=== PATIENT | female | born 1935 | race Caucasian/White ===

== ENCOUNTER 2017-12-17 19:17 | Inpatient (IN) | payer MEDICARE ==
[2017-12-17 21:08] LABS: Troponin I 0.037 ng/mL (< 0.028)
[2017-12-17] MEDS ORDERED: Acetaminophen 325 MG TAB PO PRN ×2 (22:37→23:44)
[2017-12-17] MEDS ORDERED: Dextrose 5% in Water 1,000 ML IV PRN (23:44)
[2017-12-17] MEDS ORDERED: Guaifenesin DM 100-10/5 ML UDCUP PO PRN (23:44)
[2017-12-17] MEDS ORDERED: Dextrose 50% Abboject 50 ML SYRINGE SLOW IVP PRN (23:44)
[2017-12-18] MEDS: Sodium Chloride 0.9% 1,000 ML IV SCH ×3 (00:42→13:58)
[2017-12-18 00:50] LABS: Hemoglobin A1c 6.3 % (4.0-6.0)
[2017-12-18 01:03] LABS: Iron 44 ug/dL (50-170); Iron Binding Capacity, Total 155 mcg/dL (265-497)
[2017-12-18 01:35] LABS: Folate (Folic Acid) 6.8 ng/mL (7.0-31.4)
[2017-12-18 04:54] LABS: #Eosinphils 0.2 thou/uL (0.0-0.7); #Lymphocytes 1.8 thou/uL (1.20-3.40); #Monocytes 0.4 thou/uL (0.11-0.59); %Basophils 0.1 % (0.0-1.0); %Eosinophils 1.6 % (0.0-10.0); %Lymphocytes 12.1 % (21.0-51.0); %Neutrophils 83.1 % (42.0-75.0); Hemoglobin 8.4 g/dL (12.0-16.0); Mean Corpuscular HGB CONC 33.3 g/dL (32.0-36.0); Mean Corpuscular Hemoglobin 30.2 pg (27.0-31.0); Mean Corpuscular Volume 90.9 fl (81.0-99.0); Mean Platelet Volume 6.4 fL (7.4-10.4); Platelet Count 374 thou/uL (130-400); RBC Distribution Width 13.1 % (11.5-14.5); Red Blood Cell (RBC) Count 2.79 mill/uL (4.20-5.40); White Blood Cell (WBC) Count 14.5 thou/uL (4.8-10.8)
[2017-12-18 05:12] LABS: Albumin 2.3 g/dL (3.4-4.8); Anion Gap 18 mmol/L (10-20); BUN (Urea Nitrogen) 102 mg/dL (9.8-20.1); BUN/Creatinine Ratio 15.84; Calc. Creatinine Clearance 7 mL/min (70-130); Calcium 8.1 mg/dL (7.8-10.44); Carbon Dioxide 22 mmol/L (23-31); Chloride 95 mmol/L (98-107); Estimated GFR-MDRD 6; Glucose 89 mg/dL (83-110); Phosphorus 4.8 mg/dL (2.3-4.7); Potassium 3.6 mmol/L (3.5-5.1); Sodium 131 mmol/L (136-145)
[2017-12-18] MEDS: Pantoprazole 40 MG VIAL IVP SCH ×2 (08:10→22:16)
[2017-12-18] MEDS: Docusate 100 MG CAP PO SCH ×2 (08:10→22:16)
[2017-12-18] MEDS: Carvedilol 6.25 MG TAB PO SCH ×2 (08:10→18:00)
--- NOTE | 2017-12-18 08:46 | PDOC.PN ---
- Subjective Encounter Start Date: 12/18/17 Encounter Start Time: 08:45 Continues to report very dry mouth and throat. Reports she has had difficulty with voiding. [place] the urge, but could not void. Denies CP. - Objective Resuscitation Status: Resuscitation Status FULL:Full Resuscitation MAR Reviewed: Yes Vital Signs & Weight: Vital Signs (12 hours) Temp Pulse Resp BP Pulse Ox 12/18/17 08:08 98.6 F 61 19 156/70 H 95 12/18/17 04:00 98.6 F 62 16 138/69 93 L 12/17/17 23:44 93 L 12/17/17 22:50 98.2 F 62 20 93 L 12/17/17 22:39 98.2 F 62 20 134/89 93 L Weight Weight 153 lb 9.6 oz I&O: 12/17/17 12/18/17 12/19/17 06:59 06:59 06:59 Intake Total 788 Output Total 475 Balance 313 Result Diagrams: 12/18/17 03:49 12/18/17 03:49 Additional Labs: Accuchecks 12/18/17 05:49 POC Glucose 105 Phys Exam - Physical Examination Constitutional: NAD HEENT: PERRLA, oral pharynx no lesions Oral mucosa is relatively moist. Neck: no JVD Respiratory: no wheezing, no rales Cardiovascular: RRR Has high pitched holosystolic murmur that could be a rub. Gastrointestinal: soft, non-tender, no distention, positive bowel sounds Musculoskeletal: no edema Neurological: non-focal Psychiatric: normal affect Deviation from normal: Became tearful on discussing her diagnoses. Skin: no rash Dx/Plan (1) Acute renal failure Status: Acute Qualifiers: Acute renal failure type: unspecified Qualified Code(s): N17.9 - Acute kidney failure, unspecified Plan: Unclear etiology. Possibly diabetes and HTN. Possibly obstructive uropathy based her her history. Nephrology consult pending. IVF for now. Evans in place. (2) Anemia Code(s): D64.9 - ANEMIA, UNSPECIFIED Status: Acute Qualifiers: Anemia type: unspecified type Qualified Code(s): D64.9 - Anemia, unspecified Plan: Likely multifactorial. Most likley source is the renal failure. Has low Fe, but low Fe binding capacity. Also has slightly low folate. No specific evidence of GI bleed. Hemoccult pending. Will need to monitor with hydration. (3) Heart failure Code(s): I50.9 - HEART FAILURE, UNSPECIFIED Status: Acute Qualifiers: Heart failure type: unspecified Plan: Suspect high output failure secondary to anemia and possibly dehydration. Echo pending and Cardiology consult pending. (4) Hypertensive urgency Code(s): I16.0 - HYPERTENSIVE URGENCY Status: Resolved Plan: Initially presented to the outside ED with Severe HTN, but resolved quickly. 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 (6) Hearing loss Code(s): H91.90 - UNSPECIFIED HEARING LOSS, UNSPECIFIED EAR Status: Chronic - Plan * Will hold Lovenox until we can rule out GIB. SCD's in place.
[2017-12-18] MEDS ORDERED: Enoxaparin Sodium 30 MG/0.3 ML SYRINGE SC SCH (09:00)
[2017-12-18] MEDS ORDERED: Famotidine 20 MG TAB PO SCH (09:00)
--- NOTE | 2017-12-18 11:52 | ULT ---
ULTRASOUND RENAL BILATERAL STANDARD: Date: 12/18/17 HISTORY: Acute kidney injury. COMPARISON: None. TECHNIQUE: Real-time Quiñonez scale with color evaluation of the kidneys performed. FINDINGS: The right kidney measures 10.7 x 5.0 x 5.2 cm. The left kidney measures 10.8 x 6.2 x 6.3 cm. Moderate left-sided hydronephrosis. No mass. IMPRESSION: 1. Moderate left-sided hydronephrosis. 2. Bilateral echogenic nonshadowing foci suggesting small stones. CT may be beneficial to evaluate f or distal left obstructive process. POS: [facility]
[2017-12-18 12:24] LABS: Mean Corpuscular HGB CONC 32.2 g/dL (32.0-36.0); Mean Corpuscular Hemoglobin 29.2 pg (27.0-31.0); Mean Corpuscular Volume 90.8 fl (81.0-99.0); Mean Platelet Volume 6.3 fL (7.4-10.4); Platelet Count 368 thou/uL (130-400); RBC Distribution Width 12.9 % (11.5-14.5); Red Blood Cell (RBC) Count 2.73 mill/uL (4.20-5.40); White Blood Cell (WBC) Count 14.1 thou/uL (4.8-10.8)
--- NOTE | 2017-12-18 12:49 | HP ---
REASON FOR ADMISSION: Acute renal failure, severe dehydration, chronic anemia, demand ischemia, new onset diabetes mellitus type 2, hypoalbuminemia likely due to renal failure, congestive heart failure exacerbation. HISTORY OF PRESENT ILLNESS: Please note the patient is a very poor historian. She is also very hard of hearing. Most of this conversation is through writing on a sheet of paper with the patient confirming verbally. She states she has been thirsty and could not urinate much. This has been ongoing for few weeks now. She also had trouble passing urine with burning urination as well. She had gone to see her primary care physician 2-3 weeks back. As this was not resolving, the patient went to [facility]. The patient also had generalized weakness and was not feeling right. The patient had gone to [facility] on the with complaints of sore throat, nasal congestion and cough. She had also mentioned about urinary incontinence then. The patient was diagnosed with allergic rhinitis. She in fact had normal creatinine of 1.0 in 2016. Currently, creatinine is 6.8, BUN is 94. Also, patient's hemoglobin was 15 in 2016, current hemoglobin is 9.9 with hematocrit of 27. Her hematocrit was 42 on 11/10/2015. PAST MEDICAL AND SURGICAL HISTORY: Hypertension, diabetes mellitus type 2, dyslipidemia, . CURRENT MEDICATIONS: Metformin 500 mg daily, atenolol with chlorthalidone 100/ 25 mg q.a.m., TriCor 145 mg daily, atorvastatin 80 mg p.o. q.a.m. ALLERGIES: CODEINE. PERSONAL HISTORY: Does not abuse alcohol or drugs. No history of smoking. FAMILY HISTORY: Has a son who is in his 40s with cerebral palsy whom patient takes care of. The patient has outlived all her siblings. Her sister of unknown cancer. REVIEW OF SYSTEMS: The following complete review of systems was negative, unless otherwise mentioned in the HPI or below: Constitutional: Weight loss or gain, ability to conduct usual activities. Skin: Rash, itching. Eyes: Double vision, pain. ENT/Mouth: Nose bleeding, neck stiffness, pain, tenderness. Cardiovascular: Palpitations, dyspnea on exertion, orthopnea. Respiratory: Shortness of breath, wheezing, cough, hemoptysis, fever or night sweats. Gastrointestinal: Poor appetite, abdominal pain, heartburn, nausea, vomiting, constipation, or diarrhea. Genitourinary: Urgency, frequency, dysuria, nocturia. Musculoskeletal: Pain, swelling. Neurologic/Psychiatric: Anxiety, depression. Allergy/Immunologic: Skin rash, bleeding tendency. CODE STATUS: FULL. PHYSICAL EXAMINATION: GENERAL: The patient is an 82-year-old female who is currently not in any acute distress. VITAL SIGNS: Blood pressure on arrival was 199/86, pulse 60 per minute, respiratory rate 18 per minute, temperature 97.9 degrees Fahrenheit, saturating 95% on room air. NECK: Supple, no elevated JVD. HEENT: Eyes: Extraocular muscles intact. Pupils reacting to light. Oral cavity mucous membranes are dry. No exudates or congestion. CARDIOVASCULAR SYSTEM: S1, S2 heard. Regular rhythm. RESPIRATORY: Air entry 1+ bilateral. No rales or rhonchi. ABDOMEN: Soft, bowel sounds heard. No tenderness, rigidity or guarding. EXTREMITIES: No peripheral edema or calf tenderness. VASCULAR SYSTEM: Peripheral pulses 1+ bilateral, no ischemic ulcerations or gangrene. CENTRAL NERVOUS SYSTEM: No gross focal deficits noted. The patient is alert, awake, and oriented well. PSYCHIATRIC SYSTEM: The patient's mood is euthymic. No hallucinations or delusions. LABORATORY AND X-RAY FINDINGS: EKG done shows sinus rhythm at 63 beats per minute. There are signs of LVH with poor R-wave progression seen. White count of 17, H&H 10 and 27, platelet count is 473, MCV 79 with 83% neutrophils. Electrolytes are stable. BUN 94, creatinine 6.8, serum glucose was 121. HbA1c 6.3, serum iron 44, TIBC 155, folic acid 6.8, troponin I indeterminate peaking up to 0.03. BNP is 2397, albumin is 2.7. TSH 2.78. UA shows large blood with trace leukoesterase, 11-20 rbc's, rare few urine bacteria. Chest x-ray done shows mild cardiomegaly. CLINICAL IMPRESSION AND PLAN: The patient will be admitted to telemetry for acute renal failure, possible GI bleed with anemia. The patient also has elevated BNP and hypertensive urgency on arrival. She has demand ischemia as well. She will be on Coreg 6.25 mg twice daily, Protonix 40 mg IV q.12 hourly and normal saline at 100 mL per hour. We will obtain echo with 2D Doppler for LV function. The patient will be kept n.p.o. for possible endoscopies in the morning. We will consult Dr. Thrasher for Gastroenterology, Dr. Roman for Nephrology and Dr. Bowman for Cardiology. We will obtain stool occult blood. The patient had normal renal function and hemoglobin of 15 in November 2015. The patient is a very poor historian and it is unclear if she had melena or bleeding. We will continue to closely monitor her on telemetry. The patient has a hearing device, but still needs the questions to be handwritten for her verbal response. It is unclear if the battery for her hearing aid is working at present and staff will be looking into it to help with better communication. Code status is FULL for now. Please note I have seen and examined on 2017. BHAKTID
[2017-12-18 12:52] LABS: Anion Gap 18 mmol/L (10-20); BUN (Urea Nitrogen) 102 mg/dL (9.8-20.1); Calc. Creatinine Clearance 7 mL/min (70-130); Calcium 8.3 mg/dL (7.8-10.44); Carbon Dioxide 24 mmol/L (23-31); Chloride 96 mmol/L (98-107); Estimated GFR-MDRD 6; Glucose 101 mg/dL (83-110); Potassium 4.3 mmol/L (3.5-5.1); Sodium 134 mmol/L (136-145)
--- NOTE | 2017-12-18 16:31 | CT ---
CT ABDOMEN AND PELVIS WITHOUT CONTRAST: 12/18/17 HISTORY: Hydronephrosis. FINDINGS: Absence of oral and IV contrast reduces the sensitivity of exam particularly for evaluation of solid organs and bowel. Small bilateral pleural effusions are seen. No free air or free fluid is seen in the abdomen or pelvi s. No calcified gallstones are identified. There are calcified granulomas in the liver. Accessory spl eens are present. No calculi are seen in the kidneys, ureters or the urinary bladder. No hydroureteronephrosis noted on either side. There is a Evans catheter in the urinary bladder. A normal appearing appendix is present. The uterus is present. There is sigmoid diverticulosis. There is fecal material in the colon and rectum. Degenerative changes are present in the spine. IMPRESSION: 1. No CT evidence of urinary tract calculi or obstruction. 2. Sigmoid diverticulosis. 3. Small bilateral pleural effusions. POS: [facility]
[2017-12-18] MEDS ORDERED: Bisacodyl 10 MG SUPP PR PRN (17:45)
--- NOTE | 2017-12-18 19:01 | CON ---
DATE OF CONSULTATION: 12/18/2017 REFERRING PHYSICIAN: Dr. Glenory Alfonso. REASON FOR CONSULTATION: Anemia. HISTORY OF PRESENT ILLNESS: Ms. Vernon Ramos is a very pleasant 82-year-old female, wh o was seen in the ER because of history of some difficulty breathing and also feeling weak, dizzy and lethargic. The patient also complains of dry mouth. The patient was found to have multiple abnorma l findings on evaluation. 1. She is anemic. 2. Evidence of acute renal failure with markedly elevated BUN. The patient has no prior history of any kidney disease. The patient is extremely hard of hearing. She is awake, alert, and communicativ e. I was able to write-down the questions on a piece of paper and I got good response from the patie nt. The patient did have abdominal pain, nausea, vomiting. No history of dysphagia or odynophagia. Her bowel movements are fairly regular. There is no hematochezia or any melena. The patient has no prior history of GI disorder. She is being evaluated by Cardiology and also by Nephrology because o f history of heart failure and also acute renal failure. Although there is history of heart failure, she is lying down flat and she is not short of breath. Denies any chest discomfort, chest tightness , or any dyspnea. She has no relevant history. ALLERGIES: None. SOCIAL HISTORY: The patient does not smoke or drink alcohol. MEDICAL ILLNESSES: 1. Hypertension 2. Hyperlipidemia. 3. History of heart murmur and had an echocardiogram in 2009 and was found to have mitral regurgitat ion and also mild tricuspid regurgitation. 4. No history of diabetes, no history of heart disease or lung disease. PAST SURGICAL HISTORY: No prior surgical history is available. MEDICATIONS: Include, metformin, atenolol, TriCor, and atorvastatin. 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 RESPIRATORY SYSTEM: No his tory of chronic cough, hemoptysis, dyspnea. CARDIOVASCULAR SYSTEM: No chest pain, no palpitation. Does have some dyspnea on admission, but she is not having this anymore. GI: No abdominal pain, no nausea or vomiting. No hematemesis, melena or dysphagia. GENITOURINARY: No dysuria or hematuria. MUSCULOSKELETAL/ENDOCRINE/HEMATOLOGICAL: Nonrelevant. NEUROPSYCHIATRIC: Nonrelevant. CONSTITUTION AL: No history of fever, no weight loss. PHYSICAL EXAMINATION: GENERAL: Reveals a very pleasant, elderly white female, appears very comfortable. She does communic ate by writing on a piece of paper. She is very hard of hearing. VITAL SIGNS: Afebrile, pulse is around 68, and blood pressure 160/90. HEENT: Conjunctivae clear. NECK: Supple. No adenitis or thyromegaly noted. CARDIOVASCULAR SYSTEM: First and second heart sounds are normal. She has a systolic murmur grade 3/ 6. LUNGS: Clear to auscultation. ABDOMEN: Soft to palpate. Abdomen is nondistended. Abdomen is nontender. There is no organomegaly or masses. Bowel sounds normal. EXTREMITIES: Reveal no edema. LABORATORY DATA: Shows anemia, which is actually normocytic. WBC 14,500, hemoglobin 8.4, hematocrit 26.4, MCV 90.9, platelet count 374,000, polymorphs 83, lymphocytes 12, and monocytes 3. Serum chemi stries; sodium 131, potassium 3.6, chloride 95, bicarbonate 22, BUN is 102, creatinine 6.44, glucose 89, calcium 8.1. Serum iron is 44, TIBC 155, ferritin level is high at 2438. Vitamin B12 893 and fo late 6.80. CLINICAL IMPRESSION: 1. An 82-year-old female with anemia with acute renal failure. The anemia is normocytic. She has iron deficiency. The anemia is multifactorial including anemia of chronic diseases, renal f ailure, etc. The patient has no history of any GI bleeding in form of melena or hematemesis. 2. Hypertension. 3. Hyperlipidemia. 4. Acute renal failure. 5. Heart murmur with echo showing mitral regurgitation in 2009. RECOMMENDATIONS: 1. Obtain stool for guaiac. 2. Symptomatic treatment. does plan for colonoscopy if guaiac is positive.
--- NOTE | 2017-12-18 19:12 | CON ---
DATE OF CONSULTATION: 12/18/2017 CARDIOLOGY CONSULTATION INDICATION FOR CONSULTATION: She is an elderly 82-year-old female with acute renal insufficiency and history of anemia. She denies any previous cardiac history. She does have evidence of left ventricular hypertrophy. We were asked to see her for possible heart failure. HISTORY OF PRESENT ILLNESS: This is a very pleasant 82-year-old female who appears to have some form of dementia. She is very difficult to have a discussion with. She does have hearing loss and apparently has some dementia. She presented apparently as she says she has been complaining of increasing fatigue. She was admitted due to hypertensive urgency. She does have a history of diabetes and anemia and was noted to have acute renal failure with a creatinine of 6.44. As far as any of the history, I am unable to obtain any further history from this patient. She seems to be very fatigued today and kept saying that she was just tired and she was very hesitant to answer any questions at this time, but from what I can ascertain, she denies any chest pain. She has had no significant shortness of breath. She says that she has been having some problems urinating. Otherwise, she has I believe complained of some sore throat previously and some nasal congestion. PAST MEDICAL HISTORY: Significant for diabetes, hypertension. She has had a C- section and dyslipidemia. MEDICATIONS PRIOR TO ADMISSION: Included atenolol, chlorthalidone, metformin, TriCor and atorvastatin. ALLERGIES: Allergic to CODEINE. SOCIAL HISTORY: There is no history of alcohol and tobacco abuse. FAMILY HISTORY: Noncontributory for any early heart disease. She has one son who is 40 with cerebral palsy and the patient apparently has been taking care of him. REVIEW OF SYSTEMS: Please refer to the notes already dictated. She did not complain of any pulmonary complaints or GI complaints at this time except some indigestion type symptoms and decreased appetite, but she had no complaints of chest pain and she has had no complaints of lower extremity edema. No history of seizures or syncope. PHYSICAL EXAMINATION: GENERAL: Reveals an elderly female who is in no acute distress. She appears to be fatigued. VITAL SIGNS: Her blood pressure is 147/64, heart rate is 60 and regular, respiratory rate is 16. She is afebrile. O2 saturation is 95%. HEENT: Shows the head to be normocephalic, atraumatic. Carotid pulses are present without any bruits. CHEST: Clear. I did not hear any rales, rhonchi or wheezing. CARDIOVASCULAR: She has a loud systolic murmur at the apex, also which radiates over the entire precordium, most likely due to mitral valve regurgitation. Otherwise, there were no heaves or thrills noted. ABDOMEN: Soft and nontender. Positive bowel sounds are present. She has obesity. EXTREMITIES: Showed no clubbing, cyanosis or edema. Pedal pulses are difficult to palpate, but popliteal pulses are present. NEUROLOGIC: She does not have any gross focal motor deficits, but does appear to be fatigued. IMAGING: Her EKG shows a sinus rhythm with evidence of left ventricular hypertrophy, but otherwise no acute changes. LABORATORY DATA: Unremarkable for any evidence of myocardial infarction, but her creatinine is now 6.52, earlier it was 6.44 with a BUN of 102. I do not see that we have evaluated for any specific cardiac enzymes. Her potassium was 4.3. Blood sugar is 113. Hemoglobin is 8 with a hematocrit of 24.8, WBC of 14.1 and platelet count of 368,000. Her MB in the past, she had one yesterday and it showed the MB to be negative. Troponin I also was indeterminate at 0.037 , not indicative of myocardial infarction. Her LDL was 97. TIBC was low at 155. 1. Acute renal insufficiency. 2. Anemia. 3. generalized weakness. At this time, she appears to be stable from a cardiac standpoint. I will await the results of the echocardiogram and this will be available later today, we can evaluate that. Otherwise, I do not have any further recommendations at this time. We will try to determine the etiology of her anemia to see whether or not she needs further evaluation or workup as far as that is concerned, but the echocardiogram will be giving some insight as to exactly whether or not she has any major issues from a cardiac standpoint. I did not believe she is a good candidate at this time to undergo any type of interventional procedure otherwise from a cardiac standpoint. We would be more than happy to follow the patient with you, but it would appear that her most significant problems are due to the chronic kidney disease, which may be acute on chronic as well as the anemia. Echocardiogram has been ordered and we will evaluate that later today and further recommendations will depend on the results of the echocardiogram. CLAUDY
[2017-12-18] MEDS ORDERED: Bisacodyl 10 MG SUPP PR SCH (19:15)
[2017-12-18 22:58] LABS: Creatinine, Urine 36.21 mg/dL (47-110)
--- NOTE | 2017-12-19 01:41 | CON ---
DATE OF CONSULTATION: 12/18/2017 REASON FOR CONSULT: Acute renal failure, hydronephrosis. HISTORY OF PRESENT ILLNESS: Ms. Ramos is an 82-year-old female, hard of hearing, poor historian admitted through the emergency room due to severe dehydration, chronic anemia, new onset diabetes, exacerbation of heart failure. Per nursing staff, patient complained of difficulty voiding, 16 [place] Evans catheter was placed by nursing staff on the floor with 400 mL of post-void residual. There was some difficulty passing the catheter per nursing staff; however, was passed without significant issues. Currently, urine is draining clear yellow. There is a remote history of possible kidney stones, patient again does not recall her history. No family at bedside. She has difficulty quantifying her history as far as her urinary symptoms. Much of the history is obtained per chart and imaging reviewed. Nephrology has been consulted due to significant uremia, BUN of 102, creatinine of 6.8 on admission. She presented with sodium of 131. Also per nursing staff, there is a history where she had possible otitis and poured oil like product down her ear which she subsequently digested resulting in sore throat and cough. PAST MEDICAL HISTORY: Hypertension, diabetes, dyslipidemia. PAST SURGICAL HISTORY: . HOME MEDICATIONS: Include metformin, chlorthalidone, TriCor, and statin. IN HOUSE MEDICATIONS: Include Tylenol, Coreg, glucagon, Colace, Robitussin, and Humalog. 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 REVIEW OF SYSTEMS: Ten-point review of systems as above, otherwise noncontributory. PHYSICAL EXAMINATION: VITAL SIGNS: Stable, temperature 98, pulse 60, respirations 16, sats 95, blood pressure 147/61. GENERAL: The patient resting comfortably. HEART: Regular rate. LUNGS: Decreased inspiratory effort. ABDOMEN: Soft with no rigidity, no rebound, no CVA tenderness. GENITOURINARY: Evans catheter is secured, draining clear yellow urine. There is severe atrophic vaginitis. The urethral meatus is easily visible. No significant prolapse is appreciated. EXTREMITIES: No cyanosis, clubbing, or edema. PERTINENT LABS AND IMAGING: White count 14, hemoglobin 8, platelets 368. No significant shift, presented with sodium of 131, today is 134. Presenting creatinine is 6.8, today is 6.5. BUN 102. Prior creatinine is 1.0 on 11/2015. Hemoglobin A1c on 12/2017 is 6.3. Urinalysis: Yellow, 100 protein, trace leukocytes, 0-3 wbc's, no bacteria, 0-3 squamous cells, 11-20 rbc's and this is a catheterized specimen. IMAGING: Renal ultrasound demonstrates moderate left hydronephrosis, bilateral echogenic foci suggesting small kidney stones, recommend CT. CT stone protocol obtained this afternoon on 12/18/2017 demonstrates no evidence of obstruction, renal calculi or ureteral calculi. Evans catheter in the bladder, sigmoid diverticulosis, small bilateral pleural effusion. IMPRESSION AND PLAN: 1. Ms. Ramos is an 82-year-old female, hard of hearing with history of diabetes, hypertension, dyslipidemia, admitted for vague complaints as above found to have renal failure, congestive heart failure exacerbation. 2. The patient uremic with BUN of 102, creatinine 6.5. CT scan results reviewed with radiologist demonstrating no evidence of obstructive uropathy, no evidence of ureteral renal calculi. She presented with hesitancy and 400 mL of post-void residual, there is a possibility that hydronephrosis was due to acute urinary retention. Recommend indwelling Evans catheter for now as the patient is being optimized medicall/ Nephrology regarding acute renal failure which is likely prerenal/renal. Microscopic hematuria likely due to catheter placed specimen. Elective cystoscopy would be advised. Avoid nephrotoxins. Urine culture pending. Continue indwelling Evans catheter for now for strict I's and O's. 3. Constipation. Recommend Dulcolax suppository p.r.n. as it can excess the urinary retention. 4. Voiding trial in a few days, pending her medical optimization. [facility]
[2017-12-19 05:23] LABS: #Eosinphils 0.2 thou/uL (0.0-0.7); #Lymphocytes 1.5 thou/uL (1.20-3.40); #Monocytes 0.5 thou/uL (0.11-0.59); #Neutrophils 12.1 thou/uL (1.40-6.50); %Basophils 0.1 % (0.0-1.0); %Eosinophils 1.6 % (0.0-10.0); %Lymphocytes 10.4 % (21.0-51.0); %Monocytes 3.3 % (0.0-10.0); %Neutrophils 84.6 % (42.0-75.0); Hemoglobin 7.8 g/dL (12.0-16.0); Mean Corpuscular HGB CONC 33.3 g/dL (32.0-36.0); Mean Platelet Volume 5.8 fL (7.4-10.4); Platelet Count 339 thou/uL (130-400); RBC Distribution Width 13.1 % (11.5-14.5); Red Blood Cell (RBC) Count 2.61 mill/uL (4.20-5.40); White Blood Cell (WBC) Count 14.3 thou/uL (4.8-10.8)
[2017-12-19 05:38] LABS: ALT (SGPT) 19 U/L (8-55); AST (SGOT) 16 U/L (5-34); Albumin 2.3 g/dL (3.4-4.8); Alkaline Phosphatase 89 U/L (40-150); Anion Gap 18 mmol/L (10-20); BUN (Urea Nitrogen) 97 mg/dL (9.8-20.1); Bilirubin, Total 0.3 mg/dL (0.2-1.2); Calc. Creatinine Clearance 7 mL/min (70-130); Calcium 8.3 mg/dL (7.8-10.44); Carbon Dioxide 20 mmol/L (23-31); Chloride 99 mmol/L (98-107); Estimated GFR-MDRD 6; Globulin 3.8 g/dL (2.4-3.5); Glucose 102 mg/dL (83-110); Potassium 3.6 mmol/L (3.5-5.1); Protein, Total 6.1 g/dL (6.0-8.3); Sodium 133 mmol/L (136-145)
--- NOTE | 2017-12-19 08:08 | CON ---
DATE OF CONSULTATION: 12/18/2017 CONSULTING PHYSICIAN: Glenroy Alfonso MD REASON FOR CONSULTATION: Acute kidney injury. REASON FOR ADMISSION: Fatigue. HISTORY OF PRESENT ILLNESS: This is an 82-year-old white female with history of hypertension, type 2 diabetes, hyperlipidemia who came to the hospital with above complaint elevated creatinine. H er creatinine on admission was 6.8 to 6.4. Her last creatinine in 2015 was 1.06 that was available. The patient is a poor historian. Denies any fever or chills. No nausea or vomiting. No chest pain . She is having some sore throat, nasal congestion, and cough. PAST MEDICAL HISTORY: Positive for hypertension, type 2 diabetes, hyperlipidemia. PAST SURGICAL HISTORY: . HOME MEDICATIONS: Metformin, atenolol/chlorthalidone, atorvastatin calcium. ALLERGIES: CODEINE. SOCIAL HISTORY: No smoking, alcohol, or illicit drug abuse. FAMILY HISTORY: No history of kidney disease. REVIEW OF SYSTEMS: The following complete review of systems was negative, unless otherwise mentioned in the HPI or below: Constitutional: Weight loss or gain, ability to conduct usual activities. Skin: Rash, itching. Eyes: Double vision, pain. ENT/Mouth: Nose bleeding, neck stiffness, pain, tenderness. Cardiovascular: Palpitations, dyspnea on exertion, orthopnea. Respiratory: Shortness of breath, wheezing, cough, hemoptysis, fever or night sweats. Gastrointestinal: Poor appetite, abdominal pain, heartburn, nausea, vomiting, constipation, or diarrhea. Genitourinary: Urgency, frequency, dysuria, nocturia. Musculoskeletal: Pain, swelling. Neurologic/Psychiatric: Anxiety, depression. Allergy/Immunologic: Skin rash, bleeding tendency. PHYSICAL EXAMINATION: GENERAL: This is a well-built female in no apparent distress. VITAL SIGNS: Temperature 97.5, pulse 58, respirations 16, blood pressure 144/64. HEENT: Atraumatic, normocephalic. Oral mucosa is moist. NECK: Supple. No masses. CARDIOVASCULAR: S1, S2 heard. RESPIRATORY: Clear. GASTROINTESTINAL: Abdomen soft. MUSCULOSKELETAL: 1+ edema. DERMATOLOGIC: No skin rash. NEUROLOGIC: Alert, awake. PSYCHIATRIC: Mood and affect normal. LABORATORY AND X-RAY FINDINGS: Hemoglobin is 8, WBC of 14.1, platelets 368. Sodium 134, potassium i s 4.3, BUN is 102, creatinine is 6.5, hemoglobin A1c is 6.3, phosphorus 4.8, 28, ferritin is 24 38. No urine studies available. Renal ultrasound with possible left-sided hydronephrosis and calcul i, but CT abdomen with no calculi, no obstruction. ASSESSMENT: 1. Acute kidney injury on chronic kidney disease, stage not known. No recent labs available. The p atient apparently had upper respiratory symptoms, which could suggest immunological causes. Plan is to check urine studies and urine protein to creatinine ratio. We will also rule out and ANCA and ant i-GBM. We will also check SPEP given the anemia. No iron deficiency noted. 2. Hyponatremia. 3. Hypochloremia. 4. Metabolic acidosis, resolved. 5. Possible aortic stenosis. Follow up with echo. 6. Elevated BNP. 7. Hypoalbuminemia. We will check urine protein to creatinine ratio. 8. Anemia. No obvious cause. Rule out any bleed. We will rule out any immunological causes given ANCA or SPEP. 9. Leukocytosis. 10. Left-sided hydronephrosis. We will have Urology opinion, but repeated CT scan ordered by Urolog y with no obstruction. PLAN: Plan is to reduce the IV fluids to 50 mL per hour. Avoid nephrotoxins. Renally dose all the medications. Current medication list reviewed and is acceptable and moving forward renally dose all the medications and we will continue to follow. We will also check CKD labs including PTH. The carlotta ent remains high risk for complications and cause for acute kidney injury not apparent, but there is no acute indication for dialysis. We will continue to follow. Thank you for the consult.
[2017-12-19] MEDS ORDERED: Epoetin (ESRD) 10,000 UNITS/ML VIAL SC SCH (09:00)
[2017-12-19] MEDS ORDERED: Folic Acid 1 MG TAB PO SCH (09:00)
[2017-12-19] MEDS: Pantoprazole 40 MG VIAL IVP SCH ×2 (09:03→20:51)
[2017-12-19] MEDS: Carvedilol 6.25 MG TAB PO SCH ×2 (09:03→16:34)
[2017-12-19] MEDS: Docusate 100 MG CAP PO SCH ×2 (09:03→20:51)
[2017-12-19] MEDS: Folic Acid 1 MG TAB PO SCH (09:04)
[2017-12-19] MEDS: Sodium Chloride 0.9% 1,000 ML IV SCH (10:13)
--- NOTE | 2017-12-19 10:31 | PRG ---
DATE OF SERVICE: 12/19/2017 SUBJECTIVE: The patient is sleeping, easily arousable. PHYSICAL EXAMINATION: VITAL SIGNS: Stable 97.2, 69, 20, 97%, 111/68. I's and O's are 2295 in, 625 out, one bowel movement. Urine output is concentrated yellow. ABDOMEN: Soft, nontender, nondistended. GENITOURINARY: Evans catheter draining adequately. LABORATORY DATA: White blood cell count 14, hemoglobin 7.8, platelets 239, BUN is 97, creatinine on admission is 6.4, today is 6.6. PERTINENT IMAGING: Follow up renal ultrasound demonstrating left hydronephrosis. CT demonstrated no evidence of hydronephrosis. No urinary tract obstruction. Sigmoid diverticulosis. Small bilateral pleural effusion. IMPRESSION/PLAN: 1. Ms. Ramos is an 82-year-old female with history of diabetes, hypertension. 2. Urologic consultation secondary to acute renal failure. 3. Follow up for renal ultrasound demonstrating left hydro demonstrates no evidence of hydronephrosis. 4. She presented with symptoms of hesitancy 400 mL of post-void residual, there is a possibility that this resulted in the initial left hydro; however, this has resolved with no evidence of hydronephrosis. Microscopic hematuria noted with catheter placement. Continue indwelling Evans catheter for now for strict I's and O's. 5. Constipation, treat p.r.n. as constipation can exacerbate urinary retention. will initiate voiding trial once her renal function stabilized and disposition per Renal has been finalized. will follow p.r.n. MTDD
--- NOTE | 2017-12-19 10:56 | PDOC.PN ---
- Subjective Encounter Start Date: 12/19/17 Encounter Start Time: 10:54 COMPLAINS OF A HEADACHE AND GENERALIZED FATIGUE. - Objective Resuscitation Status: Resuscitation Status FULL:Full Resuscitation Vital Signs & Weight: Vital Signs (12 hours) Temp Pulse Resp BP Pulse Ox 12/19/17 08:00 97.2 F L 69 20 97 12/19/17 07:25 97.2 F L 69 20 114/68 97 12/19/17 04:00 98.6 F 64 16 144/67 H 92 L Weight Weight 152 lb I&O: 12/18/17 12/19/17 12/20/17 06:59 06:59 06:59 Intake Total 788 2295 Output Total 475 625 Balance 313 1670 Result Diagrams: 12/19/17 05:08 12/19/17 05:08 Additional Labs: Accuchecks 12/19/17 12/18/17 12/18/17 06:03 20:31 16:47 POC Glucose 146 H 109 156 H 12/18/17 10:41 POC Glucose 113 H Phys Exam - Physical Examination Constitutional: NAD HEENT: PERRLA, oral pharynx no lesions Respiratory: no wheezing, no rales, no rhonchi, clear to auscultation bilateral Cardiovascular: RRR HIGH PITCHED APICAL MURMUR Gastrointestinal: soft, non-tender, no distention, positive bowel sounds Musculoskeletal: no edema Neurological: non-focal Deviation from normal: APPEARS TEARFUL AT TIMES AND THEN ABRUPTLY STOPS. Skin: no rash Dx/Plan (1) Acute renal failure Status: Acute Qualifiers: Acute renal failure type: unspecified Qualified Code(s): N17.9 - Acute kidney failure, unspecified Plan: NEPHROLOGY FOLLOWING. EVIDENCE OF MORE CHRONIC RENAL FAILURE AND THE CREATININE CONTINUES TO CLIMB. DISCUSSED WITH PATIENT THE FACT THAT HER RENAL FUNCTION IS WORSENING AND MAY ULTIMATELY RESULT THE NEED FOR DIALYSIS. HAS ELEVATED PTH AND PHOS WITH LOW VITAMIN D. WILL DEFER INTERVENTION TO NEPHROLOGY. UROLOGY DOES NOT APPRECIATE A POST-RENAL SOURCE OF THE RENAL FAILURE. WORK STILL ONGOING. (2) Anemia Code(s): D64.9 - ANEMIA, UNSPECIFIED Status: Acute Qualifiers: Anemia type: unspecified type Qualified Code(s): D64.9 - Anemia, unspecified Plan: EVALUATED BY GI. NO EVIDENCE OF GI BLEEDING. WILL HEME CHECK STOOLS. NONE SO FAR. HEMOGLOBIN CONTINUES TO DECLINE WITH HYDRATION. HAS SOME FE DEFICIENCY, BUT LOW BINDING CAPACITY. LIKELY MULTIFACTORIAL, BUT PRIMARILY RELATED TO RENAL FAILURE. WILL CONTINUE TO MONITOR. (3) Heart failure Code(s): I50.9 - HEART FAILURE, UNSPECIFIED Status: Acute Qualifiers: Heart failure type: unspecified Plan: CARDIOLOGY FOLLOWING. NO SUGGESTION OF SIGNIFICANT CARDIAC PATHOLOGY. (4) Hypertensive urgency Code(s): I16.0 - HYPERTENSIVE URGENCY Status: Resolved (5) Diabetes Code(s): E11.9 - TYPE 2 DIABETES MELLITUS WITHOUT COMPLICATIONS Status: Chronic Qualifiers: Diabetes mellitus type: type 2 Diabetes mellitus residential insulin use: without intermediate frame tender use Plan: BLOOD SUGARS WELL CONTROLLED. (6) Hearing loss Code(s): H91.90 - UNSPECIFIED HEARING LOSS, UNSPECIFIED EAR Status: Chronic - Plan * ABOVE.
[2017-12-19 12:43] LABS: ANA Symphony (Qualitative) Negative (Negative); EliA Vaculitis New Method **** NEW METHOD ****; Glomerular Basemt Membrane Ab 1.9 EliAU/mL (<7 Negative)
--- NOTE | 2017-12-19 13:39 | PDOC.CTH ---
<Jeimy Bennett - Last Filed: 12/19/17 13:35> Cardiology Progress Note - Subjective The pt seen and examined. No overnight events. No cardiac complaints. [place], but she can follow up commands and read. - Objective Vital Signs Temp Pulse Resp BP Pulse Ox 12/19/17 11:28 98.2 F 66 16 152/67 H 96 12/19/17 08:00 97.2 F L 69 20 97 12/19/17 07:25 97.2 F L 69 20 114/68 97 12/19/17 04:00 98.6 F 64 16 144/67 H 92 L Weight 152 lb 12/18/17 12/19/17 12/20/17 06:59 06:59 06:59 Intake Total 788 2295 Output Total 475 625 Balance 313 1670 - Physical Examination General/Neuro: alert & oriented x3 Neck: no JVD present Lungs: CTA Heart: RRR Abdomen: soft Extremities: other: (No edema) - Telemetry Telemetry Rhythm: SR - Labs Result Diagrams: 12/19/17 05:08 12/19/17 05:08 Troponin/CKMB Troponin I 0.037 ng/mL (< 0.028) H 12/17/17 20:30 - Assessment/Plan 1. Acute renal failure with elevated PTH - 2. Anemia - No evidence of GI bleeding; possible due to HANSEL? 3. HTN - Start Norvasc 5mg qd; 4. Hyperlipidemia - on Statin 5. DM type 2 - managed by PCP 6. Dementia - stable MAR reviewed * Echo on 12/18/17 showed EF 60-65%, mod-severe dilated LA, mod MR, mild Ar, mod -severe with valve area 1.05 sq cm, mild TR. Review of Systems - Review of Systems Constitutional: reports: no symptoms reported EENTM: reports: no symptoms reported Respiratory: reports: no symptoms reported Cardiac (ROS): reports: no symptoms reported ABD/GI: reports: no symptoms reported : reports: no symptoms reported <Darrius Bowman - Last Filed: 12/19/17 20:31> Cardiology Progress Note - Objective Vital Signs Temp Pulse Resp BP BP Pulse Ox 12/19/17 15:32 97.7 F 66 16 136/59 L 94 L 12/19/17 13:56 66 153/70 H 12/19/17 11:28 98.2 F 66 16 152/67 H 96 Weight 152 lb 12/18/17 12/19/17 12/20/17 06:59 06:59 06:59 Intake Total 788 2295 1056 Output Total 475 625 525 Balance 313 1670 531 - Labs Result Diagrams: 12/19/17 05:08 12/19/17 05:08 Troponin/CKMB Troponin I 0.037 ng/mL (< 0.028) H 12/17/17 20:30 - Assessment/Plan Pt. seen and eval. by me. I agree with the A/P by the ELL TEACHER. She has worsening renal function. The echo indicates mod-severe . Nl. EF Chest clear. RRR. No further recommendations at tis time.
[2017-12-19] MEDS ORDERED: Amlodipine 5 MG TAB PO SCH (13:45)
--- NOTE | 2017-12-19 17:24 | PRG ---
DATE OF SERVICE: 12/19/2017 SUBJECTIVE: Patient was seen and examined at bedside and overnight events noted. Patient denies any shortness of breath or chest pain or palpitation. No history of nausea or vomiting or diarrhea or fever or chills or cramps. OBJECTIVE: GENERAL: This is a elderly female, in no apparent distress VITAL SIGNS: Temperature 98.2, pulse 62, respiratory rate 18, blood pressure 152/67. HEENT: Atraumatic, normocephalic. Oral mucosa is moist NECK: Supple CARDIOVASCULAR: S1S2 heard, Rate and rhythm regular. RESPIRATORY: Clear to auscultation. GASTROINTESTINAL: Abdomen is soft. MUSCULOSKELETAL: No tenderness. No edema. DERMATOLOGIC: No skin rash. NEUROLOGIC: Alert and awake and oriented x3. No focal neurologic deficits. Moving all the extremit ies. PSYCHIATRIC: Mood and affect normal. LABORATORY DATA: Hemoglobin is 7.8, potassium 3.6, BUN 97, creatinine 6.6. PTH is 228. Vitamin D 20. Urine protein around 1 gram. MIKE is negative. Anti-dsDNA is negative. ASSESSMENT AND PLAN: 1. Acute kidney injury, etiology unclear, less likely due to volume depletion, now improvement with IV hydration. No obstruction noted. I appreciate help from Urology and is negative so far. Awayajaira medellin for further hematologic labs. The patient might need renal biopsy to diagnose the cause. Family i s aware. I had discussion with the son and [id number]. 2. Hyponatremia, monitor. 3. Metabolic acidosis, most likely from renal failure. 4. Moderate to severe aortic stenosis. 5. Anemia, most likely from chronic disease, rule out bleed. 6. Leukocytosis. ANCA and SPEP is pending. Might need renal biopsy. Hold aspirin for now and cautious use of blood t hinners. Continue blood pressure control. She might need a renal biopsy this week. We will follow.
[2017-12-19] MEDS: Atorvastatin Calcium 40 MG TAB PO SCH (20:51)
--- NOTE | 2017-12-19 22:53 | PRG ---
DATE OF SERVICE: 12/19/2017 SUBJECTIVE: Ms. Vernon Ramos is a very pleasant 82-year-old female hospitalized [facility] of anemia, renal failure. The patient has had no abdominal pain, no nausea, no vomiting. There is no history of black tarry stool. No rectal bleeding. She is being seen by Cardiology, Nephrology a nd Urology because of the renal failure and also history of some shortness of breath. The patient ortega s had no stool studies. The patient has had no stool and no Hemoccult has been done so far. Her blo od count did drop down from 8.4-7.8. Correspondingly, her BUN has dropped down to 97 and 6.69 creati nine. The patient has no GI symptoms whatsoever. PHYSICAL EXAMINATION: GENERAL: She appears very comfortable. VITAL SIGNS: Pulse is 66, blood pressure 136/59. CARDIOVASCULAR SYSTEM: First and second heart sounds normal. She has systolic murmur. LUNGS: Clear to auscultation. ABDOMEN: Soft to palpate. No organomegaly. No tenderness. No masses. RECOMMENDATIONS: 1. Follow up H&H. 2. Stool for Hemoccult test. Positive for Hemoccult, we will plan for GI workup.
[2017-12-20] MEDS: Sodium Chloride 0.9% 1,000 ML IV SCH (05:22)
[2017-12-20] MEDS: Carvedilol 6.25 MG TAB PO SCH ×2 (08:46→17:24)
[2017-12-20] MEDS: Pantoprazole 40 MG VIAL IVP SCH ×2 (08:46→20:42)
[2017-12-20] MEDS: Docusate 100 MG CAP PO SCH ×2 (08:46→20:42)
[2017-12-20] MEDS: Folic Acid 1 MG TAB PO SCH (08:47)
[2017-12-20] MEDS: Amlodipine 5 MG TAB PO SCH (08:47)
[2017-12-20 10:13] LABS: #Eosinphils 0.2 thou/uL (0.0-0.7); #Monocytes 0.4 thou/uL (0.11-0.59); #Neutrophils 12.7 thou/uL (1.40-6.50); %Basophils 0.3 % (0.0-1.0); %Eosinophils 1.4 % (0.0-10.0); %Lymphocytes 7.1 % (21.0-51.0); %Monocytes 2.8 % (0.0-10.0); %Neutrophils 88.4 % (42.0-75.0); Hemoglobin 7.4 g/dL (12.0-16.0); Mean Corpuscular HGB CONC 32.6 g/dL (32.0-36.0); Mean Corpuscular Hemoglobin 29.5 pg (27.0-31.0); Mean Corpuscular Volume 90.6 fl (81.0-99.0); Mean Platelet Volume 6.4 fL (7.4-10.4); Platelet Count 342 thou/uL (130-400); RBC Distribution Width 13.2 % (11.5-14.5); Red Blood Cell (RBC) Count 2.51 mill/uL (4.20-5.40); White Blood Cell (WBC) Count 14.3 thou/uL (4.8-10.8)
[2017-12-20 10:38] LABS: Anion Gap 18 mmol/L (10-20); BUN (Urea Nitrogen) 100 mg/dL (9.8-20.1); Calc. Creatinine Clearance 7 mL/min (70-130); Calcium 8.2 mg/dL (7.8-10.44); Carbon Dioxide 20 mmol/L (23-31); Chloride 100 mmol/L (98-107); Estimated GFR-MDRD 6; Glucose 185 mg/dL (83-110); Potassium 3.5 mmol/L (3.5-5.1); Sodium 134 mmol/L (136-145)
--- NOTE | 2017-12-20 12:57 | PRG ---
DATE OF SERVICE: 12/20/2017 SUBJECTIVE: This is an elderly female in no apparent distress. PHYSICAL EXAMINATION: VITAL SIGNS: Temperature 99.4, pulse 60, respiratory rate 18, blood pressure 126/67. LABORATORY DATA: Potassium 3.5, BUN 100, creatinine 6.7. ASSESSMENT AND PLAN: 1. Acute kidney injury versus most likely chronic kidney disease stage 5, etiology not clear. Labs are negative so far. Plan is to have renal biopsy. Patient is agreeable. We will arrange for the r enal biopsy. 2. Hyponatremia. 3. Metabolic acidosis. 4. Moderate to severe aortic stenosis. 5. Anemia. 6. Leukocytosis. Plan is to stop the intravenous fluids. Avoid aspirin and will await for renal biopsy.
[2017-12-20 12:58] LABS: INR-International Normal Ratio 1.6; PTT 38.8 SEC (22.9-36.1)
[2017-12-20] MEDS ORDERED: Sodium Bicarbonate 2.5 MEQ/5 ML VIAL ONE (13:24)
[2017-12-20] MEDS ORDERED: Fentanyl 100 MCG/2 ML VIAL ONE (13:25)
[2017-12-20 15:25] LABS: Kappa Lambda Light Chain Ratio 2.55 (0.26-1.65); Kappa Light Chains 290.4 mg/L (3.3-19.4)
--- NOTE | 2017-12-20 15:41 | PDOC.PN ---
- Subjective Encounter Start Date: 12/20/17 Encounter Start Time: 14:30 Denies complaints. - Objective Resuscitation Status: Resuscitation Status FULL:Full Resuscitation Vital Signs & Weight: Vital Signs (12 hours) Temp Pulse Resp BP Pulse Ox 12/20/17 12:00 97.9 F 69 18 132/62 92 L 12/20/17 08:00 98.4 F 63 18 147/67 H 92 L 12/20/17 04:00 97.9 F 65 20 126/67 93 L Weight Weight 154 lb 1.6 oz I&O: 12/19/17 12/20/17 12/21/17 06:59 06:59 06:59 Intake Total 2295 1678 350 Output Total 625 800 Balance 1670 878 350 Result Diagrams: 12/20/17 09:56 12/20/17 09:56 Additional Labs: Accuchecks 12/20/17 12/20/17 12/19/17 11:08 06:11 16:48 POC Glucose 285 H 121 H 128 H Phys Exam - Physical Examination Constitutional: NAD HEENT: oral pharynx no lesions Neck: no JVD, supple Respiratory: no wheezing, no rales, no rhonchi, clear to auscultation bilateral Cardiovascular: RRR high pitched systolic murmur Gastrointestinal: soft, non-tender, no distention, positive bowel sounds Musculoskeletal: no edema Neurological: non-focal Patient's hearing deficit is profound. Conversation is difficult at times. She seems to understand the situation well, but she does not talk much. Psychiatric: normal affect Skin: no rash Dx/Plan (1) Acute renal failure Status: Acute Qualifiers: Acute renal failure type: unspecified Qualified Code(s): N17.9 - Acute kidney failure, unspecified Plan: NEPHROLOGY FOLLOWING. STILL ASSESSING FOR THE CAUSE OF THE FAILURE. MAY BE MORE CHRONIC IN NATURE, BUT CREATININE IS EDGING UPWARD DAILY. RENAL BIOPSY PENDING. DISCUSSED WITH THE PATIENT THE POSSIBLE NEED FOR DIALYSIS. DISCUSSED WITH CM. PATIENT LIVES FAIRLY REMOTE AND WILL HAVE TO COMMUTE TO A DIALYSIS CENTER AFTER DISCHARGE SHOULD THAT BE NEEDED. (2) Anemia Code(s): D64.9 - ANEMIA, UNSPECIFIED Status: Acute Qualifiers: Anemia type: unspecified type Qualified Code(s): D64.9 - Anemia, unspecified Plan: MOST LIKELY DUE TO CHRONIC KIDNEY DISEASE, BUT THE CHRONICITY HAS NOT BEEN FULLY ESTABLISHED YET. (3) Heart failure Code(s): I50.9 - HEART FAILURE, UNSPECIFIED Status: Acute Qualifiers: Heart failure type: unspecified Plan: SHE REALLY APPEARS TO BE MORE SYMPTOMATIC FROM THE UREMIA AND DOES NOT HAVE A SIGNIFICANT COMPONENT OF CHF. CARDIOLOGY FOLLOWING WITH NO NEW RECOMMENDATIONS. (4) Hypertensive urgency Code(s): I16.0 - HYPERTENSIVE URGENCY Status: Resolved (5) Diabetes Code(s): E11.9 - TYPE 2 DIABETES MELLITUS WITHOUT COMPLICATIONS Status: Chronic Qualifiers: Diabetes mellitus type: type 2 Diabetes mellitus long-term insulin use: without keno terminal operator use (6) Hearing loss Code(s): H91.90 - UNSPECIFIED HEARING LOSS, UNSPECIFIED EAR Status: Chronic - Plan * CONTINUE TO MONITOR RENAL FUNCTION. MAY NEED HD, BUT HAS NOT HAD A SPECIFIC INDICATION YET.
--- NOTE | 2017-12-20 15:59 | CT ---
CT GUIDED RENAL BIOPSY: 12/20/17 HISTORY: Renal failure. FINDINGS: After explaining the procedure and answering all questions, marker was placed across each flank. A le ft posterior approach was planned. Sterile technique and buffered local anesthesia, CT guidance, and a left posterior approach were used to carefully advance a 17 gauge trocar needle in the lateral dunia ex of the kidney at the avascular zone junction of the superior two thirds and lower one third. Posit ion was confirmed with CT. A total of two 18 gauge core biopsy specimens were obtained and submitted to pathology. Specimen adequacy was confirmed. Needle was removed. Postprocedure imaging shows no benjy dence of complication. Patient tolerated the procedure well and was returned in unchanged condition. IMPRESSION: Technically successful CT guided random renal biopsy. Pathology is pending. POS: ANDREY
[2017-12-20] MEDS: Atorvastatin Calcium 40 MG TAB PO SCH (20:42)
[2017-12-20] MEDS: ALPRAZolam 0.5 MG TAB PO PRN (20:42)
--- NOTE | 2017-12-21 04:54 | PRG ---
DATE OF SERVICE: 12/20/2017 SUBJECTIVE: This is an 82-year-old female with acute anemia, kidney failure, etc. The pat jaya had been seen by Nephrology and underwent kidney biopsy today. The patient's stool guaiac came back negative. The patient also denied history of any hematochezia or any melena. The feeling is th at the patient mostly has anemia from chronic kidney disease. The patient is somewhat emotional and she says she is sick and tired of going through all these tests and there is no end to it. She saw s omewhat emotional. She denied abdominal pain, chest pain, nausea, or vomiting. PHYSICAL EXAMINATION: VITAL SIGNS: Afebrile, pulse rate 63, blood pressure 128/60. CARDIOVASCULAR SYSTEM: First and second heart sounds normal. LUNGS: Clear to auscultation. ABDOMEN: Soft to palpate. Abdomen is nontender. LABORATORY DATA: From today, WBC is 14,300, hemoglobin 7.4, hematocrit 22.7, MCV 90.6. The stool fo r occult blood came back negative. RECOMMENDATIONS: 1. Symptomatic treatment. 2. Transfuse as needed. 3. As the stool guaiac is negative and she has no history of any GI bleeding, we will defer any GI w orkup at the present time.
[2017-12-21 05:37] LABS: #Eosinphils 0.2 thou/uL (0.0-0.7); #Lymphocytes 1.5 thou/uL (1.20-3.40); #Monocytes 0.6 thou/uL (0.11-0.59); #Neutrophils 11.7 thou/uL (1.40-6.50); %Basophils 0.1 % (0.0-1.0); %Eosinophils 1.5 % (0.0-10.0); %Lymphocytes 10.4 % (21.0-51.0); %Neutrophils 83.9 % (42.0-75.0); Hemoglobin 8.1 g/dL (12.0-16.0); Mean Corpuscular HGB CONC 32.6 g/dL (32.0-36.0); Mean Corpuscular Hemoglobin 29.6 pg (27.0-31.0); Mean Platelet Volume 6.4 fL (7.4-10.4); Platelet Count 326 thou/uL (130-400); RBC Distribution Width 13.4 % (11.5-14.5); Red Blood Cell (RBC) Count 2.73 mill/uL (4.20-5.40); White Blood Cell (WBC) Count 13.9 thou/uL (4.8-10.8)
[2017-12-21 05:50] LABS: Anion Gap 19 mmol/L (10-20); BUN (Urea Nitrogen) 103 mg/dL (9.8-20.1); Calc. Creatinine Clearance 7 mL/min (70-130); Calcium 8.4 mg/dL (7.8-10.44); Carbon Dioxide 18 mmol/L (23-31); Chloride 102 mmol/L (98-107); Estimated GFR-MDRD 6; Glucose 89 mg/dL (83-110); Potassium 4.2 mmol/L (3.5-5.1); Sodium 135 mmol/L (136-145)
--- NOTE | 2017-12-21 07:49 | PRG ---
DATE OF SERVICE: 12/21/2017 SUBJECTIVE: The patient is sleeping, appears comfortable. PHYSICAL EXAMINATION: VITAL SIGNS: Stable, afebrile. Urine output 800 mL of clear. ABDOMEN: Soft, nontender, nondistended. LABORATORY DATA: White blood cell count 13, hemoglobin stable at 8.1, platelet 326, BUN 103, creatinine 6.99. No significant change since admission of renal function. IMPRESSION AND PLAN: 1. Ms. Ramos is an 82-year-old female with history of diabetes, hypertension, congestive heart failure, admitted for acute renal failure consistent with medical renal disease. 2. Previous renal ultrasound demonstrated left hydro, however, CT demonstrates no evidence of hydronephrosis bilaterally. Microscopic hematuria culture negative., Microhematuria likely catheter related. 3. History of hesitancy with PVR of 400 mL. Currently has an indwelling Evans catheter. Possibility that initial hydro may be due to urinary retention; however, usually PVR is much greater than 400 resulting in hydro, moreover, CT demonstrates no hydronephrosis. Continue indwelling Evans catheter for now for strict I's and O's. Medical workup in progress. Status post renal biopsy which she appears to have tolerated well. I will continue to follow p.r.n. When dispo finalized, I will initiate voiding trial and monitor for post-void residual. [facility] covering me this weekend for p.r.n. issues. CLAUDY
[2017-12-21] MEDS: Carvedilol 6.25 MG TAB PO SCH ×2 (09:28→16:04)
[2017-12-21] MEDS: Docusate 100 MG CAP PO SCH ×2 (09:29→20:20)
[2017-12-21] MEDS: Pantoprazole 40 MG VIAL IVP SCH ×2 (09:29→20:15)
[2017-12-21] MEDS: Folic Acid 1 MG TAB PO SCH (09:29)
[2017-12-21] MEDS: Amlodipine 5 MG TAB PO SCH (09:29)
--- NOTE | 2017-12-21 13:25 | PDOC.PN ---
- Subjective Encounter Start Date: 12/21/17 Encounter Start Time: 10:00 - Objective Resuscitation Status: Resuscitation Status FULL:Full Resuscitation MAR Reviewed: Yes Vital Signs & Weight: Vital Signs (12 hours) Temp Pulse Resp BP Pulse Ox 12/21/17 12:32 97.8 F 65 20 121/64 92 L 12/21/17 09:29 65 12/21/17 07:58 97.8 F 64 18 134/65 94 L 12/21/17 04:00 98.2 F 63 20 127/62 91 L Weight Weight 154 lb 1.6 oz I&O: 12/20/17 12/21/17 12/22/17 06:59 06:59 06:59 Intake Total 1678 825 Output Total 800 675 Balance 878 150 Result Diagrams: 12/21/17 04:26 12/21/17 04:26 Additional Labs: Accuchecks 12/21/17 12/21/17 12/20/17 10:50 05:59 20:53 POC Glucose 131 H 121 H 138 H 12/20/17 16:35 POC Glucose 164 H Phys Exam - Physical Examination Constitutional: NAD HEENT: oral pharynx no lesions [place] Neck: no JVD, supple Respiratory: no wheezing, no rales, no rhonchi, clear to auscultation bilateral Cardiovascular: RRR M AT RUSB AND LLSB. Gastrointestinal: soft, non-tender, no distention Musculoskeletal: no edema Neurological: non-focal DIFFICULT TO ASSESS, BUT APPEARS TO HAVE BIT OF DEMENTIA. Psychiatric: normal affect Skin: no rash, normal turgor Dx/Plan (1) Acute renal failure Status: Acute Qualifiers: Acute renal failure type: unspecified Qualified Code(s): N17.9 - Acute kidney failure, unspecified Plan: WORK UP IN [facility]. NEPHROLOGY FOLLOWING. WORSENING DAILY. NO SPECIFIC INDICATION FOR HD, BUT HER POTASSIUM IS INCREASING AND THE CO2 IS DECREASING. MAY GET THERE SOON. CM HAS TALKED WITH PATIENT'S SON. HD WILL BE EXTREMELY DIFFICULT FOR THEM TO DO (HE HAS SOME DISABILITY WELL). THE PATIENT JUST SAYS "NOT GOOD" WHEN HD IS EXPLAINED TO HER BY ME. (2) Anemia Code(s): D64.9 - ANEMIA, UNSPECIFIED Status: Acute Qualifiers: Anemia type: unspecified type Qualified Code(s): D64.9 - Anemia, unspecified Plan: STABLE. (3) Heart failure Code(s): I50.9 - HEART FAILURE, UNSPECIFIED Status: Ruled-out Qualifiers: Heart failure type: unspecified (4) Hypertensive urgency Code(s): I16.0 - HYPERTENSIVE URGENCY Status: Resolved (5) Diabetes Code(s): E11.9 - TYPE 2 DIABETES MELLITUS WITHOUT COMPLICATIONS Status: Chronic Qualifiers: Diabetes mellitus type: type 2 Diabetes mellitus residential insulin use: without residential use Plan: BLOOD SUGARS ARE WELL CONTROLLED. (6) Hearing loss Code(s): H91.90 - UNSPECIFIED HEARING LOSS, UNSPECIFIED EAR Status: Chronic - Plan * ABOVE.
[2017-12-21 15:25] LABS: IgA - Total IgA (Sendout) 173 mg/dL (64-422); Immunoglobulin - G (Sendout) 1362 mg/dL (700-1600); Immunoglobulin - M (Sendout) 86 mg/dL (26-217)
--- NOTE | 2017-12-21 19:30 | PRG ---
DATE OF SERVICE: 12/21/2017 SUBJECTIVE: Patient was seen and examined at bedside and overnight events noted. Patient denies any shortness of breath or chest pain or palpitation. No history of nausea or vomiting or diarrhea or fever or chills or cramps. OBJECTIVE: GENERAL: This is a well-built female, in no apparent distress. VITAL SIGNS: Temperature 98.1, pulse 64, respiratory rate 16, blood pressure 121/64. HEENT: Atraumatic, normocephalic. Oral mucosa is moist. NECK: Supple CARDIOVASCULAR: S1S2 heard, Rate and rhythm regular. RESPIRATORY: Clear to auscultation. GASTROINTESTINAL: Abdomen is soft. MUSCULOSKELETAL: No tenderness. No edema. DERMATOLOGIC: No skin rash. NEUROLOGIC: Alert and awake and oriented x3. No focal neurologic deficits. Moving all the extremit ies. PSYCHIATRIC: Mood and affect normal. LABORATORY DATA: Potassium is 4.2, BUN 103, creatinine 6.9. ASSESSMENT AND PLAN: 1. 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 Renal biopsy suggestive of that. ANCA is pendi ng. Anti-GBM is negative, so plan is to start her on IV steroids x3. The patient might benefit from plasmapheresis too given her severe active renal disease. We are waiting for biopsy results to see if she needs to be transferred and also talk with the family. No anti-GBM or no signs of any pulmona ry hemorrhage. 2. Hyponatremia, metabolic acidosis and severe aortic stenosis. 3. Anemia. 4. Leukocytosis, stable. 5. ANCA vasculitis. Plan is to start IV steroids for 3 days, 1 gram of Solu-Medrol for 3 days and then start on oral ster oids. The patient will benefit from Rituxan too and need Rheumatology followup. I will follow. No acute indication for dialysis. Might need renal replacement therapy in the next few days.
[2017-12-21] MEDS: methylPREDNISolone Sod Succ 1 GM in Sodium Chloride 0.9% 100 ML IVPB SCH (20:16)
[2017-12-21] MEDS: Atorvastatin Calcium 40 MG TAB PO SCH (20:21)
[2017-12-21] MEDS ORDERED: methylPREDNISolone Sod Succ/PF 125 MG/2 ML VIAL IVP SCH (21:00)
[2017-12-22] MEDS: methylPREDNISolone Sod Succ 1 GM in Sodium Chloride 0.9% 100 ML IVPB SCH (00:56)
[2017-12-22 05:27] LABS: #Eosinphils 0.4 thou/uL (0.0-0.7); #Lymphocytes 1.8 thou/uL (1.20-3.40); #Monocytes 0.5 thou/uL (0.11-0.59); #Neutrophils 11.2 thou/uL (1.40-6.50); %Eosinophils 2.7 % (0.0-10.0); %Monocytes 3.6 % (0.0-10.0); %Neutrophils 80.7 % (42.0-75.0); Hemoglobin 7.3 g/dL (12.0-16.0); Mean Corpuscular HGB CONC 33.6 g/dL (32.0-36.0); Mean Corpuscular Hemoglobin 30.1 pg (27.0-31.0); Mean Corpuscular Volume 89.6 fl (81.0-99.0); Mean Platelet Volume 6.2 fL (7.4-10.4); Platelet Count 360 thou/uL (130-400); RBC Distribution Width 13.7 % (11.5-14.5); Red Blood Cell (RBC) Count 2.42 mill/uL (4.20-5.40); White Blood Cell (WBC) Count 13.9 thou/uL (4.8-10.8)
[2017-12-22 05:37] LABS: Anion Gap 18 mmol/L (10-20); BUN (Urea Nitrogen) 108 mg/dL (9.8-20.1); Calc. Creatinine Clearance 7 mL/min (70-130); Calcium 8.4 mg/dL (7.8-10.44); Carbon Dioxide 21 mmol/L (23-31); Chloride 101 mmol/L (98-107); Estimated GFR-MDRD 5; Glucose 94 mg/dL (83-110); Potassium 3.3 mmol/L (3.5-5.1); Sodium 137 mmol/L (136-145)
[2017-12-22] MEDS ORDERED: methylPREDNISolone Sod Succ 1 GM in Sodium Chloride 0.9% 100 ML IVPB SCH (09:00)
[2017-12-22] MEDS ORDERED: methylPREDNISolone Sod Succ/PF 125 MG/2 ML VIAL IVP SCH (09:00)
[2017-12-22] MEDS: Carvedilol 6.25 MG TAB PO SCH ×2 (09:01→17:42)
[2017-12-22] MEDS: Amlodipine 5 MG TAB PO SCH (09:01)
[2017-12-22] MEDS: Docusate 100 MG CAP PO SCH ×2 (09:01→23:03)
[2017-12-22] MEDS: Folic Acid 1 MG TAB PO SCH (09:01)
--- NOTE | 2017-12-22 09:14 | PDOC.PN ---
- Subjective Encounter Start Date: 12/22/17 Encounter Start Time: 09:11 HAD A LITTLE SOB LAST NIGHT, BUT SHE CAN'T REMEMBER DETAILS. FEELS FINE NOW. - Objective Resuscitation Status: Resuscitation Status FULL:Full Resuscitation MAR Reviewed: Yes Vital Signs & Weight: Vital Signs (12 hours) Temp Pulse Resp BP BP BP Pulse Ox 12/22/17 09:01 67 127/59 L 12/22/17 04:00 97.7 F 60 12 124/60 92 L 12/22/17 00:53 92 L 12/21/17 23:42 97.7 F 65 12 106/52 L 92 L Weight Weight 158 lb I&O: 12/21/17 12/22/17 12/23/17 06:59 06:59 06:59 Intake Total 825 760 Output Total 675 585 Balance 150 175 Result Diagrams: 12/22/17 04:49 12/22/17 04:49 Additional Labs: Accuchecks 12/22/17 12/21/17 12/21/17 05:48 21:04 10:50 POC Glucose 101 168 H 131 H Phys Exam - Physical Examination Constitutional: NAD Neck: no JVD, supple Respiratory: no wheezing, no rales, no rhonchi, clear to auscultation bilateral Cardiovascular: RRR MURMUR LLSB,APEX Gastrointestinal: soft, non-tender, no distention, positive bowel sounds Musculoskeletal: no edema Neurological: non-focal Psychiatric: normal affect Skin: no rash, normal turgor Dx/Plan (1) Acute renal failure Status: Acute Qualifiers: Acute renal failure type: unspecified Qualified Code(s): N17.9 - Acute kidney failure, unspecified Plan: NEPHROLOGY FOLLOWING. SUSPECT ANCA NEPHROPATHY BASED ON BX. ATTEMPTING TO INITIATE STEROIDS, BUT IV LOST. SURGERY TO PLACE CATHETER. MAY NEED HD SOON. STILL NO IMMEDIATE INDICATION. (2) Anemia Code(s): D64.9 - ANEMIA, UNSPECIFIED Status: Acute Qualifiers: Anemia type: unspecified type Qualified Code(s): D64.9 - Anemia, unspecified Plan: APPEARS TO BE DUE TO CHRONIC DISEASE. NO EVIDENCE OF GI BLEED. (3) Diabetes Code(s): E11.9 - TYPE 2 DIABETES MELLITUS WITHOUT COMPLICATIONS Status: Chronic Qualifiers: Diabetes mellitus type: type 2 Diabetes mellitus correction insulin use: without tank terminal gauger use Plan: WELL CONTROLLED. NO CHANGE. (4) Hearing loss Code(s): H91.90 - UNSPECIFIED HEARING LOSS, UNSPECIFIED EAR Status: Chronic - Plan * PATIENT HAD PROPHYLACTIC ANTICOAGULATION INITIALLY HELD FOR FEAR OF A GI BLEED. THEN SHE HAD THE RENAL BIOPSY AND NOW NEEDS A CATHETER. WILL START HEPARIN THIS PM.
[2017-12-22] MEDS ORDERED: Lidocaine 1% (PF) 30 ML VIAL FS SCH (09:45)
[2017-12-22 11:46] LABS: HBSAB Concentration 0.73 mIU/mL; HBSAg Index 0.18 S/CO (0-0.99); Hep B Core Total Ab Non-Reactive (NonReactive); Hep B Core Total Index 0.15 S/CO (0-0.79); Hep B Surf AB Non-Reactive (NonReactive); Hep B Surf Ag Non-Reactive S/CO (NonReactive); Hep C IgG Ab Non-Reactive (NonReactive); Hep C Index 0.08 S/CO (0-0.79)
[2017-12-22] MEDS: Heparin 5,000 UNITS/ML VIAL SC SCH ×2 (12:03→23:03)
[2017-12-22] MEDS: Pantoprazole 40 MG VIAL IVP SCH ×2 (12:03→23:03)
[2017-12-22] MEDS: methylPREDNISolone Sod Succ 1 GM in Sodium Chloride 0.9% 250 ML 250 ML IVPB SCH (12:09)
--- NOTE | 2017-12-22 13:25 | OP ---
DATE OF PROCEDURE: 12/22/2017 PREOPERATIVE DIAGNOSIS: Acute respiratory failure. POSTOPERATIVE DIAGNOSIS: Acute respiratory failure. PROCEDURE PERFORMED: Placement of right femoral vein Trialysis catheter. INDICATIONS FOR PROCEDURE: An 82-year-old woman is admitted with acute renal failure. I have been a sked to place a temporary dialysis access to facilitate therapeutic interventions. DESCRIPTION OF PROCEDURE: Informed consent obtained from patient and was placed in supine position. The right groin was sterilely prepped and draped in usual fashion. The skin over the right femoral artery was anesthetized with 1% lidocaine. The right femoral vein was then cannulated medial to the palpated right femoral artery. This was achieved using an 18-gauge introducer needle returning dark venous blood. Guidewire was passed through the needle and advanced into the right femoral vein witho ut resistance. Needle was withdrawn over the guidewire. A stab incision is made adjacent to the margo dewire using an 11 scalpel. A dilator was passed over the guidewire dilating subcutaneous tissues. Dilator was removed and exchanged for a triple-lumen Trialysis catheter which was advanced over the g uidewire and placed in the right femoral vein without resistance. The guidewire was removed. Dark v enous blood was fully aspirated from all 3 ports which were then individually flushed first with sali ne and then charged with heparin. Catheter secured to right groin using 3-0 nylon suture at 2 points . Sterile dressings were applied. The patient tolerated procedure without any apparent complication , remained hemodynamically stable following completion of the procedure. There is no subcutaneous he matoma noted.
[2017-12-22] MEDS: Tuberculin PPD 0.1 ML VIAL I-DERMAL SCH (14:18)
[2017-12-22] MEDS ORDERED: Epoetin (ESRD) 20,000 UNITS/ML SC SCH (17:00)
--- NOTE | 2017-12-22 21:28 | PRG ---
DATE OF SERVICE: 12/22/2017 SUBJECTIVE: Patient was seen and examined at bedside and overnight events noted. Patient denies any shortness of breath or chest pain or palpitation. No history of nausea or vomiting or diarrhea or f ever or chills or cramps. OBJECTIVE: GENERAL: This is a well-built female in no apparent distress. VITAL SIGNS: Temperature 98.2, pulse 67, respiratory rate 12, blood pressure 148/64. HEENT: Atraumatic, normocephalic. Oral mucosa is moist. NECK: Supple. CARDIOVASCULAR: S1, S2 heard. Rate and rhythm regular. RESPIRATORY: Clear to auscultation. GASTROINTESTINAL: Abdomen is soft. MUSCULOSKELETAL: No tenderness. No edema. DERMATOLOGIC: No skin rash. NEUROLOGIC: Alert and awake and oriented x3. No focal neurologic deficits. Moving all the extremiti es. PSYCHIATRIC: Mood and affect normal. LABORATORY DATA: Potassium is 3.3, BUN is 108, creatinine 7.3. ASSESSMENT AND PLAN: 1. 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 Plan is to start on steroids and Rituxan. 2. available early on Sunday. We will check PPD and hepatitis panel before Rituxan. 3. Hyponatremia. 4. Leukocytosis ANCA vasculitis. 5. We will start on steroids and Rituxan for ANCA vasculitis. Renal function getting worse. Patien t will be started on renal replacement therapy and we will talk with the family if they want to pursu e plasma exchange for which they may have to transfer her to a tertiary care center. We will follow. Hepatitis was also negative so far.
[2017-12-22] MEDS: Atorvastatin Calcium 40 MG TAB PO SCH (23:03)
[2017-12-23 05:39] LABS: #Eosinphils 0.1 thou/uL (0.0-0.7); #Lymphocytes 1.2 thou/uL (1.20-3.40); #Monocytes 0.1 thou/uL (0.11-0.59); #Neutrophils 9.4 thou/uL (1.40-6.50); %Eosinophils 0.5 % (0.0-10.0); %Lymphocytes 10.9 % (21.0-51.0); %Monocytes 0.6 % (0.0-10.0); Hemoglobin 7.2 g/dL (12.0-16.0); Mean Corpuscular HGB CONC 33.9 g/dL (32.0-36.0); Mean Corpuscular Hemoglobin 30.6 pg (27.0-31.0); Mean Corpuscular Volume 90.3 fl (81.0-99.0); Mean Platelet Volume 6.7 fL (7.4-10.4); Platelet Count 354 thou/uL (130-400); RBC Distribution Width 14.2 % (11.5-14.5); Red Blood Cell (RBC) Count 2.35 mill/uL (4.20-5.40); White Blood Cell (WBC) Count 10.7 thou/uL (4.8-10.8)
[2017-12-23 05:54] LABS: Anion Gap 19 mmol/L (10-20); BUN (Urea Nitrogen) 75 mg/dL (9.8-20.1); Calc. Creatinine Clearance 9 mL/min (70-130); Calcium 8.4 mg/dL (7.8-10.44); Carbon Dioxide 22 mmol/L (23-31); Chloride 101 mmol/L (98-107); Estimated GFR-MDRD 8; Glucose 140 mg/dL (83-110); Potassium 3.7 mmol/L (3.5-5.1); Sodium 138 mmol/L (136-145)
[2017-12-23] MEDS: Carvedilol 6.25 MG TAB PO SCH ×2 (09:21→16:35)
[2017-12-23] MEDS: Amlodipine 5 MG TAB PO SCH (09:21)
[2017-12-23] MEDS: Heparin 5,000 UNITS/ML VIAL SC SCH ×2 (09:22→20:27)
[2017-12-23] MEDS: Docusate 100 MG CAP PO SCH ×2 (09:22→20:27)
[2017-12-23] MEDS: Folic Acid 1 MG TAB PO SCH (09:22)
[2017-12-23] MEDS: Pantoprazole 40 MG VIAL IVP SCH (09:22)
[2017-12-23] MEDS: methylPREDNISolone Sod Succ 1 GM in Sodium Chloride 0.9% 250 ML 250 ML IVPB SCH (12:51)
[2017-12-23] MEDS: Tuberculin PPD 0.1 ML VIAL I-DERMAL SCH (12:55)
--- NOTE | 2017-12-23 13:50 | PRG ---
DATE OF SERVICE: 12/23/2017 SUBJECTIVE: Patient was seen and examined at bedside and overnight events noted. Patient denies any shortness of breath or chest pain or palpitation. No history of nausea or vomiting or diarrhea or f ever or chills or cramps. OBJECTIVE: GENERAL: Well-built female in no apparent distress. VITAL SIGNS: Temperature 98.7, pulse 70, respiratory rate 18, blood pressure 141/63. HEENT: Atraumatic, normocephalic. Oral mucosa is moist. NECK: Supple. CARDIOVASCULAR: S1, S2 heard. Rate and rhythm regular. RESPIRATORY: Clear to auscultation. GASTROINTESTINAL: Abdomen is soft. MUSCULOSKELETAL: No tenderness. No edema. DERMATOLOGIC: No skin rash. NEUROLOGIC: Alert and awake and oriented x3. No focal neurologic deficits. Moving all the extremit ies. PSYCHIATRIC: Mood and affect normal. LABORATORY DATA: Potassium is 3.7, BUN is 75, and creatinine is 5.2. ASSESSMENT AND PLAN: 1. Acute kidney injury on end-stage renal disease, started on hemodialysis. Patient has less chance of recovery. 2. ANCA vasculitis. Plan is to have IV steroids for Solu-Medrol 1 gram IV for 3 days and then start on oral prednisone 1 mg/kg per day and then we will also give Rituxan if PPD is negative. 3. Leukocytosis. 4. Edema, remove fluid with dialysis. 5. Hyponatremia. 6. Prognosis guarded. We will plan for therapy for ANCA. We will continue her on dialysis.
--- NOTE | 2017-12-23 15:18 | PDOC.PN ---
- Subjective Encounter Start Date: 12/23/17 Encounter Start Time: 12:00 Patient seen today, She is toltally confused. Disoriented. Alert. 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 - Objective Resuscitation Status: Resuscitation Status FULL:Full Resuscitation MAR Reviewed: Yes Vital Signs & Weight: Vital Signs (12 hours) Temp Pulse Resp BP BP BP Pulse Ox 12/23/17 12:49 97.7 F 70 20 141/63 H 93 L 12/23/17 07:44 98.1 F 70 18 116/58 L 97 12/23/17 03:49 20 96 12/23/17 03:41 96 12/23/17 03:27 97.7 F 71 20 123/73 88 L Weight Weight 153 lb 11.2 oz I&O: 12/22/17 12/23/17 12/24/17 06:59 06:59 06:59 Intake Total 760 930 Output Total 585 2025 Balance 175 -1095 Result Diagrams: 12/23/17 04:57 12/23/17 04:57 Additional Labs: Accuchecks 12/23/17 12/22/17 12/22/17 05:44 21:55 16:53 POC Glucose 150 H 159 H 167 H Radiology Reviewed by me: Yes Phys Exam - Physical Examination HEENT: PERRLA, moist MMs Neck: no nodes, no JVD Respiratory: no wheezing, no rales Cardiovascular: RRR, no significant murmur Gastrointestinal: soft, non-tender, no distention Musculoskeletal: no edema, pulses present Neurological: non-focal, normal sensation Lymphatic: no nodes Dx/Plan (1) Acute encephalopathy Code(s): G93.40 - ENCEPHALOPATHY, UNSPECIFIED Status: Acute Comment: Liekly from Steroids psychosis or metabolic from Renal dysfucntion. [facility]. (2) Acute renal failure Status: Acute Qualifiers: Acute renal failure type: unspecified Qualified Code(s): N17.9 - Acute kidney failure, unspecified Comment: PT has ANCA Antibodies on Renal biospy, on IV Methyprednisolen for 3 doses. Renal following, may end up needing HD. (3) Anemia Code(s): D64.9 - ANEMIA, UNSPECIFIED Status: Acute Qualifiers: Anemia type: unspecified type Qualified Code(s): D64.9 - Anemia, unspecified Comment: Likely from CKD. (4) Diabetes Code(s): E11.9 - TYPE 2 DIABETES MELLITUS WITHOUT COMPLICATIONS Status: Chronic Qualifiers: Diabetes mellitus type: type 2 Diabetes mellitus mcfp insulin use: without long wall shear operator use Comment: Worseing Due to Steroids. Will do SSI to keep BG 140-180 (5) Hearing loss Code(s): H91.90 - UNSPECIFIED HEARING LOSS, UNSPECIFIED EAR Status: Chronic (6) Hypertensive urgency Code(s): I16.0 - HYPERTENSIVE URGENCY Status: Resolved (7) Heart failure Code(s): I50.9 - HEART FAILURE, UNSPECIFIED Status: Ruled-out Qualifiers: Heart failure type: unspecified - Plan cont current plan of care, continue antibiotics, PT/OT, social work manager, incentive spirometry, DVT proph w/heparin, DVT proph w/SCDs * . Review of Systems - Review of Systems Other: Completely Altered No family member at bedside. - Medications/Allergies Allergies/Adverse Reactions: Allergies Allergy/AdvReac Type Severity Reaction Status Date / Time codeine Allergy Swollen Verified 12/17/17 22:50 Lips Medications: Current Medications Acetaminophen (Tylenol) 650 mg PO Q4H PRN PRN Reason: Headache/Fever or Pain Alprazolam (Xanax) 0.5 mg PO BIDPRN PRN PRN Reason: Anxiety Last Admin: 12/20/17 20:42 Dose: 0.5 mg Amlodipine Besylate (Norvasc) 5 mg PO DAILY [facility] Last Admin: 12/23/17 09:21 Dose: 5 mg Atorvastatin Calcium (Lipitor) 80 mg PO [facility] Last Admin: 12/22/17 23:03 Dose: 80 mg Bisacodyl (Dulcolax) 10 mg [place] DAILYPRN PRN PRN Reason: Constipation Carvedilol (Coreg) 6.25 mg PO BID-[facility] Last Admin: 12/23/17 09:21 Dose: 6.25 mg Cholecalciferol (Vitamin D3) 2,000 units PO [facility] Last Admin: 12/22/17 23:03 Dose: 2,000 units Dextrose/Water (Dextrose 50%) 25 gm SLOW IVP PRN PRN PRN Reason: Hypoglycemia Docusate Sodium (Colace) 100 mg PO BID [facility] Last Admin: 12/23/17 09:22 Dose: 100 mg Epoetin Chai (Procrit) 10,000 units SC Q7D [facility] Last Admin: 12/19/17 10:14 Dose: 10,000 units Folic Acid (Folvite) 1 mg PO DAILY [facility] Last Admin: 12/23/17 09:22 Dose: 1 mg Glucagon (Glucagon) 1 mg IM PRN PRN PRN Reason: Hypoglycemia Guaifenesin/Dextromethorphan (Robitussin Dm) 15 ml PO Q4H PRN PRN Reason: Cough Last Admin: 12/19/17 04:52 Dose: 15 ml Heparin Sodium (Porcine) (Heparin) 5,000 units SC BID [facility] Last Admin: 12/23/17 09:22 Dose: 5,000 units Dextrose/Water (D5w) 1,000 mls @ 0 mls/hr IV .Q0M PRN; As Directed PRN Reason: Hypoglycemia Methylprednisolone Sodium Succinate 1 gm/ Sodium Chloride 266 mls @ 266 mls/hr IVPB Q24HR@0900 [facility] Stop: 12/24/17 09:59 Last Admin: 12/23/17 12:51 Dose: 266 mls Insulin Human Lispro (Humalog) 0 units SC .MODERATE SLIDING SC PRN PRN Reason: Moderate Correctional Scale Insulin Human Lispro (Humalog) 0 units SC .BEDTIME SLIDING SC PRN PRN Reason: Bedtime Correctional Scale Pantoprazole Sodium (Protonix) 40 mg PO BID [facility] Prednisone (Prednisone) 60 mg PO QAM-WM [facility] Sodium Chloride (Flush - Normal Saline) 10 ml IVF PRN PRN PRN Reason: Saline Flush Last Admin: 12/22/17 23:04 Dose: 10 ml Sodium Chloride (Flush - Normal Saline) 10 ml IV Q12HR [facility] Tuberculin PPD (Aplisol) 0.1 ml I-DERMAL NOW [facility] Stop: 12/25/17 14:00 Last Admin: 12/23/17 12:55 Dose: Not Given
[2017-12-23] MEDS: Atorvastatin Calcium 40 MG TAB PO SCH (20:26)
[2017-12-23] MEDS: HumaLOG 300 UNITS/3 ML VIAL SC PRN (20:40)
[2017-12-24 05:42] LABS: #Lymphocytes 1.2 thou/uL (1.20-3.40); #Monocytes 0.4 thou/uL (0.11-0.59); #Neutrophils 7.9 thou/uL (1.40-6.50); %Basophils 0.2 % (0.0-1.0); %Eosinophils 0.5 % (0.0-10.0); %Monocytes 4.2 % (0.0-10.0); %Neutrophils 82.1 % (42.0-75.0); Hemoglobin 7.1 g/dL (12.0-16.0); Mean Corpuscular HGB CONC 33.7 g/dL (32.0-36.0); Mean Corpuscular Hemoglobin 30.3 pg (27.0-31.0); Mean Corpuscular Volume 89.8 fl (81.0-99.0); Mean Platelet Volume 6.4 fL (7.4-10.4); Platelet Count 414 thou/uL (130-400); RBC Distribution Width 14.3 % (11.5-14.5); Red Blood Cell (RBC) Count 2.34 mill/uL (4.20-5.40); White Blood Cell (WBC) Count 9.6 thou/uL (4.8-10.8)
[2017-12-24 06:20] LABS: Anion Gap 16 mmol/L (10-20); BUN (Urea Nitrogen) 63 mg/dL (9.8-20.1); Calc. Creatinine Clearance 11 mL/min (70-130); Calcium 8.4 mg/dL (7.8-10.44); Carbon Dioxide 26 mmol/L (23-31); Chloride 99 mmol/L (98-107); Estimated GFR-MDRD 10; Glucose 187 mg/dL (83-110); Potassium 3.9 mmol/L (3.5-5.1); Sodium 137 mmol/L (136-145)
--- NOTE | 2017-12-24 07:53 | PRG ---
DATE OF SERVICE: 12/24/2017 SUBJECTIVE: The patient is resting comfortably. PHYSICAL EXAMINATION: VITAL SIGNS: Stable, afebrile. The patient has been hemodialysis twice over the weekend, oliguric 75 mL over 24 hours. ABDOMEN: Soft, nontender, nondistended. : Evasn catheter, clear. IMPRESSION AND PLAN: 1. An 82-year-old female with history of acute renal failure, end-stage medical renal disease on hemodialysis. 2. ANCA vasculitis. 3. Microscopic hematuria, catheter related. 4. History of PVR 400 mL, currently oliguric due to dialysis. will discontinue Evans catheter. The nursing staff may scan her bladder every 8 hours, expect minimal as the patient is currently on hemodialysis. If the patient has postvoid residual greater than 300 mL, may CIC. will follow peripherally. Prognosis guarded. MTDD
[2017-12-24] MEDS: Carvedilol 6.25 MG TAB PO SCH ×2 (08:58→16:19)
[2017-12-24] MEDS: Ferrous Sulfate 325 MG TAB PO SCH (08:58)
[2017-12-24] MEDS: Amlodipine 5 MG TAB PO SCH (08:58)
[2017-12-24] MEDS: Docusate 100 MG CAP PO SCH ×2 (08:59→21:10)
[2017-12-24] MEDS: Folic Acid 1 MG TAB PO SCH (08:59)
[2017-12-24] MEDS: Folic Acid/Vit B Comp W-C PO SCH (08:59)
[2017-12-24] MEDS: methylPREDNISolone Sod Succ 1 GM in Sodium Chloride 0.9% 250 ML 250 ML IVPB SCH (09:00)
[2017-12-24] MEDS: Heparin 5,000 UNITS/ML VIAL SC SCH ×2 (09:00→21:10)
--- NOTE | 2017-12-24 11:25 | PDOC.PN ---
- Subjective Encounter Start Date: 12/24/17 Encounter Start Time: 07:10 -: old records requested/rev Patient seen and examined for acute kidney failure, pt is hard of hearing. No new complaints. No overnight events - Objective Resuscitation Status: Resuscitation Status FULL:Full Resuscitation MAR Reviewed: Yes Vital Signs & Weight: Vital Signs (12 hours) Temp Pulse Resp BP BP Pulse Ox 12/24/17 09:47 95 12/24/17 07:30 98 F 70 20 129/61 95 12/24/17 04:10 91 L 12/24/17 04:01 98 F 74 20 135/58 L 91 L 12/24/17 02:38 95 12/24/17 00:09 97.1 F L 83 16 113/53 L 95 Weight Weight 153 lb 3.2 oz I&O: 12/23/17 12/24/17 12/25/17 06:59 06:59 06:59 Intake Total 930 730 Output Total 2025 75 50 Balance -1095 655 -50 Result Diagrams: 12/24/17 04:54 12/24/17 04:54 Additional Labs: Accuchecks 12/24/17 12/24/17 12/23/17 10:54 05:23 23:50 POC Glucose 191 H 198 H 223 H 12/23/17 12/23/17 20:32 16:56 POC Glucose 310 H 171 H EKG Reviewed by me: Yes (nsr) Phys Exam - Physical Examination Constitutional: NAD HEENT: PERRLA, moist MMs, sclera anicteric Neck: no JVD, supple Respiratory: no wheezing, no rales, no rhonchi Cardiovascular: RRR, no significant murmur, no rub Gastrointestinal: soft, non-tender, no distention, positive bowel sounds Musculoskeletal: no edema, pulses present Neurological: non-focal, normal sensation Lymphatic: no nodes Psychiatric: normal affect Skin: no rash, normal turgor Dx/Plan (1) Acute metabolic encephalopathy Code(s): G93.41 - METABOLIC ENCEPHALOPATHY Status: Acute (2) Acute renal failure Status: Acute Qualifiers: Acute renal failure type: unspecified Qualified Code(s): N17.9 - Acute kidney failure, unspecified Comment: (3) Anemia of renal disease Code(s): D63.1 - ANEMIA IN CHRONIC KIDNEY DISEASE Status: Acute (4) ESRD needing dialysis Code(s): N18.6 - END STAGE RENAL DISEASE; Z99.2 - DEPENDENCE ON RENAL DIALYSIS Status: Acute (5) Vitamin D deficiency Code(s): E55.9 - VITAMIN D DEFICIENCY, UNSPECIFIED Status: Acute (6) Diabetes type 2, controlled Code(s): E11.9 - TYPE 2 DIABETES MELLITUS WITHOUT COMPLICATIONS Status: Chronic (7) Dyslipidemia Code(s): E78.5 - HYPERLIPIDEMIA, UNSPECIFIED Status: Chronic (8) Hearing loss Code(s): H91.90 - UNSPECIFIED HEARING LOSS, UNSPECIFIED EAR Status: Chronic (9) Hypertension Code(s): I10 - ESSENTIAL (PRIMARY) HYPERTENSION Status: Chronic (10) Moderate aortic stenosis Code(s): I35.0 - NONRHEUMATIC AORTIC (VALVE) STENOSIS Status: Chronic (11) Moderate mitral regurgitation Code(s): I34.0 - NONRHEUMATIC MITRAL (VALVE) INSUFFICIENCY Status: Chronic - Plan cont current plan of care * Nephrology following * follow up on biopsy report * she has no improvement in renal function, seems like she will need HD and will need arrangement for outpt HD * medication reviewed as below * symptomatic treatment. * continue prednisone * add nephrovite and ferrous sulfate * monitor labs Review of Systems - Review of Systems Eyes: negative: Pain, Vision Change, Conjunctivae Inflammation, Eyelid Inflammation, Redness, Other ENT: negative: Ear Pain, Ear Discharge, Nose Pain, Nose Discharge, Nose Congestion, Mouth Pain, Mouth Swelling, Throat Pain, Throat Swelling, Other Respiratory: negative: Cough, Dry, Shortness of Breath, Hemoptysis, SOB with Excertion, Pleuritic Pain, Sputum, Wheezing Cardiovascular: negative: chest pain, palpitations, orthopnea, paroxysmal nocturnal dyspnea, edema, light headedness, other Gastrointestinal: negative: Nausea, Vomiting, Abdominal Pain, Diarrhea, Constipation, Melena, Hematochezia, Other Genitourinary: negative: Dysuria, Frequency, Incontinence, Hematuria, Retention , Other Musculoskeletal: negative: Neck Pain, Shoulder Pain, Arm Pain, Back Pain, Hand Pain, Leg Pain, Foot Pain, Other Skin: negative: Rash, Lesions, Beto, Bruising, Other - Medications/Allergies Allergies/Adverse Reactions: Allergies Allergy/AdvReac Type Severity Reaction Status Date / Time codeine Allergy Swollen Verified 12/17/17 22:50 Lips Medications: Current Medications Acetaminophen (Tylenol) 650 mg PO Q4H PRN PRN Reason: Headache/Fever or Pain Alprazolam (Xanax) 0.5 mg PO BIDPRN PRN PRN Reason: Anxiety Last Admin: 12/20/17 20:42 Dose: 0.5 mg Amlodipine Besylate (Norvasc) 5 mg PO DAILY [facility] Last Admin: 12/24/17 08:58 Dose: 5 mg Atorvastatin Calcium (Lipitor) 80 mg PO [facility] Last Admin: 12/23/17 20:26 Dose: 80 mg Bisacodyl (Dulcolax) 10 mg [place] DAILYPRN PRN PRN Reason: Constipation Carvedilol (Coreg) 6.25 mg PO BID-[facility] Last Admin: 12/24/17 08:58 Dose: 6.25 mg Cholecalciferol (Vitamin D3) 2,000 units PO [facility] Last Admin: 12/23/17 20:27 Dose: 2,000 units Dextrose/Water (Dextrose 50%) 25 gm SLOW IVP PRN PRN PRN Reason: Hypoglycemia Docusate Sodium (Colace) 100 mg PO BID [facility] Last Admin: 12/24/17 08:59 Dose: Not Given Epoetin Chai (Procrit) 10,000 units SC Q7D [facility] Last Admin: 12/19/17 10:14 Dose: 10,000 units Ferrous Sulfate (Feosol) 325 mg PO QAM-[facility] Last Admin: 12/24/17 08:58 Dose: 325 mg Folic Acid (Folvite) 1 mg PO DAILY [facility] Last Admin: 12/24/17 08:59 Dose: 1 mg Glucagon (Glucagon) 1 mg IM PRN PRN PRN Reason: Hypoglycemia Guaifenesin/Dextromethorphan (Robitussin Dm) 15 ml PO Q4H PRN PRN Reason: Cough Last Admin: 12/19/17 04:52 Dose: 15 ml Heparin Sodium (Porcine) (Heparin) 5,000 units SC BID [facility] Last Admin: 12/24/17 09:00 Dose: 5,000 units Dextrose/Water (D5w) 1,000 mls @ 0 mls/hr IV .Q0M PRN; As Directed PRN Reason: Hypoglycemia Rituximab 500 mg/ Rituximab (150 mg/ Sodium Chloride) 565 mls @ 50 mls/hr IVPB WILLCALL [facility] Stop: 12/25/17 09:00 Insulin Human Lispro (Humalog) 0 units SC .MODERATE SLIDING SC PRN PRN Reason: Moderate Correctional Scale Insulin Human Lispro (Humalog) 0 units SC .BEDTIME SLIDING SC PRN PRN Reason: Bedtime Correctional Scale Last Admin: 12/23/17 20:40 Dose: 4 unit Pantoprazole Sodium (Protonix) 40 mg PO BID [facility] Last Admin: 12/24/17 09:00 Dose: 40 mg Prednisone (Prednisone) 60 mg PO QA-[facility] Sodium Chloride (Flush - Normal Saline) 10 ml IVF PRN PRN PRN Reason: Saline Flush Last Admin: 12/22/17 23:04 Dose: 10 ml Sodium Chloride (Flush - Normal Saline) 10 ml IV Q12HR [facility] Last Admin: 12/24/17 09:00 Dose: 10 ml Vitamin B Complex/Vit C/Folic Acid (Nephro-Francisco Tablet) 1 tab PO DAILY [facility] Last Admin: 12/24/17 08:59 Dose: 1 tab
[2017-12-24] MEDS ORDERED: RITUXIMAB IVPB SCH (16:00)
[2017-12-24] MEDS ORDERED: SODIUM CHLORIDE 0.9% IVPB SCH (16:00)
[2017-12-24 17:12] LABS: Cytoplasmic (C-ANCA) 1:40 titer (Neg:<1:20); Myeloperoxidase AutoAbs <9.0 U/mL (0.0-9.0); Perinuclear (P-ANCA) <1:20 titer (Neg:<1:20); Proteinase-3 AutoAbs 62.3 U/mL (0.0-3.5)
[2017-12-24] MEDS: Atorvastatin Calcium 40 MG TAB PO SCH (21:10)
--- NOTE | 2017-12-24 22:17 | PRG ---
DATE OF SERVICE: 12/24/2017 SUBJECTIVE: Patient was seen and examined at bedside and overnight events noted. Patient denies any shortness of breath or chest pain or palpitation. No history of nausea or vomiting or diarrhea or f ever or chills or cramps. OBJECTIVE: GENERAL: This is a well-built female, in no apparent distress. VITAL SIGNS: Temperature 98.0, pulse 77, respiratory rate 18, blood pressure 161/59. HEENT: Atraumatic, normocephalic, oral mucosa is moist. NECK: Supple. CARDIOVASCULAR: S1, S2 heard, rate and rhythm regular. RESPIRATORY: Clear to auscultation. GASTROINTESTINAL: Abdomen is soft. MUSCULOSKELETAL: No tenderness, no edema. DERMATOLOGIC: No skin rash. NEUROLOGIC: Alert and awake and oriented x3. No focal neurologic deficits. Moving all the extremit ies. PSYCHIATRIC: Mood and affect normal. LABORATORY DATA: Potassium is 3.9, BUN is 63, creatinine is 4.0. ASSESSMENT AND PLAN: 1. End-stage renal disease on hemodialysis. Plan is to continue on dialysis as tolerated. 2. ANCA vasculitis. Continue on steroids and Rituxan. 3. Leukocytosis. 4. Edema. 5. Hyponatremia. Plan is to continue on dialysis and will have a Rituxan if PPD is negative. We will follow.
[2017-12-25 07:54] LABS: #Lymphocytes 1.5 thou/uL (1.20-3.40); #Monocytes 0.8 thou/uL (0.11-0.59); #Neutrophils 9.6 thou/uL (1.40-6.50); %Basophils 0.4 % (0.0-1.0); %Eosinophils 0.4 % (0.0-10.0); %Lymphocytes 12.7 % (21.0-51.0); %Monocytes 6.3 % (0.0-10.0); %Neutrophils 80.2 % (42.0-75.0); Hemoglobin 7.4 g/dL (12.0-16.0); Mean Corpuscular HGB CONC 31.8 g/dL (32.0-36.0); Mean Corpuscular Hemoglobin 28.9 pg (27.0-31.0); Mean Platelet Volume 6.3 fL (7.4-10.4); Platelet Count 341 thou/uL (130-400); RBC Distribution Width 14.5 % (11.5-14.5); Red Blood Cell (RBC) Count 2.54 mill/uL (4.20-5.40)
[2017-12-25 08:16] LABS: Anion Gap 18 mmol/L (10-20); BUN (Urea Nitrogen) 84 mg/dL (9.8-20.1); Calc. Creatinine Clearance 9 mL/min (70-130); Calcium 8.5 mg/dL (7.8-10.44); Carbon Dioxide 22 mmol/L (23-31); Chloride 101 mmol/L (98-107); Estimated GFR-MDRD 8; Glucose 156 mg/dL (83-110); Potassium 4.2 mmol/L (3.5-5.1); Sodium 137 mmol/L (136-145)
[2017-12-25] MEDS: Carvedilol 6.25 MG TAB PO SCH ×2 (09:16→17:38)
[2017-12-25] MEDS: Docusate 100 MG CAP PO SCH ×2 (09:16→21:16)
[2017-12-25] MEDS: Folic Acid/Vit B Comp W-C PO SCH (09:16)
[2017-12-25] MEDS: Amlodipine 5 MG TAB PO SCH (09:16)
[2017-12-25] MEDS: predniSONE 20 MG TAB PO SCH (09:16)
[2017-12-25] MEDS: Folic Acid 1 MG TAB PO SCH (09:16)
[2017-12-25] MEDS: Ferrous Sulfate 325 MG TAB PO SCH (09:16)
[2017-12-25] MEDS: Heparin 5,000 UNITS/ML VIAL SC SCH ×2 (09:17→21:21)
--- NOTE | 2017-12-25 09:32 | RAD ---
FRONTAL AND LATERAL CHEST: Date: 12-25-17 Comparison: 12-17-17 History: Endstage renal disease. FINDINGS: There is a new small to moderate sized pleural effusion on the left. There is new hazy pulmonary pare nchymal opacity in the right lung base medially and overlying the mid right lung zone/right upper lob e. No pneumothorax. Question small right pleural effusion. IMPRESSION: New focal areas of pulmonary parenchymal opacity in the lung bases and right upper lobe with bilatera l pleural effusions, left greater than right. Findings suggest pulmonary edema and/or infectious pneu monitis. Follow up imaging following treatment is advised to document resolution. POS: [id number]
--- NOTE | 2017-12-25 09:41 | PDOC.PN ---
- Subjective Encounter Start Date: 12/25/17 Encounter Start Time: 07:10 Patient seen and examined for ESRD. feels weak, no fever, no cough, has dyspnea , No overnight events - Objective Resuscitation Status: Resuscitation Status DNR:Do Not Resuscitate MAR Reviewed: Yes Vital Signs & Weight: Vital Signs (12 hours) Temp Pulse Resp BP BP Pulse Ox 12/25/17 08:00 97.2 F L 67 20 136/64 100 12/25/17 04:00 98.1 F 78 20 164/70 H 92 L 12/25/17 02:33 95 12/25/17 00:00 18 Weight Weight 151 lb 12.8 oz I&O: 12/24/17 12/25/17 12/26/17 06:59 06:59 06:59 Intake Total 730 1140 Output Total 75 250 Balance 655 890 Result Diagrams: 12/25/17 07:20 12/25/17 07:20 Additional Labs: Accuchecks 12/25/17 12/24/17 12/24/17 05:46 20:45 17:00 POC Glucose 169 H 230 H 212 H 12/24/17 12/21/17 10:54 16:55 POC Glucose 191 H 106 Radiology Reviewed by me: Yes (chest xray reviewed ) EKG Reviewed by me: Yes (nsr) Phys Exam - Physical Examination Constitutional: NAD HEENT: PERRLA, moist MMs, sclera anicteric Neck: no nodes, no JVD, supple, full ROM reduced air entry at base, coarse sound+ Cardiovascular: no rub SM+ at aortic area Gastrointestinal: soft, non-tender, no distention, positive bowel sounds Musculoskeletal: no edema, pulses present Neurological: non-focal, normal sensation Lymphatic: no nodes Psychiatric: normal affect, A&O x 3 Skin: no rash, normal turgor Dx/Plan (1) Acute renal failure Status: Acute Qualifiers: Acute renal failure type: unspecified Qualified Code(s): N17.9 - Acute kidney failure, unspecified Comment: (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 Code(s): N05.9 - UNSP NEPHRITIC SYNDROME WITH UNSPECIFIED MORPHOLOGIC CHANGES; I77.89 - OTHER SPECIFIED DISORDERS OF ARTERIES AND ARTERIOLES Status: Acute (3) ESRD needing dialysis Code(s): N18.6 - END STAGE RENAL DISEASE; Z99.2 - DEPENDENCE ON RENAL DIALYSIS Status: Acute (4) Acute metabolic encephalopathy Code(s): G93.41 - METABOLIC ENCEPHALOPATHY Status: Acute (5) Anemia of renal disease Code(s): D63.1 - ANEMIA IN CHRONIC KIDNEY DISEASE Status: Acute (6) Vitamin D deficiency Code(s): E55.9 - VITAMIN D DEFICIENCY, UNSPECIFIED Status: Acute (7) Diabetes type 2, controlled Code(s): E11.9 - TYPE 2 DIABETES MELLITUS WITHOUT COMPLICATIONS Status: Chronic (8) Dyslipidemia Code(s): E78.5 - HYPERLIPIDEMIA, UNSPECIFIED Status: Chronic (9) Hearing loss Code(s): H91.90 - UNSPECIFIED HEARING LOSS, UNSPECIFIED EAR Status: Chronic (10) Hypertension Code(s): I10 - ESSENTIAL (PRIMARY) HYPERTENSION Status: Chronic (11) Moderate aortic stenosis Code(s): I35.0 - NONRHEUMATIC AORTIC (VALVE) STENOSIS Status: Chronic (12) Moderate mitral regurgitation Code(s): I34.0 - NONRHEUMATIC MITRAL (VALVE) INSUFFICIENCY Status: Chronic (13) Folate deficiency Code(s): E53.8 - DEFICIENCY OF OTHER SPECIFIED B GROUP VITAMINS Status: Acute - Plan cont current plan of care * code status DNR verified with pt * DC tele * transfer to medical floor * 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 Review of Systems - Review of Systems Constitutional: weakness. negative: fever, chills, sweats, malaise, other Eyes: negative: Pain, Vision Change, Conjunctivae Inflammation, Eyelid Inflammation, Redness, Other Respiratory: Shortness of Breath. negative: Cough, Dry, Hemoptysis, SOB with Excertion, Pleuritic Pain, Sputum, Wheezing Cardiovascular: negative: chest pain, palpitations, orthopnea, paroxysmal nocturnal dyspnea, edema, light headedness, other Gastrointestinal: negative: Nausea, Vomiting, Abdominal Pain, Diarrhea, Constipation, Melena, Hematochezia, Other Genitourinary: negative: Dysuria, Frequency, Incontinence, Hematuria, Retention , Other Musculoskeletal: negative: Neck Pain, Shoulder Pain, Arm Pain, Back Pain, Hand Pain, Leg Pain, Foot Pain, Other Skin: negative: Rash, Lesions, Beto, Bruising, Other - Medications/Allergies Allergies/Adverse Reactions: Allergies Allergy/AdvReac Type Severity Reaction Status Date / Time codeine Allergy Swollen Verified 12/17/17 22:50 Lips Medications: Current Medications Acetaminophen (Tylenol) 650 mg PO Q4H PRN PRN Reason: Headache/Fever or Pain Alprazolam (Xanax) 0.5 mg PO BIDPRN PRN PRN Reason: Anxiety Last Admin: 12/20/17 20:42 Dose: 0.5 mg Amlodipine Besylate (Norvasc) 5 mg PO DAILY [facility] Last Admin: 12/25/17 09:16 Dose: 5 mg Atorvastatin Calcium (Lipitor) 80 mg PO [facility] Last Admin: 12/24/17 21:10 Dose: 80 mg Bisacodyl (Dulcolax) 10 mg [place] DAILYPRN PRN PRN Reason: Constipation Carvedilol (Coreg) 6.25 mg PO BID-[facility] Last Admin: 12/25/17 09:16 Dose: 6.25 mg Cholecalciferol (Vitamin D3) 2,000 units PO [facility] Last Admin: 12/24/17 21:10 Dose: 2,000 units Dextrose/Water (Dextrose 50%) 25 gm SLOW IVP PRN PRN PRN Reason: Hypoglycemia Docusate Sodium (Colace) 100 mg PO BID [facility] Last Admin: 12/25/17 09:16 Dose: 100 mg Epoetin Chai (Procrit) 10,000 units SC Q7D [facility] Last Admin: 12/19/17 10:14 Dose: 10,000 units Ferrous Sulfate (Feosol) 325 mg PO QAM-[facility] Last Admin: 12/25/17 09:16 Dose: 325 mg Folic Acid (Folvite) 1 mg PO DAILY [facility] Last Admin: 12/25/17 09:16 Dose: 1 mg Glucagon (Glucagon) 1 mg IM PRN PRN PRN Reason: Hypoglycemia Guaifenesin/Dextromethorphan (Robitussin Dm) 15 ml PO Q4H PRN PRN Reason: Cough Last Admin: 12/19/17 04:52 Dose: 15 ml Heparin Sodium (Porcine) (Heparin) 5,000 units SC BID [facility] Last Admin: 12/25/17 09:17 Dose: 5,000 units Dextrose/Water (D5w) 1,000 mls @ 0 mls/hr IV .Q0M PRN; As Directed PRN Reason: Hypoglycemia Rituximab 500 mg/ Rituximab (150 mg/ Sodium Chloride) 565 mls @ 50 mls/hr IVPB [facility] Stop: 12/25/17 23:59 Insulin Human Lispro (Humalog) 0 units SC .MODERATE SLIDING SC PRN PRN Reason: Moderate Correctional Scale Insulin Human Lispro (Humalog) 0 units [place] .BEDTIME SLIDING SC PRN PRN Reason: Bedtime Correctional Scale Last Admin: 12/23/17 20:40 Dose: 4 unit Pantoprazole Sodium (Protonix) 40 mg PO BID [facility] Last Admin: 12/25/17 09:16 Dose: 40 mg Prednisone (Prednisone) 60 mg PO QAM-[facility] Last Admin: 12/25/17 09:16 Dose: 60 mg Sodium Chloride (Flush - Normal Saline) 10 ml IVF PRN PRN PRN Reason: Saline Flush Last Admin: 12/22/17 23:04 Dose: 10 ml Sodium Chloride (Flush - Normal Saline) 10 ml IV Q12HR [facility] Last Admin: 12/25/17 09:15 Dose: 10 ml Vitamin B Complex/Vit C/Folic Acid (Nephro-Francisco Tablet) 1 tab PO DAILY [facility] Last Admin: 12/25/17 09:16 Dose: 1 tab
[2017-12-25] MEDS: ALPRAZolam 0.5 MG TAB PO PRN (11:43)
[2017-12-25] MEDS ORDERED: diphenhydrAMINE 50 MG/ML VIAL IVP PRN (13:02)
--- NOTE | 2017-12-25 15:15 | ULT ---
BILATERAL UPPER EXTREMITY VEIN MAPPING ULTRASOUND: History: Endstage renal disease, evaluation for dialysis. RIGHT UPPER EXTREMITY BRACHIAL ARTERY: 5.3 mm RADIAL ARTERY: 1.8 mm ULNAR ARTERY: 1.2 mm CEPHALIC VEIN Proximal Arm: 2.9 mm Mid Arm: 2.9 mm Distal Arm: 0.7 mm Antecubital Fossa: 1.6 mm Proximal Forearm: 2.3 mm Mid Forearm: 1.4 mm Distal Forearm: 1.1 mm BASILIC VEIN Proximal Arm: 6.6 mm Mid Arm: 2.7 mm Distal Arm: 2.5 mm Antecubital Fossa: 1.3 mm Proximal Forearm: 1.9 mm Mid Forearm: 1.8 mm Distal Forearm: 1.7 mm LEFT UPPER EXTREMITY BRACHIAL ARTERY: 4.1 mm RADIAL ARTERY: 2.1 mm ULNAR ARTERY: 1.8 mm CEPHALIC VEIN Proximal Arm: 2.2 mm Mid Arm: 2.0 mm Distal Arm: 1.7 mm Antecubital Fossa: 3.6 mm Proximal Forearm: 0.8 mm Mid Forearm: 0.4 mm Distal Forearm: 1.6 mm BASILIC VEIN Proximal Arm: 2.1 mm Mid Arm: 2.6 mm Distal Arm: 2.0 mm Antecubital Fossa: 1.5 mm Proximal Forearm: 1.2 mm Mid Forearm: 1.1 mm Distal Forearm: 0.9 mm There is incompletely incompressibility of the cephalic veins at the level of the antecubital fossa. IMPRESSION: Vein mapping as above. POS: [facility]
[2017-12-25] MEDS: HumaLOG 300 UNITS/3 ML VIAL SC PRN (17:40)
--- NOTE | 2017-12-25 19:21 | PRG ---
DATE OF SERVICE: 12/25/2017 SUBJECTIVE: Patient was seen and examined at bedside and overnight events noted. Patient denies any shortness of breath or chest pain or palpitation. No history of nausea or vomiting or diarrhea or fever or chills or cramps. OBJECTIVE: GENERAL: This is an elderly female, in no apparent distress. VITAL SIGNS: Temperature 97.6, pulse 71, respiratory 18, blood pressure 146/67. HEENT: Atraumatic, normocephalic, oral mucosa is moist. NECK: Supple. CARDIOVASCULAR: S1, S2 heard, rate and rhythm regular. RESPIRATORY: Clear to auscultation. GASTROINTESTINAL: Abdomen is soft. MUSCULOSKELETAL: No tenderness, no edema. DERMATOLOGIC: No skin rash. NEUROLOGIC: Alert and awake and oriented x3. No focal neurologic deficits. Moving all the extremities. PSYCHIATRIC: Mood and affect normal. LABORATORY DATA: Potassium is 4.2, BUN is 84, creatinine is 5.2. ASSESSMENT AND PLAN: 1. End-stage renal disease, started on hemodialysis. We will continue on dialysis. 2. 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 3. Edema, controlled. 4. Hypertension, stable. 5. Anemia. Monitor hemoglobin. Plan is to continue on dialysis Sunday, Sunday, and Sunday. I appreciate help from Surgery for access placement. We will follow. BHAKTID
[2017-12-25] MEDS: Atorvastatin Calcium 40 MG TAB PO SCH (21:16)
--- NOTE | 2017-12-25 22:14 | HP ---
HISTORY OF PRESENT ILLNESS: An 82-year-old female who lives at home independently, ambulatory, takes care of her cerebral palsy son. She has diabetes type 2 and hypertension, has been seen by Dr. Troy benton and a temporary hemodialysis catheter placed in her groin. Plan at this time, I have been asked to see him regarding placement of hemodialysis catheter in the fistula. Ultrasound vein mapping sugg ests the left arm to be superior. We will plan placement of hemodialysis catheter in central line an d possible left arm fistula or dialysis graft tomorrow. Risks and benefits explained. She consents. ALLERGIES: CODEINE. TOBACCO: None. ALCOHOL: None. MEDICATIONS: Metformin, atorvastatin, atenolol. PAST SURGICAL HISTORY: . PAST MEDICAL HISTORY: Hypertension, diabetes mellitus type 2, dyslipidemia. FAMILY HISTORY: Son, cerebral palsy, otherwise noncontributory. Sister of cancer, unknown sour ce. REVIEW OF SYSTEMS: Ten point noncontributory. PHYSICAL EXAMINATION: VITAL SIGNS: 5 feet, 251 pounds. HEAD, EARS, EYES, NOSE, AND THROAT: Unremarkable. Sclerae nonicteric. LUNGS: Clear to auscultation. CARDIAC: Regular rate and rhythm without murmur or gallop. ABDOMEN: Soft, nontender. EXTREMITIES: Palpable femoral pulses, pedal pulses, palpable radial pulses. Antecubital fossa bilat erally. Ecchymotic from IV access. Groin Trialysis catheter. Without edema. LYMPHATICS: Neck, axilla, groins without lymphadenopathy. NEUROLOGIC: Intact. SKIN: Turgor normal. Nonjaundiced. LABORATORY DATA: White count 12, hemoglobin 7.4. Sodium 137, potassium 4.2, carbon dioxide 22, BUN 84, creatinine 5.3, and GFR 8. Accu-Cheks 150 to 212. ASSESSMENT AND PLAN: End-stage renal disease. We will plan placement of a cuffed-tunnel dialysis ca theter, probable central line and left arm primary fistula. Risk of infection, bleeding, and reopera tion explained. She consents.
[2017-12-26 05:54] LABS: Anion Gap 17 mmol/L (10-20); BUN (Urea Nitrogen) 99 mg/dL (9.8-20.1); Calc. Creatinine Clearance 8 mL/min (70-130); Calcium 8.1 mg/dL (7.8-10.44); Carbon Dioxide 24 mmol/L (23-31); Chloride 102 mmol/L (98-107); Estimated GFR-MDRD 7; Glucose 139 mg/dL (83-110); Potassium 3.8 mmol/L (3.5-5.1); Sodium 139 mmol/L (136-145)
--- NOTE | 2017-12-26 07:36 | PRG ---
DATE OF SERVICE: 12/26/2017 SUBJECTIVE: The patient is resting comfortably. Denies sensation of incomplete void. Denies suprap ubic discomfort. OBJECTIVE: Vital signs are stable. She is afebrile. I's and O's, the patient incontinent, postvoid residual was checked per my request by nursing staff, has had minimal post-void residual, not of con cern. PERTINENT LABORATORY DATA: 1. Hemoglobin 7.4, white count 12, platelets 241. BUN 99, creatinine 5.76. The patient has been on hemodialysis. 2. Urine culture negative. IMPRESSION AND PLAN: This is an 82-year-old female admitted for end-stage renal disease, on hemodial ysis. 1. Antineutrophil cytoplasmic antibody vasculitis. 2. Microscopic hematuria, catheter related. 3. History of postvoid residual on initial consultation of 400 mL with ultrasound demonstrating poss ible hydro. 4. Definitive CT demonstrates no evidence of hydronephrosis. 5. Evans catheter has been removed for a voiding trial, patient has had no significant postvoid resi dual of concern. Continue medical management. Hemodialysis per primary service. We will sign off. Call if any questions or concerns. 6. Status post renal biopsy, pathology demonstrating glomerulonephritis, glomerulosclerosis.
[2017-12-26] MEDS ORDERED: Epoetin (NON-ESRD) 20,000 UNITS/ML ML IVP SCH (09:00)
--- NOTE | 2017-12-26 09:37 | PDOC.PN ---
- Subjective Encounter Start Date: 12/26/17 Encounter Start Time: 07:00 Patient seen and examined for ESRD, pt seen in HD room, tolerating HD, No new complaints. No overnight events - Objective Resuscitation Status: Resuscitation Status DNR:Do Not Resuscitate MAR Reviewed: Yes Vital Signs & Weight: Weight Weight 151 lb 10.848 oz I&O: 12/25/17 12/26/17 12/27/17 06:59 06:59 06:59 Intake Total 1140 830 Output Total 250 Balance 890 830 Result Diagrams: 12/25/17 07:20 12/26/17 04:57 Additional Labs: Accuchecks 12/26/17 12/25/17 12/25/17 05:30 21:07 16:52 POC Glucose 148 H 241 H 265 H 12/25/17 11:34 POC Glucose 224 H Phys Exam - Physical Examination Constitutional: NAD HEENT: PERRLA, moist MMs, sclera anicteric Neck: no JVD, supple Respiratory: no wheezing, no rales, no rhonchi Cardiovascular: RRR, no significant murmur, no rub Gastrointestinal: soft, non-tender, no distention, positive bowel sounds Musculoskeletal: no edema, pulses present right groin HD catheter+ Neurological: non-focal, normal sensation, moves all 4 limbs Lymphatic: no nodes Psychiatric: normal affect, A&O x 3 Skin: no rash, normal turgor Dx/Plan (1) Acute renal failure Status: Acute Qualifiers: Acute renal failure type: unspecified Qualified Code(s): N17.9 - Acute kidney failure, unspecified Comment: (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 Code(s): N05.9 - UNSP NEPHRITIC SYNDROME WITH UNSPECIFIED MORPHOLOGIC CHANGES; I77.89 - OTHER SPECIFIED DISORDERS OF ARTERIES AND ARTERIOLES Status: Acute (3) ESRD needing dialysis Code(s): N18.6 - END STAGE RENAL DISEASE; Z99.2 - DEPENDENCE ON RENAL DIALYSIS Status: Acute (4) Acute metabolic encephalopathy Code(s): G93.41 - METABOLIC ENCEPHALOPATHY Status: Acute (5) Anemia of renal disease Code(s): D63.1 - ANEMIA IN CHRONIC KIDNEY DISEASE Status: Acute (6) Vitamin D deficiency Code(s): E55.9 - VITAMIN D DEFICIENCY, UNSPECIFIED Status: Acute (7) Diabetes type 2, controlled Code(s): E11.9 - TYPE 2 DIABETES MELLITUS WITHOUT COMPLICATIONS Status: Chronic (8) Dyslipidemia Code(s): E78.5 - HYPERLIPIDEMIA, UNSPECIFIED Status: Chronic (9) Hearing loss Code(s): H91.90 - UNSPECIFIED HEARING LOSS, UNSPECIFIED EAR Status: Chronic (10) Hypertension Code(s): I10 - ESSENTIAL (PRIMARY) HYPERTENSION Status: Chronic (11) Moderate aortic stenosis Code(s): I35.0 - NONRHEUMATIC AORTIC (VALVE) STENOSIS Status: Chronic (12) Moderate mitral regurgitation Code(s): I34.0 - NONRHEUMATIC MITRAL (VALVE) INSUFFICIENCY Status: Chronic (13) Folate deficiency Code(s): E53.8 - DEFICIENCY OF OTHER SPECIFIED B GROUP VITAMINS Status: Acute - Plan cont current plan of care, public health social worker * today pt is planned for tunneled HD catheter placement * will need arrangement for HD * I think she will need placement if pt agrees * medication reviewed as below * symptomatic treatment * overall stable * renal function has not improved with steroid. Review of Systems - Review of Systems Constitutional: weakness. negative: fever, chills, sweats, malaise, other ENT: negative: Ear Pain, Ear Discharge, Nose Pain, Nose Discharge, Nose Congestion, Mouth Pain, Mouth Swelling, Throat Pain, Throat Swelling, Other Respiratory: negative: Cough, Dry, Shortness of Breath, Hemoptysis, SOB with Excertion, Pleuritic Pain, Sputum, Wheezing Cardiovascular: negative: chest pain, palpitations, orthopnea, paroxysmal nocturnal dyspnea, edema, light headedness, other Gastrointestinal: negative: Nausea, Vomiting, Abdominal Pain, Diarrhea, Constipation, Melena, Hematochezia, Other Genitourinary: negative: Dysuria, Frequency, Incontinence, Hematuria, Retention , Other Musculoskeletal: negative: Neck Pain, Shoulder Pain, Arm Pain, Back Pain, Hand Pain, Leg Pain, Foot Pain, Other Skin: negative: Rash, Lesions, Beto, Bruising, Other - Medications/Allergies Allergies/Adverse Reactions: Allergies Allergy/AdvReac Type Severity Reaction Status Date / Time codeine Allergy Swollen Verified 12/17/17 22:50 Lips Medications: Current Medications Acetaminophen (Tylenol) 650 mg PO Q4H PRN PRN Reason: Headache/Fever or Pain Last Admin: 12/25/17 15:11 Dose: 650 mg Alprazolam (Xanax) 0.5 mg PO BIDPRN PRN PRN Reason: Anxiety Last Admin: 12/25/17 11:43 Dose: 0.5 mg Amlodipine Besylate (Norvasc) 5 mg PO DAILY [facility] Last Admin: 12/25/17 09:16 Dose: 5 mg Atorvastatin Calcium (Lipitor) 80 mg PO [facility] Last Admin: 12/25/17 21:16 Dose: 80 mg Bisacodyl (Dulcolax) 10 mg [place] DAILYPRN PRN PRN Reason: Constipation Carvedilol (Coreg) 6.25 mg PO BID-[facility] Last Admin: 12/25/17 17:38 Dose: 6.25 mg Cholecalciferol (Vitamin D3) 2,000 units PO [facility] Last Admin: 12/25/17 21:16 Dose: 2,000 units Dextrose/Water (Dextrose 50%) 25 gm SLOW IVP PRN PRN PRN Reason: Hypoglycemia Diphenhydramine HCl (Benadryl) 25 mg IVP Q6H PRN PRN Reason: Itching Last Admin: 12/25/17 15:11 Dose: 25 mg Docusate Sodium (Colace) 100 mg PO BID [facility] Last Admin: 12/25/17 21:16 Dose: 100 mg Epoetin Chai (Procrit) 10,000 units IVP MWF@0900 [facility] Ferrous Sulfate (Feosol) 325 mg PO QAM-[facility] Last Admin: 12/25/17 09:16 Dose: 325 mg Folic Acid (Folvite) 1 mg PO DAILY [facility] Last Admin: 12/25/17 09:16 Dose: 1 mg Glucagon (Glucagon) 1 mg IM PRN PRN PRN Reason: Hypoglycemia Guaifenesin/Dextromethorphan (Robitussin Dm) 15 ml PO Q4H PRN PRN Reason: Cough Last Admin: 12/19/17 04:52 Dose: 15 ml Heparin Sodium (Porcine) (Heparin) 5,000 units SC BID [facility] Last Admin: 12/25/17 21:21 Dose: Not Given Dextrose/Water (D5w) 1,000 mls @ 0 mls/hr IV .Q0M PRN; As Directed PRN Reason: Hypoglycemia Insulin Human Lispro (Humalog) 0 units SC .MODERATE SLIDING SC PRN PRN Reason: Moderate Correctional Scale Last Admin: 12/25/17 17:40 Dose: 6 unit Insulin Human Lispro (Humalog) 0 units SC .BEDTIME SLIDING SC PRN PRN Reason: Bedtime Correctional Scale Last Admin: 12/23/17 20:40 Dose: 4 unit Pantoprazole Sodium (Protonix) 40 mg PO BID [facility] Last Admin: 12/25/17 21:16 Dose: 40 mg Prednisone (Prednisone) 60 mg PO QA-[facility] Last Admin: 12/25/17 09:16 Dose: 60 mg Sodium Chloride (Flush - Normal Saline) 10 ml IVF PRN PRN PRN Reason: Saline Flush Last Admin: 12/22/17 23:04 Dose: 10 ml Sodium Chloride (Flush - Normal Saline) 10 ml IV Q12HR [facility] Last Admin: 12/25/17 21:17 Dose: 10 ml Vitamin B Complex/Vit C/Folic Acid (Nephro-Francisco Tablet) 1 tab PO DAILY [facility] Last Admin: 12/25/17 09:16 Dose: 1 tab
[2017-12-26] MEDS: Carvedilol 6.25 MG TAB PO SCH ×2 (11:54→16:58)
[2017-12-26] MEDS: Heparin 5,000 UNITS/ML VIAL SC SCH ×2 (11:55→20:58)
[2017-12-26] MEDS: Folic Acid/Vit B Comp W-C PO SCH (11:56)
[2017-12-26] MEDS: Docusate 100 MG CAP PO SCH ×2 (11:56→20:58)
[2017-12-26] MEDS: Amlodipine 5 MG TAB PO SCH (11:56)
[2017-12-26] MEDS: Folic Acid 1 MG TAB PO SCH (11:57)
[2017-12-26] MEDS: predniSONE 20 MG TAB PO SCH (12:45)
[2017-12-26] MEDS: Ferrous Sulfate 325 MG TAB PO SCH (12:45)
[2017-12-26] MEDS: Epoetin (ESRD) 10,000 UNITS/ML VIAL IVP SCH (12:45)
--- NOTE | 2017-12-26 17:27 | PRG ---
DATE OF SERVICE: 12/26/2017 SUBJECTIVE: Patient was seen and examined at bedside and overnight events noted. Patient denies any shortness of breath or chest pain or palpitation. No history of nausea or vomiting or diarrhea or fever or chills or cramps. OBJECTIVE: GENERAL: This is an elderly female in no apparent distress. VITAL SIGNS: Temperature 97.0, pulse 70, respiratory rate 18, blood pressure 177/77. HEENT: Atraumatic, normocephalic. Oral mucosa is moist. NECK: Supple. CARDIOVASCULAR: S1, S2 heard. Rate and rhythm regular. RESPIRATORY: Clear to auscultation. GASTROINTESTINAL: Abdomen is soft. MUSCULOSKELETAL: No tenderness. No edema. DERMATOLOGIC: No skin rash. NEUROLOGIC: Alert and awake and oriented x3. No focal neurologic deficits. Moving all the extremities. PSYCHIATRIC: Mood and affect normal. LABORATORY DATA: Potassium is 3.8, BUN 99, creatinine is 5.7. ASSESSMENT AND PLAN: 1. End-stage renal disease, started on hemodialysis during this admission, tolerating well. Pt continues to need dialysis due to ANCA vasculitis. 2. ANCA vasculitis - s/p IV steroids X 3 days and currently on oral steroids. She also got one dose of Rituxan. Needs to follow up with Rheumatology as outpatient. Plan to give Rituxan once a week X 4. 3. Edema, controlled. 4. Hypertension, stable. 5. Hyperkalemia, better. 6. Anemia. We will continue Epogen with dialysis. Plan is to continue on dialysis as tolerated. MTDD
[2017-12-26] MEDS: Atorvastatin Calcium 40 MG TAB PO SCH (20:57)
[2017-12-27] MEDS: Carvedilol 6.25 MG TAB PO SCH ×2 (05:32→17:11)
[2017-12-27] MEDS ORDERED: Sodium Chloride 0.65% Nasal 44 ML BOT EA NARE PRN (06:43)
[2017-12-27] MEDS ORDERED: Mag-Al 1200 mg/1200 mg/30 ML UDCUP PO PRN (06:43)
[2017-12-27] MEDS ORDERED: Chloraseptic Spray 180 ml Bottle PO PRN (06:43)
[2017-12-27] MEDS ORDERED: Artificial Tears 18 DROP/0.9 ML EA EYE PRN (06:43)
[2017-12-27] MEDS ORDERED: Temazepam 15 MG CAP PO PRN (06:43)
[2017-12-27] MEDS ORDERED: Loperamide HCl 2 MG CAP PO PRN (06:43)
[2017-12-27] MEDS ORDERED: hydrALAZINE 20 MG/ML VIAL SLOW IVP PRN (06:43)
[2017-12-27] MEDS ORDERED: Loratadine 10 MG TAB PO PRN (06:43)
[2017-12-27] MEDS ORDERED: Eucerin (Mineral Oil/Petrolatum,White) 30 gm Jar TOP PRN (06:43)
[2017-12-27] MEDS ORDERED: Diabetic Tussin 200 MG/10 ML UDCUP PO PRN (06:43)
[2017-12-27] MEDS ORDERED: Ondansetron HCl/PF 4 MG/2 ML Vial IVP PRN ×2 (06:43→14:14)
--- NOTE | 2017-12-27 08:52 | PRG ---
Patient Name: ARLEEN ESTRADA Date of service: 12/27/2017 Subjective: Patient was seen and examined at bedside and overnight events noted. Patient denies any shortness of breath or chest pain or palpitation. No history of nausea or vomiting or diarrhea or fever or chills or cramps. Objective: General: This is an elderly female in no apparent distress. Vital signs: Temperature 98.2, pulse 60, respiratory rate 18, blood pressure 150/69. HEENT: Atraumatic, normocephalic. Oral mucosa is moist. Neck: Supple. Cardiovascular: S1 S2 heard. Rate and rhythm regular. Respiratory: Clear to auscultation. Gastrointestinal: Abdomen is soft. Musculoskeletal: No tenderness. No edema. Dermatologic: No skin rash. Neurologic: Alert and awake and oriented X3. No focal neurologic deficits. Moving all the extremit ies. Psychiatric: Mood and affect normal. LABORATORY: Not done today. ASSESSMENT AND PLAN: 1. End-stage renal disease on hemodialysis during this admission, tolerating well. Plan is to [facility] on dialysis. Dr. Demarco to put a fistula and tunneled dialysis catheter today. I appreciate hel p and follow with case management for outpatient placement. 2. ANCA vasculitis, status post IV steroids and oral steroids. Plan is to continue Rituxan once a w [place] for 3 more doses starting next week. Need follow up outpatient with Rheumatology too. 3. Edema. 4. Hypertension. 5. Hyperkalemia. 6. Anemia. We will continue Epogen with dialysis. Overall, prognosis is poor. Tolerating dialysis well. The plan is to continue dialysis for now and we will follow. Thank you for the consult.
[2017-12-27] MEDS: predniSONE 20 MG TAB PO SCH (09:59)
[2017-12-27] MEDS: Docusate 100 MG CAP PO SCH ×2 (10:54→21:38)
[2017-12-27] MEDS: Heparin 5,000 UNITS/ML VIAL SC SCH ×2 (10:54→21:41)
--- NOTE | 2017-12-27 10:58 | PDOC.PN ---
- Subjective Encounter Start Date: 12/27/17 Encounter Start Time: 07:00 Patient seen and examined for ESRD, pt is NPO for possible surgery for AVF today. No new complaints. No overnight events - Objective Resuscitation Status: Resuscitation Status DNR:Do Not Resuscitate MAR Reviewed: Yes Vital Signs & Weight: Vital Signs (12 hours) Temp Pulse Resp BP BP BP Pulse Ox 12/27/17 08:00 98.0 F 80 16 154/70 H 99 12/27/17 05:35 150/69 H 12/27/17 05:32 150/69 H Weight Weight 151 lb 10.848 oz I&O: 12/26/17 12/27/17 12/28/17 06:59 06:59 06:59 Intake Total 830 710 Output Total 100 Balance 830 610 Result Diagrams: 12/25/17 07:20 12/26/17 04:57 Additional Labs: Accuchecks 12/27/17 12/26/17 12/26/17 05:40 20:52 16:35 POC Glucose 138 H 244 H 227 H Phys Exam - Physical Examination Constitutional: NAD HEENT: PERRLA, moist MMs, sclera anicteric Neck: no JVD, supple Respiratory: no wheezing, no rales, no rhonchi Cardiovascular: RRR, no significant murmur, no rub Gastrointestinal: soft, non-tender, no distention, positive bowel sounds Musculoskeletal: no edema, pulses present Neurological: non-focal, normal sensation Lymphatic: no nodes Psychiatric: normal affect Skin: no rash, normal turgor Dx/Plan (1) Acute renal failure Status: Acute Qualifiers: Acute renal failure type: unspecified Qualified Code(s): N17.9 - Acute kidney failure, unspecified Comment: now ESRD (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 Code(s): N05.9 - UNSP NEPHRITIC SYNDROME WITH UNSPECIFIED MORPHOLOGIC CHANGES; I77.89 - OTHER SPECIFIED DISORDERS OF ARTERIES AND ARTERIOLES Status: Acute (3) ESRD needing dialysis Code(s): N18.6 - END STAGE RENAL DISEASE; Z99.2 - DEPENDENCE ON RENAL DIALYSIS Status: Acute (4) Acute metabolic encephalopathy Code(s): G93.41 - METABOLIC ENCEPHALOPATHY Status: Resolved (5) Anemia of renal disease Code(s): D63.1 - ANEMIA IN CHRONIC KIDNEY DISEASE Status: Acute (6) Vitamin D deficiency Code(s): E55.9 - VITAMIN D DEFICIENCY, UNSPECIFIED Status: Acute (7) Diabetes type 2, controlled Code(s): E11.9 - TYPE 2 DIABETES MELLITUS WITHOUT COMPLICATIONS Status: Chronic (8) Dyslipidemia Code(s): E78.5 - HYPERLIPIDEMIA, UNSPECIFIED Status: Chronic (9) Hearing loss Code(s): H91.90 - UNSPECIFIED HEARING LOSS, UNSPECIFIED EAR Status: Chronic (10) Hypertension Code(s): I10 - ESSENTIAL (PRIMARY) HYPERTENSION Status: Chronic (11) Moderate aortic stenosis Code(s): I35.0 - NONRHEUMATIC AORTIC (VALVE) STENOSIS Status: Chronic (12) Moderate mitral regurgitation Code(s): I34.0 - NONRHEUMATIC MITRAL (VALVE) INSUFFICIENCY Status: Chronic (13) Folate deficiency Code(s): E53.8 - DEFICIENCY OF OTHER SPECIFIED B GROUP VITAMINS Status: Acute - Plan cont 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 * repeat labs tomorrow Review of Systems - Review of Systems Eyes: negative: Pain, Vision Change, Conjunctivae Inflammation, Eyelid Inflammation, Redness, Other ENT: negative: Ear Pain, Ear Discharge, Nose Pain, Nose Discharge, Nose Congestion, Mouth Pain, Mouth Swelling, Throat Pain, Throat Swelling, Other Respiratory: negative: Cough, Dry, Shortness of Breath, Hemoptysis, SOB with Excertion, Pleuritic Pain, Sputum, Wheezing Cardiovascular: negative: chest pain, palpitations, orthopnea, paroxysmal nocturnal dyspnea, edema, light headedness, other Gastrointestinal: negative: Nausea, Vomiting, Abdominal Pain, Diarrhea, Constipation, Melena, Hematochezia, Other Genitourinary: negative: Dysuria, Frequency, Incontinence, Hematuria, Retention , Other Musculoskeletal: negative: Neck Pain, Shoulder Pain, Arm Pain, Back Pain, Hand Pain, Leg Pain, Foot Pain, Other Skin: negative: Rash, Lesions, Beto, Bruising, Other - Medications/Allergies Allergies/Adverse Reactions: Allergies Allergy/AdvReac Type Severity Reaction Status Date / Time codeine Allergy Swollen Verified 12/17/17 22:50 Lips Medications: Current Medications Acetaminophen (Tylenol) 650 mg PO Q4H PRN PRN Reason: Headache/Fever or Pain Last Admin: 12/25/17 15:11 Dose: 650 mg Al Hydroxide/Mg Hydroxide (Maalox) 15 ml PO Q4H PRN PRN Reason: Heartburn or Indigestion Alprazolam (Xanax) 0.5 mg PO BIDPRN PRN PRN Reason: Anxiety Last Admin: 12/25/17 11:43 Dose: 0.5 mg Amlodipine Besylate (Norvasc) 10 mg PO DAILY [facility] Artificial Tears (Tears Naturale) 0 drop EA EYE PRN PRN PRN Reason: Dry Eyes Atorvastatin Calcium (Lipitor) 80 mg PO [facility] Last Admin: 12/26/17 20:57 Dose: 80 mg Bisacodyl (Dulcolax) 10 mg RI DAILYPRN PRN PRN Reason: Constipation [facility] ([facility]) [facility] Last Admin: 12/27/17 05:32 Dose: 6.25 mg Cholecalciferol (Vitamin D3) 2,000 units PO [facility] Last Admin: 12/26/17 20:57 Dose: 2,000 units Dextrose/Water (Dextrose 50%) 25 gm SLOW IVP PRN PRN PRN Reason: Hypoglycemia Diphenhydramine HCl (Benadryl) 25 mg IVP Q6H PRN PRN Reason: Itching Last Admin: 12/25/17 15:11 Dose: 25 mg Docusate Sodium (Colace) 100 mg PO BID [facility] Last Admin: 12/27/17 10:54 Dose: Not Given Epoetin Chai (Procrit) 10,000 units IVP MWF@0900 [facility] Last Admin: 12/26/17 12:45 Dose: 10,000 units Ferrous Sulfate (Feosol) 325 mg PO [facility] Last Admin: 12/26/17 12:45 Dose: 325 mg Folic Acid (Folvite) 1 mg PO DAILY [facility] Last Admin: 12/26/17 11:57 Dose: 1 mg Glucagon (Glucagon) 1 mg IM PRN PRN PRN Reason: Hypoglycemia Guaifenesin (Robitussin Sf) 200 mg PO Q4H PRN PRN Reason: Cough Guaifenesin/Dextromethorphan (Robitussin Dm) 15 ml PO Q4H PRN PRN Reason: Cough Last Admin: 12/19/17 04:52 Dose: 15 ml Heparin Sodium (Porcine) (Heparin) 5,000 units SC BID [facility] Last Admin: 12/27/17 10:54 Dose: Not Given Hydralazine HCl (Apresoline) 10 mg SLOW IVP Q4H PRN PRN Reason: Systolic BP > 180 Dextrose/Water (D5w) 1,000 mls @ 0 mls/hr IV .Q0M PRN; As Directed PRN Reason: Hypoglycemia Insulin Human Lispro (Humalog) 0 units SC .MODERATE SLIDING SC PRN PRN Reason: Moderate Correctional Scale Last Admin: 12/25/17 17:40 Dose: 6 unit Insulin Human Lispro (Humalog) 0 units SC .BEDTIME SLIDING SC PRN PRN Reason: Bedtime Correctional Scale Last Admin: 12/23/17 20:40 Dose: 4 unit Loperamide HCl (Imodium) 2 mg PO PRN PRN PRN Reason: Diarrhea/Loose Stools Loratadine (Claritin) 10 mg PO DAILYPRN PRN PRN Reason: Sinus Symptoms Mineral Oil/White Petrolatum (Eucerin Cream) 0 gm TOP BIDPRN PRN PRN Reason: Dry Skin Ondansetron HCl (Zofran Odt) 4 mg PO Q6H PRN PRN Reason: Nausea/Vomiting Ondansetron HCl (Zofran) 4 mg IVP Q6H PRN PRN Reason: Nausea/Vomiting Pantoprazole Sodium (Protonix) 40 mg PO DAILY [facility] Phenol (Chloraseptic [place] 180 Ml Bot) 0 ml PO PRN PRN PRN Reason: Sore Throat Prednisone (Prednisone) 60 mg PO [facility] Last Admin: 12/27/17 09:59 Dose: 60 mg Sodium Chloride (Flush - Normal Saline) 10 ml IVF PRN PRN PRN Reason: Saline Flush Last Admin: 12/22/17 23:04 Dose: 10 ml Sodium Chloride (Flush - Normal Saline) 10 ml IV Q12HR [facility] Last Admin: 12/26/17 21:03 Dose: 10 ml Sodium Chloride ([place] Nasal [place] 0.65%) 0 ml EA NARE QIDPRN PRN PRN Reason: Nasal Congestion Temazepam (Restoril) 15 mg PO HSPRN PRN PRN Reason: Insomnia Vitamin B Complex/Vit C/Folic Acid (Nephro-Francisco Tablet) 1 tab PO DAILY [facility] Last Admin: 12/26/17 11:56 Dose: 1 tab
[2017-12-27 11:58] LABS: Hemoglobin 7.2 g/dL (12.0-16.0); Mean Corpuscular HGB CONC 33.6 g/dL (32.0-36.0); Mean Corpuscular Hemoglobin 30.6 pg (27.0-31.0); Mean Corpuscular Volume 91.2 fL (78.0-98.0); Mean Platelet Volume 6.2 fL (7.4-10.4); Platelet Count 303 thou/uL (130-400); RBC Distribution Width 15.3 % (11.5-14.5); Red Blood Cell (RBC) Count 2.34 mill/uL (4.20-5.40); White Blood Cell (WBC) Count 19.4 thou/uL (4.8-10.8)
[2017-12-27] MEDS ORDERED: Propofol 500 MG/50 ML VIAL ONE (12:13)
[2017-12-27 12:14] LABS: Anisocytosis SLIGHT = 6-15 cells (100X) (0-5/hpf); Band 2 % (5-11); Basophilic Stippling SLIGHT = 1-2 cells (100X) (None Seen); Lymphocytes 8 % (21-51); MDiff Complete? YES; Monocytes 1 % (0-10); Neutrophil 88 % (42-75); PLT Morphology Comment Appears Adequate; Polychromasia MODERATE = 3-4 cells (100X) (0-2/hpf); Reactive Lymphocytes 1 % (0-10)
[2017-12-27 12:16] LABS: BUN (Urea Nitrogen) 50 mg/dL (9.8-20.1); Calc. Creatinine Clearance 12 mL/min (70-130); Calcium 8.2 mg/dL (7.8-10.44); Carbon Dioxide 28 mmol/L (23-31); Estimated GFR-MDRD 11; Glucose 146 mg/dL (83-110)
[2017-12-27 12:17] LABS: Chloride 101 mmol/L (98-107); Sodium 138 mmol/L (136-145)
[2017-12-27 12:22] LABS: Anion Gap 13 mmol/L (10-20)
[2017-12-27] MEDS ORDERED: Heparin 5,000 UNITS/ML VIAL ONE (12:32)
[2017-12-27] MEDS ORDERED: Sodium Chloride 0.9% 30 ML ONE (12:32)
[2017-12-27] MEDS ORDERED: Heparin 10,000 UNITS/1 ML VIAL ONE (12:32)
[2017-12-27] MEDS ORDERED: Lidocaine 2% 10 ML INJ ONE (12:32)
[2017-12-27] MEDS ORDERED: Protamine Sulfate 50 MG/5 ML VIAL ONE (12:32)
[2017-12-27] MEDS ORDERED: Bupivacaine HCl 0.5%/Epinephrine 1:200,000/PF 30 ml Vial ONE ×2 (12:32→14:11)
[2017-12-27] MEDS ORDERED: Fentanyl 100 MCG/2 ML VIAL ONE (12:39)
[2017-12-27 13:57] VITALS: BMI 27.7
[2017-12-27] MEDS ORDERED: Promethazine HCl 25 MG/ML VIAL IM PRN (14:14)
[2017-12-27] MEDS ORDERED: Promethazine HCl 25 MG/ML VIAL SLOW IVP PRN (14:14)
[2017-12-27] MEDS ORDERED: PROPOFOL 200 MG/20 ML VIAL ONE (14:16)
[2017-12-27] MEDS ORDERED: Lidocaine 1% PF 5 ML VIAL ONE (14:16)
[2017-12-27] MEDS ORDERED: Heparin 10,000 UNITS/ 10 ML VIAL ONE (14:16)
--- NOTE | 2017-12-27 14:53 | RAD ---
SUPINE FRONTAL CHEST RADIOGRAPH: DATE: 12/27/17. COMPARISON: 12/17/17. HISTORY: Central line placement. FINDINGS: A right-sided dialysis catheter is present, distal tip overlying the expected location of the cavoatr ial junction. There is a left-sided vascular catheter with distal tip overlying the region of the ri ght atrium. Since the 12/17/17 examination, there has been interval development of dense airspace disease in the m edial aspect of the right lung, especially the right perihilar region, as well as in the left upper l obe and the medial left base. There is left basilar consolidation/collapse and there is prominent le ft pleural effusion. IMPRESSION: Lines and tubes as described above. Nonspecific airspace disease with pleural effusion may signify c hange associated with edema and/or infectious pneumonitis. Followup imaging following treatment to d ocument resolution advised. POS: ANDREY
[2017-12-27] MEDS: Ferrous Sulfate 325 MG TAB PO SCH (17:10)
--- NOTE | 2017-12-27 17:15 | OP ---
DATE OF PROCEDURE: 12/27/2017 PREOPERATIVE DIAGNOSIS: End-stage renal disease, poor IV access. POSTOPERATIVE DIAGNOSIS: End-stage renal disease, poor IV access. PROCEDURES: Right IJ cuffed tunnel hemodialysis catheter, angiodynamics precurved, left IJ triple hakeem men catheter. Left arm primary AV fistula and cephalic vein to proximal radial artery, outflow cepha lic vein only. Note, perforating branch too small and was ligated. SURGEON: Dr. Demarco. ANESTHESIA: Left arm regional TIVA. Local 0.5% Marcaine with epinephrine, 30 mL, mixed with 2% Xylo raegan, 10 mL. DESCRIPTION OF PROCEDURE: The patient taken to the operating room where under regional anesthesia an d intravenous sedation, neck, chest and left arm, axilla prepared with ChloraPrep, draped in routine fashion. Ultrasound guidance used to cannulate the right and left internal jugular veins with trocar catheter and J-wire was inserted and trocar catheter removed. Skin incised and enlarged sharply. S tab incision made over the right chest. Using the tunneling device, the precurved angiodynamics cuff ed tunnel hemodialysis catheter tunneled between the two incisions on the right and cuff of the robert ter placed beneath the skin exit site. Catheter secured with 2 interrupted sutures of 3-0 nylon. Sm aller and medium sized dilators placed over the J-wire, the internal jugular vein removed. Dilator a nd pull-away sheath placed over the J-wire into the superior vena cava and dilator and J-wire removed . Catheter placed with pull-away sheath. Pull-away sheath removed. Platysma approximated with 4-0 Monocryl, skin with subdermal 4-0 Monocryl and DermaGlue applied. Each port aspirated, blood flushed with saline solution. Heparinized saline solution 1000 units of heparin per mL indicated volume of the port. Seldinger technique used to place a triple lumen catheter and left internal jugular vein and secured with 3-0 nylon suture. Sterile dressing applied. J-wire removed. Each port aspirated with blood an d flushed with saline solution. Incision made in the proximal volar left forearm below the antecubital fossa carried down to the skin and subcutaneous tissue. Antecubital vein noted be a good condition despite intravenous access and the puncture site noting the skin overlying vein on admission. Perforating branch of antecubital vei n dissected free, carried down to the proximal radial artery. Perforating branches clips applied and divided and interrogated. Coronary dilators from a 2 mm to 3 mm coronary dilators were placed witho ut obstruction. I could not place 3.5 mm dilators as the vein was slightly smaller. For this reason , the cephalic vein in the form of the distal part of the incision was clamped, divided and ligated w ith 3-0 silk tie and vein proximally spatulated interrogated with coronary dilators, passing coronary dilators from a 2 mm to a 4 mm dilator up the cephalic vein outflow tract without obstruction. It w as flushed with heparinized saline solution. Patient given 6000 units of heparin intravenously by An esthesia. Proximal brachial, ulnar, and radial arteries were clamped with vascular clamps. Longitud inal arteriotomy made sharply, and the proximal radial artery for a 2.5 to 3 cm anastomosis. Vein ac cordingly spatulated and end vein to side proximal radial artery anastomosis created with continuous suture of 6-0 Prolene. Vascular clamps were released and there is good flow in the fistula. Good he mostasis. Interrogation of cephalic vein outflow upper arm revealed good Doppler signals. Good hemo stasis noted as anesthesia administered 25 mg of protamine intravenously. Subcutaneous tissues appro ximated with 3-0 Monocryl, skin with subdermal 4-0 Monocryl and DermaGlue applied.
[2017-12-27] MEDS: Folic Acid/Vit B Comp W-C PO SCH (17:26)
[2017-12-27] MEDS: Folic Acid 1 MG TAB PO SCH (17:26)
[2017-12-27] MEDS: Amlodipine 10 MG TAB PO SCH (17:26)
[2017-12-27] MEDS: HumaLOG 300 UNITS/3 ML VIAL SC PRN (18:05)
[2017-12-27] MEDS: Atorvastatin Calcium 40 MG TAB PO SCH (21:38)
[2017-12-28 06:09] LABS: #Eosinphils 0.1 thou/uL (0.0-0.7); #Lymphocytes 1.5 thou/uL (1.20-3.40); #Monocytes 0.7 thou/uL (0.11-0.59); #Neutrophils 15.9 thou/uL (1.40-6.50); %Basophils 0.1 % (0.0-1.0); %Eosinophils 0.3 % (0.0-10.0); %Lymphocytes 8.4 % (21.0-51.0); %Monocytes 3.7 % (0.0-10.0); %Neutrophils 87.6 % (42.0-75.0); Mean Corpuscular HGB CONC 31.9 g/dL (32.0-36.0); Mean Corpuscular Hemoglobin 29.8 pg (27.0-31.0); Mean Corpuscular Volume 93.2 fL (78.0-98.0); Mean Platelet Volume 6.8 fL (7.4-10.4); Platelet Count 272 thou/uL (130-400); RBC Distribution Width 15.8 % (11.5-14.5); Red Blood Cell (RBC) Count 2.01 mill/uL (4.20-5.40); White Blood Cell (WBC) Count 18.2 thou/uL (4.8-10.8)
[2017-12-28 06:11] LABS: ALT (SGPT) 13 U/L (8-55); AST (SGOT) 22 U/L (5-34); Albumin 2.4 g/dL (3.4-4.8); Alkaline Phosphatase 68 U/L (40-150); Anion Gap 16 mmol/L (10-20); BUN (Urea Nitrogen) 65 mg/dL (9.8-20.1); Bilirubin, Total 0.4 mg/dL (0.2-1.2); Calc. Creatinine Clearance 10 mL/min (70-130); Calcium 8.1 mg/dL (7.8-10.44); Carbon Dioxide 27 mmol/L (23-31); Chloride 102 mmol/L (98-107); Estimated GFR-MDRD 9; Globulin 3.2 g/dL (2.4-3.5); Glucose 140 mg/dL (83-110); Protein, Total 5.6 g/dL (6.0-8.3); Sodium 141 mmol/L (136-145)
[2017-12-28] MEDS: Epoetin (ESRD) 10,000 UNITS/ML VIAL IVP SCH (09:28)
[2017-12-28] MEDS: Heparin 5,000 UNITS/ML VIAL SC SCH ×2 (09:29→19:52)
[2017-12-28] MEDS: Folic Acid 1 MG TAB PO SCH (09:33)
[2017-12-28] MEDS: Docusate 100 MG CAP PO SCH ×2 (09:33→19:52)
[2017-12-28] MEDS: predniSONE 20 MG TAB PO SCH (09:33)
[2017-12-28] MEDS: Folic Acid/Vit B Comp W-C PO SCH (09:34)
[2017-12-28] MEDS: Amlodipine 10 MG TAB PO SCH (09:34)
[2017-12-28] MEDS: Carvedilol 6.25 MG TAB PO SCH ×2 (09:34→19:49)
[2017-12-28] MEDS: Ferrous Sulfate 325 MG TAB PO SCH (09:35)
[2017-12-28] MEDS ORDERED: traMADol HCl 50 MG TAB PO PRN (09:59)
--- NOTE | 2017-12-28 10:44 | PDOC.PN ---
- Subjective Encounter Start Date: 12/28/17 Encounter Start Time: 07:00 Patient seen and examined for ESRD. No new complaints. No overnight events - Objective Resuscitation Status: Resuscitation Status DNR:Do Not Resuscitate MAR Reviewed: Yes Vital Signs & Weight: Vital Signs (12 hours) Temp Pulse Resp BP BP Pulse Ox 12/28/17 09:34 76 173/74 H 12/28/17 07:51 97.6 F 76 20 173/74 H 90 L 12/28/17 04:00 98.0 F 72 18 162/68 H 92 L 12/28/17 00:00 98.6 F 78 20 125/57 L 97 Weight Admit Weight 155 lb Weight 151 lb 10.848 oz I&O: 12/27/17 12/28/17 12/29/17 06:59 06:59 06:59 Intake Total 710 1230 Output Total 100 351 Balance 610 879 Result Diagrams: 12/28/17 05:40 12/28/17 05:40 Additional Labs: Accuchecks 12/28/17 12/27/17 12/27/17 05:37 20:47 17:15 POC Glucose 143 H 245 H 195 H 12/27/17 11:15 POC Glucose 148 H Phys Exam - Physical Examination Constitutional: NAD HEENT: PERRLA, moist MMs, sclera anicteric Neck: no JVD, supple Respiratory: no wheezing, no rales, no rhonchi Cardiovascular: RRR, no rub SM+ Gastrointestinal: soft, non-tender, no distention, positive bowel sounds Musculoskeletal: no edema, pulses present Neurological: non-focal, normal sensation, moves all 4 limbs Psychiatric: normal affect, A&O x 3 Skin: no rash, normal turgor Dx/Plan (1) Acute renal failure Status: Acute Qualifiers: Acute renal failure type: unspecified Qualified Code(s): N17.9 - Acute kidney failure, unspecified Comment: now ESRD (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 Code(s): N05.9 - UNSP NEPHRITIC SYNDROME WITH UNSPECIFIED MORPHOLOGIC CHANGES; I77.89 - OTHER SPECIFIED DISORDERS OF ARTERIES AND ARTERIOLES Status: Acute (3) ESRD needing dialysis Code(s): N18.6 - END STAGE RENAL DISEASE; Z99.2 - DEPENDENCE ON RENAL DIALYSIS Status: Acute (4) Acute metabolic encephalopathy Code(s): G93.41 - METABOLIC ENCEPHALOPATHY Status: Resolved (5) Anemia of renal disease Code(s): D63.1 - ANEMIA IN CHRONIC KIDNEY DISEASE Status: Acute (6) Vitamin D deficiency Code(s): E55.9 - VITAMIN D DEFICIENCY, UNSPECIFIED Status: Acute (7) Diabetes type 2, controlled Code(s): E11.9 - TYPE 2 DIABETES MELLITUS WITHOUT COMPLICATIONS Status: Chronic (8) Dyslipidemia Code(s): E78.5 - HYPERLIPIDEMIA, UNSPECIFIED Status: Chronic (9) Hearing loss Code(s): H91.90 - UNSPECIFIED HEARING LOSS, UNSPECIFIED EAR Status: Chronic (10) Hypertension Code(s): I10 - ESSENTIAL (PRIMARY) HYPERTENSION Status: Chronic (11) Moderate aortic stenosis Code(s): I35.0 - NONRHEUMATIC AORTIC (VALVE) STENOSIS Status: Chronic (12) Moderate mitral regurgitation Code(s): I34.0 - NONRHEUMATIC MITRAL (VALVE) INSUFFICIENCY Status: Chronic (13) Folate deficiency Code(s): E53.8 - DEFICIENCY OF OTHER SPECIFIED B GROUP VITAMINS Status: Acute - Plan cont current plan of care, PT/OT, social services specialist * based on her overall weakness, she is not safe for discharge to home, she needs more PT/OT and will try to send her to rehab if qualify, otherwise she will benefit from short term SNU placement * Outpt HD is arranged, MWF * medication reviewed as below * symptomatic treatment * today will transfuse PRBC with HD * repeat labs tomorrow. Review of Systems - Review of Systems Eyes: negative: Pain, Vision Change, Conjunctivae Inflammation, Eyelid Inflammation, Redness, Other ENT: negative: Ear Pain, Ear Discharge, Nose Pain, Nose Discharge, Nose Congestion, Mouth Pain, Mouth Swelling, Throat Pain, Throat Swelling, Other Respiratory: negative: Cough, Dry, Shortness of Breath, Hemoptysis, SOB with Excertion, Pleuritic Pain, Sputum, Wheezing Cardiovascular: negative: chest pain, palpitations, orthopnea, paroxysmal nocturnal dyspnea, edema, light headedness, other Gastrointestinal: negative: Nausea, Vomiting, Abdominal Pain, Diarrhea, Constipation, Melena, Hematochezia, Other Genitourinary: negative: Dysuria, Frequency, Incontinence, Hematuria, Retention , Other Musculoskeletal: negative: Neck Pain, Shoulder Pain, Arm Pain, Back Pain, Hand Pain, Leg Pain, Foot Pain, Other Skin: negative: Rash, Lesions, Beto, Bruising, Other - Medications/Allergies Allergies/Adverse Reactions: Allergies Allergy/AdvReac Type Severity Reaction Status Date / Time codeine Allergy Swollen Verified 12/17/17 22:50 Lips Medications: Current Medications Acetaminophen (Tylenol) 650 mg PO Q4H PRN PRN Reason: Headache/Fever or Pain Last Admin: 12/25/17 15:11 Dose: 650 mg Al Hydroxide/Mg Hydroxide (Maalox) 15 ml PO Q4H PRN PRN Reason: Heartburn or Indigestion Alprazolam (Xanax) 0.5 mg PO BIDPRN PRN PRN Reason: Anxiety Last Admin: 12/25/17 11:43 Dose: 0.5 mg Amlodipine Besylate (Norvasc) 10 mg PO DAILY [facility] Last Admin: 12/28/17 09:34 Dose: 10 mg Artificial Tears (Tears Naturale) 0 drop EA EYE PRN PRN PRN Reason: Dry Eyes Atorvastatin Calcium (Lipitor) 80 mg PO [facility] Last Admin: 12/27/17 21:38 Dose: 80 mg Bisacodyl (Dulcolax) 10 mg ND DAILYPRN PRN PRN Reason: Constipation [facility]il[facility] ([facility]) [facility] Last Admin: 12/28/17 09:34 Dose: 12.5 mg Cholecalciferol (Vitamin D3) 2,000 units PO [facility] Last Admin: 12/27/17 21:42 Dose: 2,000 units Dextrose/Water (Dextrose 50%) 25 gm SLOW IVP PRN PRN PRN Reason: Hypoglycemia Diphenhydramine HCl (Benadryl) 25 mg IVP Q6H PRN PRN Reason: Itching Last Admin: 12/25/17 15:11 Dose: 25 mg Docusate Sodium (Colace) 100 mg PO BID [facility] Last Admin: 12/28/17 09:33 Dose: 100 mg Epoetin Chai (Procrit) 10,000 units IVP MWF@0900 [facility] Last Admin: 12/28/17 09:28 Dose: 10,000 units Ferrous Sulfate (Feosol) 325 mg PO [facility] Last Admin: 12/28/17 09:35 Dose: 325 mg Folic Acid (Folvite) 1 mg PO DAILY [facility] Last Admin: 12/28/17 09:33 Dose: 1 mg Glucagon (Glucagon) 1 mg IM PRN PRN PRN Reason: Hypoglycemia Guaifenesin (Robitussin Sf) 200 mg PO Q4H PRN PRN Reason: Cough Guaifenesin/Dextromethorphan (Robitussin Dm) 15 ml PO Q4H PRN PRN Reason: Cough Last Admin: 12/19/17 04:52 Dose: 15 ml Heparin Sodium (Porcine) (Heparin) 5,000 units SC BID [facility] Last Admin: 12/28/17 09:29 Dose: 5,000 units Hydralazine HCl (Apresoline) 10 mg SLOW IVP Q4H PRN PRN Reason: Systolic BP > 180 Dextrose/Water (D5w) 1,000 mls @ 0 mls/hr IV .Q0M PRN; As Directed PRN Reason: Hypoglycemia Insulin Human Lispro (Humalog) 0 units SC .MODERATE SLIDING SC PRN PRN Reason: Moderate Correctional Scale Last Admin: 12/27/17 18:05 Dose: 2 unit Insulin Human Lispro (Humalog) 0 units SC .BEDTIME SLIDING SC PRN PRN Reason: Bedtime Correctional Scale Last Admin: 12/23/17 20:40 Dose: 4 unit Loperamide HCl (Imodium) 2 mg PO PRN PRN PRN Reason: Diarrhea/Loose Stools Loratadine (Claritin) 10 mg PO DAILYPRN PRN PRN Reason: Sinus Symptoms Mineral Oil/White Petrolatum (Eucerin Cream) 0 gm TOP BIDPRN PRN PRN Reason: Dry Skin Ondansetron HCl (Zofran Odt) 4 mg PO Q6H PRN PRN Reason: Nausea/Vomiting Ondansetron HCl (Zofran) 4 mg IVP Q6H PRN PRN Reason: Nausea/Vomiting Pantoprazole Sodium (Protonix) 40 mg PO DAILY [facility] Last Admin: 12/27/17 17:27 Dose: Not Given Phenol (Chloraseptic [place] 180 Ml Bot) 0 ml PO PRN PRN PRN Reason: Sore Throat Prednisone (Prednisone) 60 mg PO [facility] Last Admin: 12/28/17 09:33 Dose: 60 mg Sodium Chloride (Flush - Normal Saline) 10 ml IVF PRN PRN PRN Reason: Saline Flush Last Admin: 12/27/17 22:24 Dose: 10 ml Sodium Chloride (Flush - Normal Saline) 10 ml IV Q12HR [facility] Last Admin: 12/28/17 09:37 Dose: 10 ml Sodium Chloride ([place] Nasal [place] 0.65%) 0 ml EA NARE QIDPRN PRN PRN Reason: Nasal Congestion Temazepam (Restoril) 15 mg PO HSPRN PRN PRN Reason: Insomnia Tramadol HCl (Ultram) 50 mg PO Q8H PRN PRN Reason: Moderate Pain (4-6) Vitamin B Complex/Vit C/Folic Acid (Nephro-Francisco Tablet) 1 tab PO DAILY [facility] Last Admin: 12/28/17 09:34 Dose: 1 tab
--- NOTE | 2017-12-28 11:02 | PRG ---
DATE OF SERVICE: 12/28/2017 SUBJECTIVE: Patient was seen and examined at bedside and overnight events noted. Patient denies any shortness of breath or chest pain or palpitation. No history of nausea or vomitin g or diarrhea or fever or chills or cramps. OBJECTIVE: GENERAL: This is an elderly female, in no apparent distress. VITAL SIGNS: Temperature 97.6, pulse 72, respiratory rate 18, blood pressure 173/74. HEENT: Atraumatic, normocephalic. Oral mucosa is moist NECK: Supple CARDIOVASCULAR: S1S2 heard, Rate and rhythm regular. RESPIRATORY: Clear to auscultation. GASTROINTESTINAL: Abdomen is soft. MUSCULOSKELETAL: No tenderness. No edema. DERMATOLOGIC: No skin rash. NEUROLOGIC: Alert and awake and oriented x3. No focal neurologic deficits. Moving all the extremit ies. PSYCHIATRIC: Mood and affect normal. LABORATORY DATA: Hemoglobin is 6.0, potassium is 4.0, BUN 65, creatinine is 4.4. ASSESSMENT AND PLAN: 1. End-stage renal disease. We will continue on dialysis. 2. Anemia. We will transfuse 2 units to rule out any bleed. 3. ANCA vasculitis. Continue oral steroids, status post Rituxan. 4. Edema, controlled. 5. Hypertension, stable, 6. Hyperkalemia, much better. Plan is to continue on dialysis Sunday, Sunday, and Sunday. Follow with case management for outpa tient placement. We will follow.
[2017-12-28] MEDS ORDERED: Heparin 1,000 UNITS/ML VIAL ONE (11:11)
[2017-12-28] MEDS: HumaLOG 300 UNITS/3 ML VIAL SC PRN ×2 (12:20→19:58)
[2017-12-28] MEDS: Ondansetron ODT 4 MG TAB PO PRN (14:40)
[2017-12-28] MEDS ORDERED: Fentanyl 100 MCG/2 ML VIAL SLOW IVP PRN (19:38)
[2017-12-28] MEDS: Atorvastatin Calcium 40 MG TAB PO SCH (19:46)
--- NOTE | 2017-12-28 21:52 | PRG ---
DATE OF PROGRESS: 12/28/2017 SUBJECTIVE: Ms. Ramos is doing well today after an AV fistula left antecubital area. She has so me swelling, mild hematoma, but I think unexpected. She has a good thrill and bruit. At this point, I will see her as needed. She should exercise her left arm, avoid blood pressures, and IV access in her left arm above and avoid IV access above the wrist and right arm. She should follow up with me in my office in 3-4 weeks. Please call if needed this hospitalization.
[2017-12-29] MEDS: Amlodipine 10 MG TAB PO SCH (08:57)
[2017-12-29] MEDS: Folic Acid/Vit B Comp W-C PO SCH (08:57)
[2017-12-29] MEDS: Ferrous Sulfate 325 MG TAB PO SCH (08:57)
[2017-12-29] MEDS: Carvedilol 6.25 MG TAB PO SCH ×2 (08:58→16:22)
[2017-12-29] MEDS: predniSONE 20 MG TAB PO SCH (08:58)
[2017-12-29] MEDS: Docusate 100 MG CAP PO SCH ×2 (08:58→21:04)
[2017-12-29] MEDS: Folic Acid 1 MG TAB PO SCH (08:58)
[2017-12-29] MEDS: Heparin 5,000 UNITS/ML VIAL SC SCH ×2 (08:59→21:04)
--- NOTE | 2017-12-29 10:10 | PRG ---
DATE OF SERVICE: 12/29/2017 NEPHROLOGY PROGRESS NOTE SUBJECTIVE: Patient was seen and examined at bedside and overnight events noted. Patient denies any shortness of breath or chest pain or palpitation. No history of nausea or vomiting or diarrhea or f ever or chills or cramps. OBJECTIVE: GENERAL: This is an elderly female in no apparent distress. VITAL SIGNS: Temperature 97.9, pulse 80, respiratory rate 18, blood pressure 152/70. HEENT: Atraumatic, normocephalic. Oral mucosa is moist. NECK: Supple. CARDIOVASCULAR: S1, S2 heard. Rate and rhythm regular. RESPIRATORY: Clear to auscultation. GASTROINTESTINAL: Abdomen is soft. MUSCULOSKELETAL: No tenderness. No edema. DERMATOLOGIC: No skin rash. NEUROLOGIC: Alert and awake and oriented x3. No focal neurologic deficits. Moving all the extremiti es. PSYCHIATRIC: Mood and affect normal. LABORATORY DATA: Not done today. ASSESSMENT AND PLAN: 1. End-stage renal disease. We will continue on dialysis as tolerated. 2. Anemia, status post transfusions. 3. ANCA vasculitis, on oral steroids and we will give Rituxan. 4. Edema, controlled. 5. Hypertension, stable. 6. Hyperkalemia, much better. Overall, getting better. Monitor hemoglobin and we will follow.
--- NOTE | 2017-12-29 10:51 | PDOC.PN ---
- Subjective Encounter Start Date: 12/29/17 Encounter Start Time: 07:00 pt needs oxygen, her sats drops, awaiting placement - Objective Resuscitation Status: Resuscitation Status DNR:Do Not Resuscitate MAR Reviewed: Yes Vital Signs & Weight: Vital Signs (12 hours) Pulse BP Pulse Ox 12/29/17 08:57 73 162/72 H 12/29/17 00:31 92 L Weight Admit Weight 155 lb Weight 151 lb 10.848 oz I&O: 12/28/17 12/29/17 12/30/17 06:59 06:59 06:59 Intake Total 1230 720 Output Total 351 100 Balance 879 620 Result Diagrams: 12/28/17 05:40 12/28/17 05:40 Additional Labs: Accuchecks 12/29/17 12/28/17 12/28/17 06:29 19:58 11:45 POC Glucose 127 H 237 H 196 H Phys Exam - Physical Examination Constitutional: NAD HEENT: PERRLA, moist MMs, sclera anicteric Neck: no JVD, supple central line on left Respiratory: no wheezing, no rales, no rhonchi Cardiovascular: RRR, no significant murmur, no rub Gastrointestinal: soft, non-tender, no distention, positive bowel sounds Musculoskeletal: no edema, pulses present Neurological: non-focal, normal sensation, moves all 4 limbs Psychiatric: normal affect, A&O x 3 Skin: no rash, normal turgor Dx/Plan (1) Acute renal failure Status: Acute Qualifiers: Acute renal failure type: unspecified Qualified Code(s): N17.9 - Acute kidney failure, unspecified Comment: now ESRD (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 Code(s): N05.9 - UNSP NEPHRITIC SYNDROME WITH UNSPECIFIED MORPHOLOGIC CHANGES; I77.89 - OTHER SPECIFIED DISORDERS OF ARTERIES AND ARTERIOLES Status: Acute (3) ESRD needing dialysis Code(s): N18.6 - END STAGE RENAL DISEASE; Z99.2 - DEPENDENCE ON RENAL DIALYSIS Status: Acute (4) Acute metabolic encephalopathy Code(s): G93.41 - METABOLIC ENCEPHALOPATHY Status: Resolved (5) Anemia of renal disease Code(s): D63.1 - ANEMIA IN CHRONIC KIDNEY DISEASE Status: Acute (6) Vitamin D deficiency Code(s): E55.9 - VITAMIN D DEFICIENCY, UNSPECIFIED Status: Acute (7) Diabetes type 2, controlled Code(s): E11.9 - TYPE 2 DIABETES MELLITUS WITHOUT COMPLICATIONS Status: Chronic (8) Dyslipidemia Code(s): E78.5 - HYPERLIPIDEMIA, UNSPECIFIED Status: Chronic (9) Hearing loss Code(s): H91.90 - UNSPECIFIED HEARING LOSS, UNSPECIFIED EAR Status: Chronic (10) Hypertension Code(s): I10 - ESSENTIAL (PRIMARY) HYPERTENSION Status: Chronic (11) Moderate aortic stenosis Code(s): I35.0 - NONRHEUMATIC AORTIC (VALVE) STENOSIS Status: Chronic (12) Moderate mitral regurgitation Code(s): I34.0 - NONRHEUMATIC MITRAL (VALVE) INSUFFICIENCY Status: Chronic (13) Folate deficiency Code(s): E53.8 - DEFICIENCY OF OTHER SPECIFIED B GROUP VITAMINS Status: Acute (14) Hypoxia Code(s): R09.02 - HYPOXEMIA Status: Acute - 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 Review of Systems - Review of Systems ENT: negative: Ear Pain, Ear Discharge, Nose Pain, Nose Discharge, Nose Congestion, Mouth Pain, Mouth Swelling, Throat Pain, Throat Swelling, Other Respiratory: negative: Cough, Dry, Shortness of Breath, Hemoptysis, SOB with Excertion, Pleuritic Pain, Sputum, Wheezing Cardiovascular: negative: chest pain, palpitations, orthopnea, paroxysmal nocturnal dyspnea, edema, light headedness, other Gastrointestinal: negative: Nausea, Vomiting, Abdominal Pain, Diarrhea, Constipation, Melena, Hematochezia, Other Genitourinary: negative: Dysuria, Frequency, Incontinence, Hematuria, Retention , Other Musculoskeletal: negative: Neck Pain, Shoulder Pain, Arm Pain, Back Pain, Hand Pain, Leg Pain, Foot Pain, Other Skin: negative: Rash, Lesions, Beto, Bruising, Other - Medications/Allergies Allergies/Adverse Reactions: Allergies Allergy/AdvReac Type Severity Reaction Status Date / Time codeine Allergy Swollen Verified 12/17/17 22:50 Lips Medications: Current Medications Acetaminophen (Tylenol) 650 mg PO Q4H PRN PRN Reason: Headache/Fever or Pain Last Admin: 12/25/17 15:11 Dose: 650 mg Al Hydroxide/Mg Hydroxide (Maalox) 15 ml PO Q4H PRN PRN Reason: Heartburn or Indigestion Alprazolam (Xanax) 0.5 mg PO BIDPRN PRN PRN Reason: Anxiety Last Admin: 12/25/17 11:43 Dose: 0.5 mg Amlodipine Besylate (Norvasc) 10 mg PO DAILY [facility] Last Admin: 12/29/17 08:57 Dose: 10 mg Artificial Tears (Tears Naturale) 0 drop EA EYE PRN PRN PRN Reason: Dry Eyes Atorvastatin Calcium (Lipitor) 80 mg PO [facility] Last Admin: 12/28/17 19:46 Dose: 80 mg Bisacodyl (Dulcolax) 10 mg [place] DAILYPRN PRN PRN Reason: Constipation [facility] Last Admin: 12/29/17 08:58 Dose: 12.5 mg Cholecalciferol (Vitamin D3) 2,000 units PO [facility] Last Admin: 12/28/17 19:48 Dose: 2,000 units Dextrose/Water (Dextrose 50%) 25 gm SLOW IVP PRN PRN PRN Reason: Hypoglycemia Diphenhydramine HCl (Benadryl) 25 mg IVP Q6H PRN PRN Reason: Itching Last Admin: 12/25/17 15:11 Dose: 25 mg Docusate Sodium (Colace) 100 mg PO BID [facility] Last Admin: 12/29/17 08:58 Dose: 100 mg Epoetin Chai (Procrit) 10,000 units IVP MWF@0900 [facility] Last Admin: 12/28/17 09:28 Dose: 10,000 units Fentanyl (Sublimaze) 25 mcg SLOW IVP Q4H PRN PRN Reason: Pain Ferrous Sulfate (Feosol) 325 mg PO QAM-[facility] Last Admin: 12/29/17 08:57 Dose: 325 mg Folic Acid (Folvite) 1 mg PO DAILY [facility] Last Admin: 12/29/17 08:58 Dose: 1 mg Glucagon (Glucagon) 1 mg IM PRN PRN PRN Reason: Hypoglycemia Guaifenesin (Robitussin Sf) 200 mg PO Q4H PRN PRN Reason: Cough Guaifenesin/Dextromethorphan (Robitussin Dm) 15 ml PO Q4H PRN PRN Reason: Cough Last Admin: 12/19/17 04:52 Dose: 15 ml Heparin Sodium (Porcine) (Heparin) 5,000 units SC BID [facility] Last Admin: 12/29/17 08:59 Dose: 5,000 units Hydralazine HCl (Apresoline) 10 mg SLOW IVP Q4H PRN PRN Reason: Systolic BP > 180 Dextrose/Water (D5w) 1,000 mls @ 0 mls/hr IV .Q0M PRN; As Directed PRN Reason: Hypoglycemia Insulin Human Lispro (Humalog) 0 units SC .MODERATE SLIDING SC PRN PRN Reason: Moderate Correctional Scale Last Admin: 12/28/17 12:20 Dose: 2 unit Insulin Human Lispro (Humalog) 0 units SC .BEDTIME SLIDING SC PRN PRN Reason: Bedtime Correctional Scale Last Admin: 12/28/17 19:58 Dose: 2 unit Loperamide HCl (Imodium) 2 mg PO PRN PRN PRN Reason: Diarrhea/Loose Stools Loratadine (Claritin) 10 mg PO DAILYPRN PRN PRN Reason: Sinus Symptoms Mineral Oil/White Petrolatum (Eucerin Cream) 0 gm TOP BIDPRN PRN PRN Reason: Dry Skin Ondansetron HCl (Zofran Odt) 4 mg PO Q6H PRN PRN Reason: Nausea/Vomiting Last Admin: 12/28/17 14:40 Dose: 4 mg Ondansetron HCl (Zofran) 4 mg IVP Q6H PRN PRN Reason: Nausea/Vomiting Pantoprazole Sodium (Protonix) 40 mg PO DAILY [facility] Last Admin: 12/29/17 08:58 Dose: 40 mg Phenol (Chloraseptic [place] 180 Ml Bot) 0 ml PO PRN PRN PRN Reason: Sore Throat Prednisone (Prednisone) 60 mg PO QA-[facility] Last Admin: 12/29/17 08:58 Dose: 60 mg Sodium Chloride (Flush - Normal Saline) 10 ml IVF PRN PRN PRN Reason: Saline Flush Last Admin: 12/27/17 22:24 Dose: 10 ml Sodium Chloride (Flush - Normal Saline) 10 ml IV Q12HR [facility] Last Admin: 12/29/17 08:59 Dose: 10 ml Sodium Chloride ([place] Nasal [place] 0.65%) 0 ml EA NARE QIDPRN PRN PRN Reason: Nasal Congestion Temazepam (Restoril) 15 mg PO HSPRN PRN PRN Reason: Insomnia Tramadol HCl (Ultram) 50 mg PO Q8H PRN PRN Reason: Moderate Pain (4-6) Last Admin: 12/28/17 12:23 Dose: 50 mg Vitamin B Complex/Vit C/Folic Acid (Nephro-Francisco Tablet) 1 tab PO DAILY [facility] Last Admin: 12/29/17 08:57 Dose: 1 tab
[2017-12-29] MEDS: HumaLOG 300 UNITS/3 ML VIAL SC PRN ×3 (12:16→21:12)
--- NOTE | 2017-12-29 16:24 | EKG ---
Test Reason : Blood Pressure : / mmHG Vent. Rate : 063 BPM Atrial Rate : 063 BPM P-R Int : 182 ms QRS Dur : 080 ms QT Int : 412 ms P-R-T Axes : 049 -10 019 degrees QTc Int : 421 ms Sinus rhythm with Premature atrial complexes Moderate voltage criteria for LVH, may be normal variant Borderline ECG Confirmed by CHICHO Case, ELISA ([id number]), industrial editor JAZMYN GONSALES ([id number]) on 12/29/2017 4:23:17 PM Referred By: CHICHO Confirmed By:ELISA VALENTINO M.D.
[2017-12-29] MEDS: Atorvastatin Calcium 40 MG TAB PO SCH (21:04)
[2017-12-30 06:46] LABS: Anion Gap 12 mmol/L (10-20); BUN (Urea Nitrogen) 56 mg/dL (9.8-20.1); Calc. Creatinine Clearance 12 mL/min (70-130); Calcium 8.1 mg/dL (7.8-10.44); Carbon Dioxide 29 mmol/L (23-31); Chloride 99 mmol/L (98-107); Estimated GFR-MDRD 11; Glucose 103 mg/dL (83-110); Potassium 3.7 mmol/L (3.5-5.1); Sodium 136 mmol/L (136-145)
[2017-12-30 07:42] LABS: Band 1 % (5-11); Eosinophils 1 % (0-10); Hemoglobin 8.2 g/dL (12.0-16.0); Lymphocytes 16 % (21-51); MDiff Complete? YES; Mean Corpuscular HGB CONC 33.5 g/dL (32.0-36.0); Mean Corpuscular Hemoglobin 30.3 pg (27.0-31.0); Mean Corpuscular Volume 90.3 fL (78.0-98.0); Mean Platelet Volume 7.4 fL (7.4-10.4); Monocytes 5 % (0-10); Neutrophil 77 % (42-75); Platelet Count 208 thou/uL (130-400); Red Blood Cell (RBC) Count 2.69 mill/uL (4.20-5.40); White Blood Cell (WBC) Count 15.5 thou/uL (4.8-10.8)
[2017-12-30] MEDS: Folic Acid/Vit B Comp W-C PO SCH (08:20)
[2017-12-30] MEDS: Heparin 5,000 UNITS/ML VIAL SC SCH ×2 (08:20→21:00)
[2017-12-30] MEDS: predniSONE 20 MG TAB PO SCH (08:21)
[2017-12-30] MEDS: Folic Acid 1 MG TAB PO SCH (08:21)
[2017-12-30] MEDS: Amlodipine 10 MG TAB PO SCH (08:21)
[2017-12-30] MEDS: Docusate 100 MG CAP PO SCH ×2 (08:21→20:59)
[2017-12-30] MEDS: Ferrous Sulfate 325 MG TAB PO SCH (08:21)
[2017-12-30] MEDS: Carvedilol 25 MG TAB PO SCH ×2 (08:21→17:01)
--- NOTE | 2017-12-30 09:56 | PDOC.PN ---
- Subjective Encounter Start Date: 12/30/17 Encounter Start Time: 07:00 Patient seen and examined for esrd. No new complaints. No overnight events - Objective Resuscitation Status: Resuscitation Status DNR:Do Not Resuscitate MAR Reviewed: Yes Vital Signs & Weight: Vital Signs (12 hours) Temp Pulse Resp BP Pulse Ox 12/30/17 08:21 77 12/30/17 08:00 98.0 F 82 16 133/63 96 12/30/17 01:09 96 Weight Admit Weight 155 lb Weight 151 lb 10.848 oz I&O: 12/29/17 12/30/17 12/31/17 06:59 06:59 06:59 Intake Total 720 1020 Output Total 100 Balance 620 1020 Result Diagrams: 12/30/17 06:15 12/30/17 06:15 Additional Labs: Accuchecks 12/30/17 12/29/17 12/29/17 06:14 21:12 16:29 POC Glucose 107 245 H 189 H 12/29/17 11:28 POC Glucose 181 H Phys Exam - Physical Examination Constitutional: NAD HEENT: PERRLA, moist MMs, sclera anicteric Neck: no JVD, supple Respiratory: no wheezing, no rales, no rhonchi Cardiovascular: RRR, no rub SM+ Gastrointestinal: soft, non-tender, no distention Musculoskeletal: no edema, pulses present Neurological: non-focal, normal sensation, moves all 4 limbs Psychiatric: normal affect, A&O x 3 Skin: no rash, normal turgor Dx/Plan (1) Acute renal failure Status: Acute Qualifiers: Acute renal failure type: unspecified Qualified Code(s): N17.9 - Acute kidney failure, unspecified Comment: now ESRD (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 Code(s): N05.9 - UNSP NEPHRITIC SYNDROME WITH UNSPECIFIED MORPHOLOGIC CHANGES; I77.89 - OTHER SPECIFIED DISORDERS OF ARTERIES AND ARTERIOLES Status: Acute (3) ESRD needing dialysis Code(s): N18.6 - END STAGE RENAL DISEASE; Z99.2 - DEPENDENCE ON RENAL DIALYSIS Status: Acute (4) Acute metabolic encephalopathy Code(s): G93.41 - METABOLIC ENCEPHALOPATHY Status: Resolved (5) Anemia of renal disease Code(s): D63.1 - ANEMIA IN CHRONIC KIDNEY DISEASE Status: Acute (6) Vitamin D deficiency Code(s): E55.9 - VITAMIN D DEFICIENCY, UNSPECIFIED Status: Acute (7) Diabetes type 2, controlled Code(s): E11.9 - TYPE 2 DIABETES MELLITUS WITHOUT COMPLICATIONS Status: Chronic (8) Dyslipidemia Code(s): E78.5 - HYPERLIPIDEMIA, UNSPECIFIED Status: Chronic (9) Hearing loss Code(s): H91.90 - UNSPECIFIED HEARING LOSS, UNSPECIFIED EAR Status: Chronic (10) Hypertension Code(s): I10 - ESSENTIAL (PRIMARY) HYPERTENSION Status: Chronic (11) Moderate aortic stenosis Code(s): I35.0 - NONRHEUMATIC AORTIC (VALVE) STENOSIS Status: Chronic (12) Moderate mitral regurgitation Code(s): I34.0 - NONRHEUMATIC MITRAL (VALVE) INSUFFICIENCY Status: Chronic (13) Folate deficiency Code(s): E53.8 - DEFICIENCY OF OTHER SPECIFIED B GROUP VITAMINS Status: Acute (14) Hypoxia Code(s): R09.02 - HYPOXEMIA Status: Acute - 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 Review of Systems - Review of Systems Eyes: negative: Pain, Vision Change, Conjunctivae Inflammation, Eyelid Inflammation, Redness, Other ENT: negative: Ear Pain, Ear Discharge, Nose Pain, Nose Discharge, Nose Congestion, Mouth Pain, Mouth Swelling, Throat Pain, Throat Swelling, Other Respiratory: negative: Cough, Dry, Shortness of Breath, Hemoptysis, SOB with Excertion, Pleuritic Pain, Sputum, Wheezing Cardiovascular: negative: chest pain, palpitations, orthopnea, paroxysmal nocturnal dyspnea, edema, light headedness, other Gastrointestinal: negative: Nausea, Vomiting, Abdominal Pain, Diarrhea, Constipation, Melena, Hematochezia, Other Genitourinary: negative: Dysuria, Frequency, Incontinence, Hematuria, Retention , Other Musculoskeletal: negative: Neck Pain, Shoulder Pain, Arm Pain, Back Pain, Hand Pain, Leg Pain, Foot Pain, Other Skin: negative: Rash, Lesions, Beto, Bruising, Other - Medications/Allergies Allergies/Adverse Reactions: Allergies Allergy/AdvReac Type Severity Reaction Status Date / Time codeine Allergy Swollen Verified 12/17/17 22:50 Lips Medications: Current Medications Acetaminophen (Tylenol) 650 mg PO Q4H PRN PRN Reason: Headache/Fever or Pain Last Admin: 12/25/17 15:11 Dose: 650 mg Al Hydroxide/Mg Hydroxide (Maalox) 15 ml PO Q4H PRN PRN Reason: Heartburn or Indigestion Alprazolam (Xanax) 0.5 mg PO BIDPRN PRN PRN Reason: Anxiety Last Admin: 12/25/17 11:43 Dose: 0.5 mg Amlodipine Besylate (Norvasc) 10 mg PO DAILY [facility] Last Admin: 12/30/17 08:21 Dose: 10 mg Artificial Tears (Tears Naturale) 0 drop EA EYE PRN PRN PRN Reason: Dry Eyes Atorvastatin Calcium (Lipitor) 80 mg PO [facility] Last Admin: 12/29/17 21:04 Dose: 80 mg Bisacodyl (Dulcolax) 10 mg [place] DAILYPRN PRN PRN Reason: Constipation [facility]) [facility] Last Admin: 12/30/17 08:21 Dose: 25 mg Cholecalciferol (Vitamin D3) 2,000 units PO [facility] Last Admin: 12/29/17 21:04 Dose: 2,000 units Dextrose/Water (Dextrose 50%) 25 gm SLOW IVP PRN PRN PRN Reason: Hypoglycemia Diphenhydramine HCl (Benadryl) 25 mg IVP Q6H PRN PRN Reason: Itching Last Admin: 12/25/17 15:11 Dose: 25 mg Docusate Sodium (Colace) 100 mg PO BID [facility] Last Admin: 12/30/17 08:21 Dose: 100 mg Epoetin Chai (Procrit) 10,000 units IVP MWF@0900 [facility] Last Admin: 12/28/17 09:28 Dose: 10,000 units Fentanyl (Sublimaze) 25 mcg SLOW IVP Q4H PRN PRN Reason: Pain Ferrous Sulfate (Feosol) 325 mg PO [facility] Last Admin: 12/30/17 08:21 Dose: 325 mg Folic Acid (Folvite) 1 mg PO DAILY [facility] Last Admin: 12/30/17 08:21 Dose: 1 mg Glucagon (Glucagon) 1 mg IM PRN PRN PRN Reason: Hypoglycemia Guaifenesin (Robitussin Sf) 200 mg PO Q4H PRN PRN Reason: Cough Guaifenesin/Dextromethorphan (Robitussin Dm) 15 ml PO Q4H PRN PRN Reason: Cough Last Admin: 12/19/17 04:52 Dose: 15 ml Heparin Sodium (Porcine) (Heparin) 5,000 units SC BID [facility] Last Admin: 12/30/17 08:20 Dose: 5,000 units Hydralazine HCl (Apresoline) 10 mg SLOW IVP Q4H PRN PRN Reason: Systolic BP > 180 Dextrose/Water (D5w) 1,000 mls @ 0 mls/hr IV .Q0M PRN; As Directed PRN Reason: Hypoglycemia Insulin Human Lispro (Humalog) 0 units SC .MODERATE SLIDING SC PRN PRN Reason: Moderate Correctional Scale Last Admin: 12/29/17 16:29 Dose: 2 unit Insulin Human Lispro (Humalog) 0 units SC .BEDTIME SLIDING SC PRN PRN Reason: Bedtime Correctional Scale Last Admin: 12/29/17 21:12 Dose: 2 unit Loperamide HCl (Imodium) 2 mg PO PRN PRN PRN Reason: Diarrhea/Loose Stools Loratadine (Claritin) 10 mg PO DAILYPRN PRN PRN Reason: Sinus Symptoms Mineral Oil/White Petrolatum (Eucerin Cream) 0 gm TOP BIDPRN PRN PRN Reason: Dry Skin Ondansetron HCl (Zofran Odt) 4 mg PO Q6H PRN PRN Reason: Nausea/Vomiting Last Admin: 12/28/17 14:40 Dose: 4 mg Ondansetron HCl (Zofran) 4 mg IVP Q6H PRN PRN Reason: Nausea/Vomiting Pantoprazole Sodium (Protonix) 40 mg PO DAILY [facility] Last Admin: 12/30/17 08:21 Dose: 40 mg Phenol (Chloraseptic [place] 180 Ml Bot) 0 ml PO PRN PRN PRN Reason: Sore Throat Prednisone (Prednisone) 60 mg PO QA-[facility] Last Admin: 12/30/17 08:21 Dose: 60 mg Sodium Chloride (Flush - Normal Saline) 10 ml IVF PRN PRN PRN Reason: Saline Flush Last Admin: 12/27/17 22:24 Dose: 10 ml Sodium Chloride (Flush - Normal Saline) 10 ml IV Q12HR [facility] Last Admin: 12/30/17 08:20 Dose: 10 ml Sodium Chloride ([place] Nasal [place] 0.65%) 0 ml EA NARE QIDPRN PRN PRN Reason: Nasal Congestion Temazepam (Restoril) 15 mg PO HSPRN PRN PRN Reason: Insomnia Tramadol HCl (Ultram) 50 mg PO Q8H PRN PRN Reason: Moderate Pain (4-6) Last Admin: 12/28/17 12:23 Dose: 50 mg Vitamin B Complex/Vit C/Folic Acid (Nephro-Francisco Tablet) 1 tab PO DAILY [facility] Last Admin: 12/30/17 08:20 Dose: 1 tab
--- NOTE | 2017-12-30 12:59 | PRG ---
DATE OF SERVICE: 12/30/2017 SUBJECTIVE: Patient was seen and examined at bedside and overnight events noted. Patient denies any shortness of breath or chest pain or palpitation. No history of nausea or vomitin g or diarrhea or fever or chills or cramps. OBJECTIVE: GENERAL: This is an elderly white female, in no apparent distress. VITAL SIGNS: Temperature 98.7, pulse 82, respiratory rate 16, blood pressure 133/63. HEENT: Atraumatic, normocephalic. Oral mucosa is moist. NECK: Supple. CARDIOVASCULAR: S1 and S2 heard. Rate and rhythm regular. RESPIRATORY: Clear to auscultation. GASTROINTESTINAL: Abdomen is soft. MUSCULOSKELETAL: No tenderness. No edema. DERMATOLOGIC: No skin rash. NEUROLOGIC: Alert and awake and oriented x3. No focal neurologic deficits. Moving all the extremit ies. PSYCHIATRIC: Mood and affect normal. LABORATORY DATA: Potassium is 3.7, BUN 56, creatinine 3.7. ASSESSMENT AND PLAN: 1. End-stage renal disease, on hemodialysis. Plan is to continue dialysis Sunday, Sunday, and . The patient is accepted for outpatient dialysis on Sunday, Sunday, and Sunday. Plan is to send her to rehab per primary team. 2. Anemia, status post transfusion. Monitor hemoglobin. Hemoglobin is 8.2 today. We will check in the morning. 3. ANCA vasculitis, status post IV steroids x3 and currently on oral steroids at 60 mg per day (00:40). She was also given 1 dose of Rituxan. Next dose is due for this 01/01/2018. [facility] e inpatient, we will give another dose. The patient needs to follow up with Rheumatology as outpatie nt for continuation of Rituxan. She needs 3 more doses weekly. 4. Edema, controlled. 5. Hypertension, stable. 6. Hyperkalemia, better. Overall, the patient is tolerating dialysis well 7. Anemia is better after transfusion, rule out any bleed. We will follow. Continue steroids.
[2017-12-30] MEDS: Ondansetron ODT 4 MG TAB PO PRN (15:34)
[2017-12-30] MEDS: HumaLOG 300 UNITS/3 ML VIAL SC PRN (17:02)
[2017-12-30] MEDS: Atorvastatin Calcium 40 MG TAB PO SCH (20:59)
[2017-12-31 06:08] LABS: Anion Gap 15 mmol/L (10-20); BUN (Urea Nitrogen) 79 mg/dL (9.8-20.1); Calc. Creatinine Clearance 10 mL/min (70-130); Calcium 7.9 mg/dL (7.8-10.44); Carbon Dioxide 27 mmol/L (23-31); Chloride 98 mmol/L (98-107); Estimated GFR-MDRD 9; Glucose 162 mg/dL (83-110); Potassium 4.1 mmol/L (3.5-5.1); Sodium 136 mmol/L (136-145)
[2017-12-31 06:41] LABS: Band 2 % (5-11); Hemoglobin 8.2 g/dL (12.0-16.0); Lymphocytes 13 % (21-51); MDiff Complete? YES; Mean Corpuscular HGB CONC 33.4 g/dL (32.0-36.0); Mean Corpuscular Volume 89.8 fL (78.0-98.0); Mean Platelet Volume 7.1 fL (7.4-10.4); Metamyelocyte 3 % (0-0); Monocytes 4 % (0-10); Neutrophil 78 % (42-75); Platelet Count 218 thou/uL (130-400); RBC Distribution Width 14.9 % (11.5-14.5); Red Blood Cell (RBC) Count 2.74 mill/uL (4.20-5.40); White Blood Cell (WBC) Count 12.6 thou/uL (4.8-10.8)
[2017-12-31] MEDS: Folic Acid/Vit B Comp W-C PO SCH (08:00)
[2017-12-31] MEDS: Docusate 100 MG CAP PO SCH ×2 (08:00→20:49)
[2017-12-31] MEDS: Carvedilol 25 MG TAB PO SCH ×2 (08:00→17:22)
[2017-12-31] MEDS: predniSONE 20 MG TAB PO SCH (08:00)
[2017-12-31] MEDS: Folic Acid 1 MG TAB PO SCH (08:00)
[2017-12-31] MEDS: Heparin 5,000 UNITS/ML VIAL SC SCH ×2 (08:00→20:50)
[2017-12-31] MEDS: Amlodipine 10 MG TAB PO SCH (08:01)
--- NOTE | 2017-12-31 08:55 | PDOC.PN ---
- Subjective Encounter Start Date: 12/31/17 Encounter Start Time: 07:00 Patient seen and examined for anca vasculitis. No new complaints. No overnight events - Objective Resuscitation Status: Resuscitation Status DNR:Do Not Resuscitate MAR Reviewed: Yes Vital Signs & Weight: Vital Signs (12 hours) Temp Pulse Resp BP Pulse Ox 12/31/17 08:01 69 12/31/17 07:14 97.9 F 69 16 180/76 H 90 L 12/31/17 02:48 95 Weight Admit Weight 155 lb Weight 151 lb 10.848 oz I&O: 12/30/17 12/31/17 01/01/18 06:59 06:59 06:59 Intake Total 1020 1310 Output Total 100 Balance 1020 1210 Result Diagrams: 12/31/17 05:20 12/31/17 05:20 Additional Labs: Accuchecks 12/31/17 12/30/17 12/30/17 05:17 21:24 16:26 POC Glucose 178 H 256 H 251 H 12/30/17 11:33 POC Glucose 155 H Phys Exam - Physical Examination Constitutional: NAD HEENT: PERRLA, moist MMs, sclera anicteric Neck: no JVD, supple Respiratory: no wheezing, no rales, no rhonchi reduced air entry at base Cardiovascular: RRR, no rub SM+ aortic area Gastrointestinal: soft, non-tender, no distention, positive bowel sounds Musculoskeletal: no edema, pulses present Neurological: non-focal, normal sensation, moves all 4 limbs Psychiatric: normal affect, A&O x 3 Skin: no rash, normal turgor Dx/Plan (1) Acute renal failure Status: Acute Qualifiers: Acute renal failure type: unspecified Qualified Code(s): N17.9 - Acute kidney failure, unspecified Comment: now ESRD (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 Code(s): N05.9 - UNSP NEPHRITIC SYNDROME WITH UNSPECIFIED MORPHOLOGIC CHANGES; I77.89 - OTHER SPECIFIED DISORDERS OF ARTERIES AND ARTERIOLES Status: Acute (3) ESRD needing dialysis Code(s): N18.6 - END STAGE RENAL DISEASE; Z99.2 - DEPENDENCE ON RENAL DIALYSIS Status: Acute (4) Acute metabolic encephalopathy Code(s): G93.41 - METABOLIC ENCEPHALOPATHY Status: Resolved (5) Anemia of renal disease Code(s): D63.1 - ANEMIA IN CHRONIC KIDNEY DISEASE Status: Acute (6) Vitamin D deficiency Code(s): E55.9 - VITAMIN D DEFICIENCY, UNSPECIFIED Status: Acute (7) Diabetes type 2, controlled Code(s): E11.9 - TYPE 2 DIABETES MELLITUS WITHOUT COMPLICATIONS Status: Chronic (8) Dyslipidemia Code(s): E78.5 - HYPERLIPIDEMIA, UNSPECIFIED Status: Chronic (9) Hearing loss Code(s): H91.90 - UNSPECIFIED HEARING LOSS, UNSPECIFIED EAR Status: Chronic (10) Hypertension Code(s): I10 - ESSENTIAL (PRIMARY) HYPERTENSION Status: Chronic (11) Moderate aortic stenosis Code(s): I35.0 - NONRHEUMATIC AORTIC (VALVE) STENOSIS Status: Chronic (12) Moderate mitral regurgitation Code(s): I34.0 - NONRHEUMATIC MITRAL (VALVE) INSUFFICIENCY Status: Chronic (13) Folate deficiency Code(s): E53.8 - DEFICIENCY OF OTHER SPECIFIED B GROUP VITAMINS Status: Acute (14) Hypoxia Code(s): R09.02 - HYPOXEMIA Status: Acute - Plan cont current plan of care, 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 Review of Systems - Review of Systems Eyes: negative: Pain, Vision Change, Conjunctivae Inflammation, Eyelid Inflammation, Redness, Other ENT: negative: Ear Pain, Ear Discharge, Nose Pain, Nose Discharge, Nose Congestion, Mouth Pain, Mouth Swelling, Throat Pain, Throat Swelling, Other Respiratory: negative: Cough, Dry, Shortness of Breath, Hemoptysis, SOB with Excertion, Pleuritic Pain, Sputum, Wheezing Cardiovascular: negative: chest pain, palpitations, orthopnea, paroxysmal nocturnal dyspnea, edema, light headedness, other Gastrointestinal: negative: Nausea, Vomiting, Abdominal Pain, Diarrhea, Constipation, Melena, Hematochezia, Other Genitourinary: negative: Dysuria, Frequency, Incontinence, Hematuria, Retention , Other Musculoskeletal: negative: Neck Pain, Shoulder Pain, Arm Pain, Back Pain, Hand Pain, Leg Pain, Foot Pain, Other - Medications/Allergies Allergies/Adverse Reactions: Allergies Allergy/AdvReac Type Severity Reaction Status Date / Time codeine Allergy Swollen Verified 12/17/17 22:50 Lips Medications: Current Medications Acetaminophen (Tylenol) 650 mg PO Q4H PRN PRN Reason: Headache/Fever or Pain Last Admin: 12/25/17 15:11 Dose: 650 mg Al Hydroxide/Mg Hydroxide (Maalox) 15 ml PO Q4H PRN PRN Reason: Heartburn or Indigestion Amlodipine Besylate (Norvasc) 10 mg PO DAILY [facility] Last Admin: 12/31/17 08:01 Dose: 10 mg Artificial Tears (Tears Naturale) 0 drop EA EYE PRN PRN PRN Reason: Dry Eyes Atorvastatin Calcium (Lipitor) 80 mg PO [facility] Last Admin: 12/30/17 20:59 Dose: 80 mg Bisacodyl (Dulcolax) 10 mg [place] DAILYPRN PRN PRN Reason: Constipation Car[facility]il[facility] ([facility]) [facility] Last Admin: 12/31/17 08:00 Dose: 25 mg Cholecalciferol (Vitamin D3) 2,000 units PO [facility] Last Admin: 12/30/17 20:59 Dose: 2,000 units Dextrose/Water (Dextrose 50%) 25 gm SLOW IVP PRN PRN PRN Reason: Hypoglycemia Diphenhydramine HCl (Benadryl) 25 mg IVP Q6H PRN PRN Reason: Itching Last Admin: 12/25/17 15:11 Dose: 25 mg Docusate Sodium (Colace) 100 mg PO BID [facility] Last Admin: 12/31/17 08:00 Dose: 100 mg Epoetin Chai (Procrit) 10,000 units IVP MWF@0900 [facility] Last Admin: 12/28/17 09:28 Dose: 10,000 units Fentanyl (Sublimaze) 25 mcg SLOW IVP Q4H PRN PRN Reason: Pain Last Admin: 12/30/17 23:56 Dose: 25 mcg Ferrous Sulfate (Feosol) 325 mg PO QAM[facility] Last Admin: 12/30/17 08:21 Dose: 325 mg Folic Acid (Folvite) 1 mg PO DAILY [facility] Last Admin: 12/31/17 08:00 Dose: 1 mg Glucagon (Glucagon) 1 mg IM PRN PRN PRN Reason: Hypoglycemia Guaifenesin (Robitussin Sf) 200 mg PO Q4H PRN PRN Reason: Cough Guaifenesin/Dextromethorphan (Robitussin Dm) 15 ml PO Q4H PRN PRN Reason: Cough Last Admin: 12/19/17 04:52 Dose: 15 ml Heparin Sodium (Porcine) (Heparin) 5,000 units SC BID [facility] Last Admin: 12/31/17 08:00 Dose: 5,000 units Hydralazine HCl (Apresoline) 10 mg SLOW IVP Q4H PRN PRN Reason: Systolic BP > 180 Dextrose/Water (D5w) 1,000 mls @ 0 mls/hr IV .Q0M PRN; As Directed PRN Reason: Hypoglycemia Insulin Human Lispro (Humalog) 0 units SC .MODERATE SLIDING SC PRN PRN Reason: Moderate Correctional Scale Last Admin: 12/30/17 17:02 Dose: 4 unit Insulin Human Lispro (Humalog) 0 units SC .BEDTIME SLIDING SC PRN PRN Reason: Bedtime Correctional Scale Last Admin: 12/29/17 21:12 Dose: 2 unit Loperamide HCl (Imodium) 2 mg PO PRN PRN PRN Reason: Diarrhea/Loose Stools Loratadine (Claritin) 10 mg PO DAILYPRN PRN PRN Reason: Sinus Symptoms Mineral Oil/White Petrolatum (Eucerin Cream) 0 gm TOP BIDPRN PRN PRN Reason: Dry Skin Ondansetron HCl (Zofran Odt) 4 mg PO Q6H PRN PRN Reason: Nausea/Vomiting Last Admin: 12/30/17 15:34 Dose: 4 mg Ondansetron HCl (Zofran) 4 mg IVP Q6H PRN PRN Reason: Nausea/Vomiting Pantoprazole Sodium (Protonix) 40 mg PO DAILY [facility] Last Admin: 12/31/17 08:00 Dose: 40 mg Phenol (Chloraseptic [place] 180 Ml Bot) 0 ml PO PRN PRN PRN Reason: Sore Throat Prednisone (Prednisone) 60 mg PO QA-[facility] Last Admin: 12/31/17 08:00 Dose: 60 mg Sodium Chloride (Flush - Normal Saline) 10 ml IVF PRN PRN PRN Reason: Saline Flush Last Admin: 12/27/17 22:24 Dose: 10 ml Sodium Chloride (Flush - Normal Saline) 10 ml IV Q12HR [facility] Last Admin: 12/30/17 21:00 Dose: 10 ml Sodium Chloride ([place] Nasal [place] 0.65%) 0 ml EA NARE QIDPRN PRN PRN Reason: Nasal Congestion Temazepam (Restoril) 15 mg PO HSPRN PRN PRN Reason: Insomnia Tramadol HCl (Ultram) 50 mg PO Q8H PRN PRN Reason: Moderate Pain (4-6) Last Admin: 12/28/17 12:23 Dose: 50 mg Vitamin B Complex/Vit C/Folic Acid (Nephro-Francisco Tablet) 1 tab PO DAILY [facility] Last Admin: 12/31/17 08:00 Dose: 1 tab
--- NOTE | 2017-12-31 11:11 | PRG ---
DATE OF SERVICE: 12/31/2017 SUBJECTIVE: Patient was seen and examined at bedside and overnight events noted. Patient denies any shortness of breath or chest pain or palpitation. No history of nausea or vomiting or diarrhea or f ever or chills or cramps. OBJECTIVE: GENERAL: This is a well-built female in no apparent distress. VITAL SIGNS: Temperature 97.9, pulse 67, respiratory rate 16, and blood pressure 118/76. HEENT: Atraumatic, normocephalic. Oral mucosa is moist. NECK: Supple. CARDIOVASCULAR: S1, S2 heard. Rate and rhythm regular. RESPIRATORY: Clear to auscultation. GASTROINTESTINAL: Abdomen is soft. MUSCULOSKELETAL: No tenderness. No edema. DERMATOLOGIC: No skin rash. NEUROLOGIC: Alert and awake and oriented x3. No focal neurologic deficits. Moving all the extremiti es. PSYCHIATRIC: Mood and affect normal. LABORATORY DATA: Potassium is 4.1, BUN 79, creatinine is 4.7. ASSESSMENT AND PLAN: 1. End-stage renal disease. Continue on hemodialysis. 2. ANCA vasculitis. We would recommend giving Rituxan to patient tomorrow before discharge. 3. Anemia, status post transfusion. Monitor labs including CBC given the Rituxan. 4. Edema controlled. 5. Hypertension, stable. 6. Hyperkalemia, better. We will monitor CBC given she is on Rituxan and we will follow up hemoglobin if stable.
[2017-12-31] MEDS ORDERED: Heparin 10,000 UNITS/ 10 ML VIAL ONE (12:00)
[2017-12-31] MEDS: Epoetin (ESRD) 10,000 UNITS/ML VIAL IVP SCH (14:00)
[2017-12-31] MEDS: Ferrous Sulfate 325 MG TAB PO SCH (15:15)
[2017-12-31] MEDS: Atorvastatin Calcium 40 MG TAB PO SCH (20:49)
[2018-01-01 05:26] LABS: #Eosinphils 0.3 thou/uL (0.0-0.7); #Lymphocytes 1.6 thou/uL (1.20-3.40); #Neutrophils 10.8 thou/uL (1.40-6.50); %Basophils 0.2 % (0.0-1.0); %Eosinophils 1.9 % (0.0-10.0); %Lymphocytes 11.6 % (21.0-51.0); %Monocytes 7.1 % (0.0-10.0); %Neutrophils 79.3 % (42.0-75.0); Hemoglobin 8.8 g/dL (12.0-16.0); Mean Corpuscular HGB CONC 33.6 g/dL (32.0-36.0); Mean Corpuscular Hemoglobin 30.7 pg (27.0-31.0); Mean Corpuscular Volume 91.5 fL (78.0-98.0); Mean Platelet Volume 7.5 fL (7.4-10.4); Platelet Count 226 thou/uL (130-400); RBC Distribution Width 15.1 % (11.5-14.5); Red Blood Cell (RBC) Count 2.87 mill/uL (4.20-5.40); White Blood Cell (WBC) Count 13.6 thou/uL (4.8-10.8)
[2018-01-01 06:01] LABS: ALT (SGPT) 13 U/L (8-55); AST (SGOT) 47 U/L (5-34); Albumin 2.5 g/dL (3.4-4.8); Alkaline Phosphatase 68 U/L (40-150); Anion Gap 12 mmol/L (10-20); BUN (Urea Nitrogen) 39 mg/dL (9.8-20.1); Calc. Creatinine Clearance 17 mL/min (70-130); Calcium 8.1 mg/dL (7.8-10.44); Carbon Dioxide 30 mmol/L (23-31); Chloride 99 mmol/L (98-107); Estimated GFR-MDRD 16; Globulin 3.1 g/dL (2.4-3.5); Glucose 85 mg/dL (83-110); Potassium 3.6 mmol/L (3.5-5.1); Protein, Total 5.6 g/dL (6.0-8.3); Sodium 137 mmol/L (136-145)
[2018-01-01 07:53] VITALS: BP 158/66; TEMP 97.7
[2018-01-01] MEDS: Heparin 5,000 UNITS/ML VIAL SC SCH (10:19)
[2018-01-01] MEDS: Amlodipine 10 MG TAB PO SCH (10:20)
[2018-01-01] MEDS: predniSONE 20 MG TAB PO SCH (10:20)
[2018-01-01] MEDS: Docusate 100 MG CAP PO SCH (10:20)
[2018-01-01] MEDS: Ferrous Sulfate 325 MG TAB PO SCH (10:21)
[2018-01-01] MEDS: Carvedilol 25 MG TAB PO SCH (10:21)
[2018-01-01] MEDS: Folic Acid 1 MG TAB PO SCH (10:21)
[2018-01-01] MEDS: Folic Acid/Vit B Comp W-C PO SCH (10:22)
--- NOTE | 2018-01-01 10:31 | PDOC.PN ---
- Subjective Encounter Start Date: 01/01/18 Encounter Start Time: 07:00 Patient seen and examined. No new complaints. No overnight events - Objective Resuscitation Status: Resuscitation Status DNR:Do Not Resuscitate MAR Reviewed: Yes Vital Signs & Weight: Vital Signs (12 hours) Temp Pulse Resp BP BP Pulse Ox 01/01/18 10:20 69 158/66 H 01/01/18 07:51 97.7 F 69 16 158/66 H 91 L Weight Admit Weight 155 lb Weight 151 lb 10.848 oz I&O: 12/31/17 01/01/18 01/02/18 06:59 06:59 06:59 Intake Total 1310 1410 Output Total 100 50 Balance 1210 1360 Result Diagrams: 01/01/18 04:40 01/01/18 04:40 Additional Labs: Accuchecks 01/01/18 12/31/17 12/31/17 05:38 20:53 15:18 POC Glucose 85 156 H 152 H 12/31/17 11:21 POC Glucose 156 H Phys Exam - Physical Examination Constitutional: NAD HEENT: PERRLA, moist MMs, sclera anicteric Neck: no JVD, supple Respiratory: no wheezing, no rales, no rhonchi Cardiovascular: RRR, no significant murmur, no rub Gastrointestinal: soft, non-tender, no distention, positive bowel sounds Musculoskeletal: no edema, pulses present Neurological: non-focal, normal sensation, moves all 4 limbs Psychiatric: normal affect Skin: no rash, normal turgor Dx/Plan (1) Acute renal failure Status: Acute Qualifiers: Acute renal failure type: unspecified Qualified Code(s): N17.9 - Acute kidney failure, unspecified Comment: now ESRD (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 Code(s): N05.9 - UNSP NEPHRITIC SYNDROME WITH UNSPECIFIED MORPHOLOGIC CHANGES; I77.89 - OTHER SPECIFIED DISORDERS OF ARTERIES AND ARTERIOLES Status: Acute (3) ESRD needing dialysis Code(s): N18.6 - END STAGE RENAL DISEASE; Z99.2 - DEPENDENCE ON RENAL DIALYSIS Status: Acute (4) Acute metabolic encephalopathy Code(s): G93.41 - METABOLIC ENCEPHALOPATHY Status: Resolved (5) Anemia of renal disease Code(s): D63.1 - ANEMIA IN CHRONIC KIDNEY DISEASE Status: Acute (6) Vitamin D deficiency Code(s): E55.9 - VITAMIN D DEFICIENCY, UNSPECIFIED Status: Acute (7) Diabetes type 2, controlled Code(s): E11.9 - TYPE 2 DIABETES MELLITUS WITHOUT COMPLICATIONS Status: Chronic (8) Dyslipidemia Code(s): E78.5 - HYPERLIPIDEMIA, UNSPECIFIED Status: Chronic (9) Hearing loss Code(s): H91.90 - UNSPECIFIED HEARING LOSS, UNSPECIFIED EAR Status: Chronic (10) Hypertension Code(s): I10 - ESSENTIAL (PRIMARY) HYPERTENSION Status: Chronic (11) Moderate aortic stenosis Code(s): I35.0 - NONRHEUMATIC AORTIC (VALVE) STENOSIS Status: Chronic (12) Moderate mitral regurgitation Code(s): I34.0 - NONRHEUMATIC MITRAL (VALVE) INSUFFICIENCY Status: Chronic (13) Folate deficiency Code(s): E53.8 - DEFICIENCY OF OTHER SPECIFIED B GROUP VITAMINS Status: Acute (14) Hypoxia Code(s): R09.02 - HYPOXEMIA Status: Acute - Plan cont current plan of care, social work msw * medication reviewed as below * symptomatic treatment * see discharge tanner. Review of Systems - Review of Systems ENT: negative: Ear Pain, Ear Discharge, Nose Pain, Nose Discharge, Nose Congestion, Mouth Pain, Mouth Swelling, Throat Pain, Throat Swelling, Other Respiratory: negative: Cough, Dry, Shortness of Breath, Hemoptysis, SOB with Excertion, Pleuritic Pain, Sputum, Wheezing Cardiovascular: negative: chest pain, palpitations, orthopnea, paroxysmal nocturnal dyspnea, edema, light headedness, other Gastrointestinal: negative: Nausea, Vomiting, Abdominal Pain, Diarrhea, Constipation, Melena, Hematochezia, Other Genitourinary: negative: Dysuria, Frequency, Incontinence, Hematuria, Retention , Other Musculoskeletal: negative: Neck Pain, Shoulder Pain, Arm Pain, Back Pain, Hand Pain, Leg Pain, Foot Pain, Other - Medications/Allergies Allergies/Adverse Reactions: Allergies Allergy/AdvReac Type Severity Reaction Status Date / Time codeine Allergy Swollen Verified 12/17/17 22:50 Lips Medications: Current Medications Acetaminophen (Tylenol) 650 mg PO Q4H PRN PRN Reason: Headache/Fever or Pain Last Admin: 12/25/17 15:11 Dose: 650 mg Al Hydroxide/Mg Hydroxide (Maalox) 15 ml PO Q4H PRN PRN Reason: Heartburn or Indigestion Amlodipine Besylate (Norvasc) 10 mg PO DAILY [facility] Last Admin: 01/01/18 10:20 Dose: 10 mg Artificial Tears (Tears Naturale) 0 drop EA EYE PRN PRN PRN Reason: Dry Eyes Atorvastatin Calcium (Lipitor) 80 mg PO [facility] Last Admin: 12/31/17 20:49 Dose: 80 mg Bisacodyl (Dulcolax) 10 mg [place] DAILYPRN PRN PRN Reason: Constipation [facility] ([facility]) [facility] Last Admin: 01/01/18 10:21 Dose: 25 mg Cholecalciferol (Vitamin D3) 2,000 units PO [facility] Last Admin: 12/31/17 20:49 Dose: 2,000 units Dextrose/Water (Dextrose 50%) 25 gm SLOW IVP PRN PRN PRN Reason: Hypoglycemia Diphenhydramine HCl (Benadryl) 25 mg IVP Q6H PRN PRN Reason: Itching Last Admin: 12/25/17 15:11 Dose: 25 mg Docusate Sodium (Colace) 100 mg PO BID [facility] Last Admin: 01/01/18 10:20 Dose: 100 mg Epoetin Chai (Procrit) 10,000 units IVP MWF@0900 [facility] Last Admin: 12/31/17 14:00 Dose: 10,000 units Fentanyl (Sublimaze) 25 mcg SLOW IVP Q4H PRN PRN Reason: Pain Last Admin: 12/30/17 23:56 Dose: 25 mcg Ferrous Sulfate (Feosol) 325 mg PO QA-[facility] Last Admin: 01/01/18 10:21 Dose: 325 mg Folic Acid (Folvite) 1 mg PO DAILY [facility] Last Admin: 01/01/18 10:21 Dose: 1 mg Glucagon (Glucagon) 1 mg IM PRN PRN PRN Reason: Hypoglycemia Guaifenesin (Robitussin Sf) 200 mg PO Q4H PRN PRN Reason: Cough Guaifenesin/Dextromethorphan (Robitussin Dm) 15 ml PO Q4H PRN PRN Reason: Cough Last Admin: 12/19/17 04:52 Dose: 15 ml Heparin Sodium (Porcine) (Heparin) 5,000 units SC BID [facility] Last Admin: 01/01/18 10:19 Dose: 5,000 units Hydralazine HCl (Apresoline) 10 mg SLOW IVP Q4H PRN PRN Reason: Systolic BP > 180 Dextrose/Water (D5w) 1,000 mls @ 0 mls/hr IV .Q0M PRN; As Directed PRN Reason: Hypoglycemia Insulin Human Lispro (Humalog) 0 units SC .MODERATE SLIDING SC PRN PRN Reason: Moderate Correctional Scale Last Admin: 12/30/17 17:02 Dose: 4 unit Insulin Human Lispro (Humalog) 0 units SC .BEDTIME SLIDING SC PRN PRN Reason: Bedtime Correctional Scale Last Admin: 12/29/17 21:12 Dose: 2 unit Loperamide HCl (Imodium) 2 mg PO PRN PRN PRN Reason: Diarrhea/Loose Stools Loratadine (Claritin) 10 mg PO DAILYPRN PRN PRN Reason: Sinus Symptoms Mineral Oil/White Petrolatum (Eucerin Cream) 0 gm TOP BIDPRN PRN PRN Reason: Dry Skin Ondansetron HCl (Zofran Odt) 4 mg PO Q6H PRN PRN Reason: Nausea/Vomiting Last Admin: 12/30/17 15:34 Dose: 4 mg Ondansetron HCl (Zofran) 4 mg IVP Q6H PRN PRN Reason: Nausea/Vomiting Pantoprazole Sodium (Protonix) 40 mg PO DAILY [facility] Last Admin: 01/01/18 10:25 Dose: 40 mg Phenol (Chloraseptic [place] 180 Ml Bot) 0 ml PO PRN PRN PRN Reason: Sore Throat Prednisone (Prednisone) 60 mg PO QAM-[facility] Last Admin: 01/01/18 10:20 Dose: 60 mg Sodium Chloride (Flush - Normal Saline) 10 ml IVF PRN PRN PRN Reason: Saline Flush Last Admin: 01/01/18 10:24 Dose: 10 ml Sodium Chloride (Flush - Normal Saline) 10 ml IV Q12HR [facility] Last Admin: 01/01/18 10:22 Dose: 10 ml Sodium Chloride ([employer] Nasal [place] 0.65%) 0 ml EA NARE QIDPRN PRN PRN Reason: Nasal Congestion Temazepam (Restoril) 15 mg PO HSPRN PRN PRN Reason: Insomnia Tramadol HCl (Ultram) 50 mg PO Q8H PRN PRN Reason: Moderate Pain (4-6) Last Admin: 12/28/17 12:23 Dose: 50 mg Vitamin B Complex/Vit C/Folic Acid (Nephro-Francisco Tablet) 1 tab PO DAILY [facility] Last Admin: 01/01/18 10:22 Dose: 1 tab
--- NOTE | 2018-01-01 11:49 | DIS ---
PRIMARY CARE PHYSICIAN: Dr. Norman Thakur DATE OF ADMISSION: 12/17/2017 DATE OF DISCHARGE: 01/01/2018 DISCHARGE DISPOSITION: [facility] home. PRIMARY DISCHARGE DIAGNOSES: 1. Acute kidney failure. 2. Anemia of end-stage renal disease. 3. End-stage renal disease, started dialysis. 4. Folate deficiency. 5. 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 6. Acute hypoxic respiratory failure. 7. Vitamin D deficiency. 8. Acute metabolic encephalopathy. SECONDARY DISCHARGE DIAGNOSES: Moderate mitral regurgitation, moderate aortic stenosis, hypertension , sensorineural deafness, dyslipidemia, diabetes type 2. PRIMARY PROCEDURE/OPERATION: AV fistula, tunneled hemodialysis catheter temporary hemodialysis [address] ter. Kidney biopsy. RADIOLOGICAL INVESTIGATION: Abdomen and pelvis CT scan, renal ultrasound, echocardiography, chest x- ray. SIGNIFICANT LABORATORY DATA: WBC 13.6, hemoglobin 8.8, platelet 226. INR 1.6, creatinine 2.79. [place] positive. Hepatitis profile negative. Stool for guaiac negative. Blood culture negative. DISCHARGE MEDICATIONS: Norvasc 10 mg p.o. daily, Lipitor 80 mg p.o. at bedtime, Coreg 25 mg p.o. b.i .d., vitamin D3 2000 units p.o. daily, ferrous sulfate 325 mg p.o. daily, folic acid 1 mg p.o. daily, Nephro-Francisco 1 tablet p.o. daily, Humalog insulin as per sliding scale, Protonix 40 mg p.o. daily, pr ednisone 60 mg p.o. daily. CONTRAINDICATIONS: None. CODE STATUS: DNR. INPATIENT CONSULTANTS: Dr. Roman was following for Nephropathy. Dr. Mariano was consulted for urinary retention. Dr. Bowman was following for aortic stenosis. Dr. Demarco was consulted for dialys is access. TEST RESULTS PENDING ON DISCHARGE: None. ALLERGIES: CODEINE. DISCHARGE PLAN: Post hospital, the patient is discharged to custodial home. Subsequently the patient will follow up with primary care physician. The patient is strongly advised to make appointm ent with the diesel lube tech. The patient will follow up with Dr. Demarco and Cardiology as instructed . HOSPITAL COURSE: An 82-year-old female who was admitted by Dr. Alfonso on 12/18/2017. The patie nt had acute kidney failure. The patient underwent a renal ultrasound which was unremarkable. The a bdomen and pelvis CT scan was also unremarkable. 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 Immunology was positive for ANCA vasculitis. The pa itm did not have any improvement in the renal function even after starting high dose of steroid and the patient was given 1 dose of Rituxan. The patient required hemodialysis. Dialysis access was do ne. The patient had transient retention and that is why Urology was following. [facility] for [facility] stenosis and mitral regurgitation. With help of patient case coordinator, we arranged custodial home. This patient's long-term prognosis is p oor. At this point, the patient is advised to follow up with Rheumatology, Nephrology, Cardiology an d primary care physician for further care after discharge. The patient is seen and examined at bedside today. Out of hospital DNR paperwork done. Discharge me dication reconciliation done. Paperwork for discharge done. Please see my progress note from today for further detail. Total time spent on discharge today was 31 minutes.
--- NOTE | 2018-01-01 12:00 | PRG ---
DATE OF SERVICE: 01/01/2018 SUBJECTIVE: Patient was seen and examined at bedside and overnight events noted. Patient denies any shortness of breath or chest pain or palpitation. No history of nausea or vomiting or diarrhea or f ever or chills or cramps. OBJECTIVE: GENERAL: This is an elderly white female in no apparent distress. VITAL SIGNS: Temperature 97.7, pulse 67, respiratory rate 18, blood pressure 158/66. HEENT: Atraumatic, normocephalic. Oral mucosa is moist. NECK: Supple. CARDIOVASCULAR: S1, S2 heard. Rate and rhythm regular. RESPIRATORY: Clear to auscultation. GASTROINTESTINAL: Abdomen is soft. MUSCULOSKELETAL: No tenderness. No edema. DERMATOLOGIC: No skin rash. NEUROLOGIC: Alert and awake and oriented x3. No focal neurologic deficits. Moving all the extremiti es. PSYCHIATRIC: Mood and affect normal. LABORATORY DATA: Potassium is 3.6, BUN is 39 and creatinine is 2.7. ASSESSMENT AND PLAN: 1. End-stage renal disease. Continue on dialysis Sunday, Sunday, and Sunday. 2. ANCA vasculitis, status post Rituxan and cellulitis status post IV steroids and currently on oral steroids. She got 1 dose of Rituxan. The patient needs Rituxan 3 more doses. 3. Anemia, status post transfusion, stable. 4. Edema, controlled. 5. Hypertension, stable. 6. Hyperkalemia, stable. The patient need to follow up with Rheumatology as outpatient for further Rituxan therapy for ANCA va sculitis. Continue dialysis Sunday, Sunday, and Sunday. We will follow.
[2018-01-01] MEDS: HumaLOG 300 UNITS/3 ML VIAL SC PRN (12:38)
== END 2018-01-01 14:41 | DRG 673 ==
LOC: ERS 19:17 → 2NO 20:34 → ONC 12-25 09:51
PROVIDERS: ADMIT Emergency Medicine; ATTEND Emergency Medicine
PROC: 0TB13ZX Excision of Left Kidney, Percutaneous Approach, Diagnostic (ICD-10-PCS; principal; 2017-12-21)
PROC: 5A1D70Z Performance of Urinary Filtration, Intermittent, Less than 6 Hours Per Day (ICD-10-PCS; 2017-12-22)
PROC: 06HM33Z Insertion of Infusion Device into Right Femoral Vein, Percutaneous Approach (ICD-10-PCS; 2017-12-23)
PROC: 5A1D70Z Performance of Urinary Filtration, Intermittent, Less than 6 Hours Per Day (ICD-10-PCS; 2017-12-23)
PROC: B34KZZZ Ultrasonography of Bilateral Upper Extremity Arteries (ICD-10-PCS; 2017-12-25)
PROC: 5A1D70Z Performance of Urinary Filtration, Intermittent, Less than 6 Hours Per Day (ICD-10-PCS; 2017-12-26)
PROC: 031C09F Bypass Left Radial Artery to Lower Arm Vein with Autologous Venous Tissue, Open Approach (ICD-10-PCS; 2017-12-27)
PROC: 05BF0ZZ Excision of Left Cephalic Vein, Open Approach (ICD-10-PCS; 2017-12-27)
PROC: 02HV33Z Insertion of Infusion Device into Superior Vena Cava, Percutaneous Approach (ICD-10-PCS; 2017-12-27)
PROC: 05HN33Z Insertion of Infusion Device into Left Internal Jugular Vein, Percutaneous Approach (ICD-10-PCS; 2017-12-27)
PROC: 5A1D70Z Performance of Urinary Filtration, Intermittent, Less than 6 Hours Per Day (ICD-10-PCS; 2017-12-28)
PROC: 5A1D70Z Performance of Urinary Filtration, Intermittent, Less than 6 Hours Per Day (ICD-10-PCS; 2017-12-31)
DX: N17.9 Acute kidney failure, unspecified (principal); J96.01 Acute respiratory failure with hypoxia; G93.41 Metabolic encephalopathy; E87.1 Hypo-osmolality and hyponatremia; E87.2 Acidosis; I12.0 Hypertensive chronic kidney disease with stage 5 chronic kidney disease or end stage renal disease; I77.6 Arteritis, unspecified; N18.6 End stage renal disease; E86.0 Dehydration; E11.22 Type 2 diabetes mellitus with diabetic chronic kidney disease; E78.5 Hyperlipidemia, unspecified; E87.5 Hyperkalemia; N08 Glomerular disorders in diseases classified elsewhere; D63.1 Anemia in chronic kidney disease; I08.0 Rheumatic disorders of both mitral and aortic valves; H90.5 Unspecified sensorineural hearing loss; F03.90 Unspecified dementia, unspecified severity, without behavioral disturbance, psychotic disturbance, mood disturbance, and anxiety; E55.9 Vitamin D deficiency, unspecified; E53.8 Deficiency of other specified B group vitamins; K59.00 Constipation, unspecified; Z88.5 Allergy status to narcotic agent; Z79.84 Long term (current) use of oral hypoglycemic drugs; Z79.899 Other long term (current) drug therapy
CPT/HCPCS: 36415; 36416; 36430; 50200; 71045; 71046; 74176; 76770; 77012; 80048; 80053; 80069; 82274; 82306; 82570; 82607; 82728; 82746; 83036; 83516; 83520; 83540; 83550; 83883; 83970; 84156; 85025; 85610; 85730; 86038; 86225; 86256; 86334; 86335; 86580; 86704; 86706; 86803; 86850; 86900; 86901; 87086; 87340; 88305; 88313; 88329; 88346; 88348; 88350; 90935; 93005; 93306; 93970; A4216; C1752; C1769; C9113; G0257; G0365; G8978-GP-CM; G8979-GP-CK; G8987-GO-CL; G8988-GO-CI; G8996-GN-CJ; G8997-GN-CI; J0670; J1200; J1642; J1644; J2001; J2270; J2704; J2720; J2930; J3010; J7050; J7506; J9310; P9016; Q0162; Q4081

== ENCOUNTER 2018-01-16 12:57 | Inpatient (IN) | payer MEDICARE ==
[2018-01-16 13:43] LABS: Bicarbonate (HCO3v) 29.4 mmol/L (1.0-85.0); CO2 Tension (PvCO2) 36.5 mmHg (41.0-51.0); Calcium, Ionized 0.98 mmol/L (1.12-1.32); Hemoglobin - Calc 7.4 g/dL (12.0-18.0); Lactate 2.28 mmol/L (0.50-2.20); Potassium 3.6 mmol/L (3.4-4.7); T. Carbon Dioxide 30.5 mmol/L (1.0-85.0); pH (Venous) 7.514 (7.35-7.45)
[2018-01-16 13:53] LABS: Bilirubin Small (Negative); Clarity TURBID (Clear); Glucose, Urine (Dipstick) Negative (Negative); Leukocyte Large (Negative); Nitrite Negative (Negative); Protein, Urine (Dipstick) 100 mg/dL (Neg-Trace); Specific Gravity, Urine 1.018 (1.002-1.036)
[2018-01-16 13:59] LABS: Pathc Cast-AUWi Flag 0.72 (0-2.49); Squamous Epithelial None Seen HPF (0-3)
[2018-01-16] MEDS ORDERED: Norepinephrine 8 MG/0.9% NS 250 ML ONE (14:02)
[2018-01-16 14:06] LABS: INR-International Normal Ratio 1.5; Prothrombin Time 17.9 SEC (12.0-14.7)
[2018-01-16 14:07] LABS: PTT 34.7 SEC (22.9-36.1)
[2018-01-16 14:07] LABS: Blood, Urine Large (Negative)
[2018-01-16 14:08] LABS: Bacteria/HPF 4+ HPF (None Seen); Hyaline Casts/LPF NONE SEEN LPF (0-3 Hyaline)
[2018-01-16 14:11] LABS: ALT (SGPT) 15 U/L (8-55); AST (SGOT) 34 U/L (5-34); Albumin 1.8 g/dL (3.4-4.8); Alkaline Phosphatase 111 U/L (40-150); Anion Gap 16 mmol/L (10-20); BUN (Urea Nitrogen) 46 mg/dL (9.8-20.1); Bilirubin, Total 0.8 mg/dL (0.2-1.2); Calc. Creatinine Clearance 0 mL/min (70-130); Calcium 7.2 mg/dL (7.8-10.44); Carbon Dioxide 23 mmol/L (23-31); Chloride 101 mmol/L (98-107); Estimated GFR-MDRD 14; Globulin 2.6 g/dL (2.4-3.5); Glucose 129 mg/dL (83-110); Magnesium 1.4 mg/dL (1.6-2.6); Potassium 3.5 mmol/L (3.5-5.1); Protein, Total 4.4 g/dL (6.0-8.3); Sodium 136 mmol/L (136-145)
[2018-01-16 14:22] LABS: Anisocytosis SLIGHT = 6-15 cells (100X) (0-5/hpf); Band 11 % (5-11); Burr Cells SLIGHT = 2-5 cells (100X) (0-1/hpf); Hemoglobin 7.7 g/dL (12.0-16.0); Lymphocytes 3 % (21-51); MDiff Complete? YES; Mean Corpuscular HGB CONC 33.2 g/dL (32.0-36.0); Mean Corpuscular Hemoglobin 31.7 pg (27.0-31.0); Mean Corpuscular Volume 95.4 fL (78.0-98.0); Mean Platelet Volume 8.6 fL (7.4-10.4); Monocytes 1 % (0-10); Neutrophil 85 % (42-75); PLT Morphology Comment Appears Decreased; Platelet Count 60 thou/uL (130-400); Polychromasia SLIGHT = 2-3 cells (100X) (0-2/hpf); RBC Distribution Width 16.6 % (11.5-14.5); Red Blood Cell (RBC) Count 2.41 mill/uL (4.20-5.40); Tear Drops SLIGHT = 2-5 cells (100X) (0-1/hpf); Vacuoles SLIGHT; White Blood Cell (WBC) Count 11.6 thou/uL (4.8-10.8)
--- NOTE | 2018-01-16 14:26 | RAD ---
CHEST 1 VIEW PORTABLE: Date: 01/16/18 HISTORY: 82-year-old female with history of syncopal episode, sepsis. COMPARISON: 12/27/17. FINDINGS: Minimal cardiomegaly. Bilateral vascular congestion. Alveolar parenchymal changes in the right mid an d right perihilar region, new from the prior study, certainly worrisome for the possibility of pneumo vale. Small right pleural effusion. Extensive parenchymal changes in the left mid and upper lung zone have resolved. There are some persistent parenchymal changes in the left lower lobe. IMPRESSION: Resolution of confluent parenchymal changes in the left upper lobe and right upper lobe, with some ne w parenchymal changes in the right mid lung zone and right perihilar region, as well as some persiste nt parenchymal changes in the left lower lobe, and small bilateral pleural effusions. These changes i n the right lung could certainly represent some acute pneumonia. Treatment and short-term follow-up s uggested. POS: ANDREY
[2018-01-16] MEDS ORDERED: Gentamicin 80 MG/2 ML VIAL ONE ×2 (16:24→16:28)
[2018-01-16] MEDS ORDERED: GENTAMICIN SULFATE IVPB SCH (16:45)
[2018-01-16] MEDS ORDERED: SODIUM CHLORIDE 0.9% IVPB SCH (16:45)
[2018-01-16 17:19] LABS: Lactic Acid 1.9 mmol/L (0.5-2.2)
[2018-01-16] MEDS ORDERED: Bisacodyl 10 MG SUPP PR PRN (19:14)
[2018-01-16] MEDS ORDERED: CCU Electrolyte Replacement 1 EACH FS SCH (19:14)
[2018-01-16] MEDS ORDERED: Senokot 8.6 MG TAB PO PRN (19:14)
[2018-01-16] MEDS ORDERED: Ondansetron HCl/PF 4 MG/2 ML Vial IVP PRN (19:14)
[2018-01-16] MEDS ORDERED: Bisacodyl 5 MG TAB PO PRN (19:14)
[2018-01-16] MEDS ORDERED: Potassium Chloride 40 MEQ in Sodium Chloride 0.9% 250 ML 250 ML IVPB PRN (19:41)
[2018-01-16] MEDS ORDERED: Magnesium Oxide 400 MG TAB PO PRN ×2 (19:41)
[2018-01-16] MEDS ORDERED: Potassium Chloride 20 MEQ TAB PO PRN (19:41)
[2018-01-16] MEDS ORDERED: Potassium Chloride 40 MEQ in Premix Bag 1 BAG IVPB PRN (19:41)
[2018-01-16] MEDS ORDERED: Magnesium 2 GM/NS 0.9% 100 ML 2 GM in Premix Bag 1 BAG IVPB PRN (19:41)
[2018-01-16] MEDS ORDERED: Potassium Phosphate 9 MMOL in Sodium Chloride 0.9% 100 ML IVPB PRN (19:41)
[2018-01-16] MEDS ORDERED: CCU ELECTROLYTE REPLACEMENT PROTOCOL FS PRN (19:41)
[2018-01-16] MEDS ORDERED: Potassium Phosphate 15 MMOL in Sodium Chloride 0.9% 250 ML 250 ML IV PRN (19:41)
[2018-01-16] MEDS ORDERED: Potassium Phosphate 12 MMOL in Sodium Chloride 0.9% 250 ML 250 ML IV PRN (19:41)
[2018-01-16] MEDS ORDERED: cefTRIAXone\\ROCEPHIN 1 GM in Sodium Chloride 0.9% 100 ML IVPB SCH (20:00)
[2018-01-16 20:27] LABS: Mean Corpuscular HGB CONC 32.9 g/dL (32.0-36.0); Mean Corpuscular Hemoglobin 31.3 pg (27.0-31.0); Mean Platelet Volume 8.8 fL (7.4-10.4); Platelet Count 53 thou/uL (130-400); RBC Distribution Width 16.3 % (11.5-14.5); Red Blood Cell (RBC) Count 2.87 mill/uL (4.20-5.40); White Blood Cell (WBC) Count 16.6 thou/uL (4.8-10.8)
[2018-01-16 20:57] LABS: Band 44 % (5-11); Eosinophils 1 % (0-10); Lymphocytes 1 % (21-51); MDiff Complete? YES; Neutrophil 54 % (42-75); PLT Morphology Comment Appears Decreased
[2018-01-16] MEDS ORDERED: Heparin 5,000 UNITS/ML VIAL SC SCH (21:00)
[2018-01-16] MEDS ORDERED: Famotidine/PF 20 mg/2ml Vial SLOW IVP SCH (21:00)
[2018-01-16] MEDS ORDERED: Vancomycin HCl 1 GM in Premix Bag 1 BAG IVPB SCH (21:30)
--- NOTE | 2018-01-16 21:36 | RAD ---
PORTABLE SUPINE FRONTAL CHEST RADIOGRAPH: 01/16/18 at 7:48 p.m. COMPARISON: 01/16/18 at 1:16 p.m. HISTORY: Syncopal episode. FINDINGS: There is a right sided dialysis catheter in stable position. Supine imaging limits assessment for pne umothorax and pleural fluid. There is pulmonary vascular congestion, stable. There is interstitial an d alveolar opacity noted in the left base and the right hilar region, stable. Diffuse increased linea r interstitial density noted bilaterally, right greater than left, stable as well. IMPRESSION: Stable appearance of the chest as above. Pulmonary parenchymal opacities may be on the basis of edema , infectious pneumonitis and/or aspiration. Followup imaging following treatment to document resoluti on advised. POS: ANDREY
[2018-01-16 21:52] VITALS: BMI 28.1
[2018-01-16] MEDS: Sodium Chloride 0.9% 1,000 ML IV SCH (21:57)
[2018-01-16] MEDS: Docusate 100 MG CAP PO SCH (22:00)
[2018-01-16] MEDS: Hydrocortisone Sod Succ/PF 100 mg/2 ml Vial IVP SCH (22:41)
--- NOTE | 2018-01-17 00:03 | CON ---
DATE OF CONSULTATION: 01/16/2018 CONSULTING PHYSICIAN: ____ REASON FOR CONSULTATION: End-stage renal disease, evaluation and care. REASON FOR ADMISSION: Weakness. HISTORY OF PRESENT ILLNESS: An 82-year-old elderly female with history of hypertension, type 2 diabe jakub, hyperlipidemia came to the hospital with weakness. 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 She is being admitted for possible UTI and sepsis. Nephrology consulted, maintenance hemodialysis, she gets dialysis Sunday, Sunday, and Sunday. Nicholas wheeler is very weak and hypotensive. She is hard of hearing. No chest pain, shortness of breath reported. PAST MEDICAL HISTORY: Possible hypertension, type 2 diabetes, hyperlipidemia, ANCA vasculitis, end-s tage renal disease recently started on dialysis on Sunday, Sunday, and Sunday. Hard of hearing. PAST SURGICAL HISTORY: C section and dialysis access placement. HOME MEDICATIONS: Prednisone 60 mg daily, Protonix 40 mg daily, ferrous sulfate 325 daily, Coreg 25 mg b.i.d., atorvastatin, amlodipine 10 mg daily. ALLERGIES: CODEINE. SOCIAL HISTORY: No smoking, alcohol, or illicit drug abuse. FAMILY HISTORY: No history of any kidney disease. REVIEW OF SYSTEMS: The following complete review of systems was negative, unless otherwise mentioned in the HPI or below: Constitutional: Weight loss or gain, ability to conduct usual activities. Sk in: Rash, itching. Eyes: Double vision, pain. ENT/Mouth: Nose bleeding, neck stiffness, pain, te nderness. Cardiovascular: Palpitations, dyspnea on exertion, orthopnea. Respiratory: Shortness of breath, wheezing, cough, hemoptysis, fever, or night sweats. Gastrointestinal: Poor appetite, abdo arely pain, heartburn, nausea, vomiting, constipation, or diarrhea. Genitourinary: Urgency, frequen cy, dysuria, nocturia. Musculoskeletal: Pain, swelling. Neurologic/Psychiatric: Anxiety, depressi on. Allergy/Immunologic: Skin rash, bleeding tendency. PHYSICAL EXAMINATION: GENERAL: This is an elderly female in no apparent distress. VITAL SIGNS: Temperature 98.6, pulse 70, respiratory rate 22, blood pressure 93/48. HEENT: Atraumatic, normocephalic. Oral mucosa is moist. NECK: Supple, no masses. CARDIOVASCULAR: S1, S2. Rate and rhythm regular. RESPIRATORY: Clear. MUSCULOSKELETAL: 1+ edema. DERMATOLOGIC: No skin rash. NEUROLOGIC: Alert and awake. PSYCH: Mood and affect normal. LABORATORY DATA: Hemoglobin 7.7. Potassium 3.6, BUN is 46, creatinine is 4.24. ASSESSMENT AND PLAN: 1. End-stage renal disease, no acute needs for dialysis given hypotension. We will hold dialysis to day. 2. Edema, controlled. 3. Hypertension, stable. 4. Anemia. Agree with transfusion. 5. Sepsis per primary team. 6. Anti-neutrophil cytoplasmic antibodies vasculitis. Okay with reducing the steroid dose to predni sone to 40 mg p.o. daily. 7. Follow up with nuclear security officer as an outpatient and consider Pulmonology consult. 8. We will continue to follow. No dialysis today.
[2018-01-17] MEDS ORDERED: Vancomycin HCl 1 GM in Premix Bag 1 BAG IVPB SCH (04:45)
[2018-01-17] MEDS: Hydrocortisone Sod Succ/PF 100 mg/2 ml Vial IVP SCH ×2 (05:20→14:31)
[2018-01-17] MEDS: Sodium Chloride 0.9% 1,000 ML IV SCH ×2 (05:21→08:37)
[2018-01-17 05:47] LABS: Anion Gap 18 mmol/L (10-20); BUN (Urea Nitrogen) 53 mg/dL (9.8-20.1); Calc. Creatinine Clearance 13 mL/min (70-130); Calcium 7.3 mg/dL (7.8-10.44); Carbon Dioxide 23 mmol/L (23-31); Chloride 103 mmol/L (98-107); Estimated GFR-MDRD 13; Glucose 187 mg/dL (83-110); Magnesium 1.4 mg/dL (1.6-2.6); Potassium 4.2 mmol/L (3.5-5.1); Sodium 140 mmol/L (136-145)
[2018-01-17 06:09] LABS: Band 32 % (5-11); Hemoglobin 9.1 g/dL (12.0-16.0); Lymphocytes 7 % (21-51); MDiff Complete? YES; Mean Corpuscular HGB CONC 31.9 g/dL (32.0-36.0); Mean Corpuscular Hemoglobin 30.4 pg (27.0-31.0); Mean Corpuscular Volume 95.3 fL (78.0-98.0); Mean Platelet Volume 9.4 fL (7.4-10.4); Neutrophil 61 % (42-75); PLT Morphology Comment Appears Decreased; Platelet Count 48 thou/uL (130-400); RBC Distribution Width 16.6 % (11.5-14.5); Red Blood Cell (RBC) Count 2.99 mill/uL (4.20-5.40); White Blood Cell (WBC) Count 16.3 thou/uL (4.8-10.8)
[2018-01-17] MEDS ORDERED: Albumin 25% 25 GM/100 ML BOT IVPB ONE (08:09)
[2018-01-17] MEDS: Norepinephrine 8 MG/0.9% NS 250 ML IVPB SCH ×2 (08:24→12:19)
[2018-01-17] MEDS ORDERED: Vasopressin 40 UNIT, Admixture Fee 1 EACH in Sodium Chloride 0.9% 100 ML IV SCH (08:30)
[2018-01-17] MEDS: Docusate 100 MG CAP PO SCH (08:37)
--- NOTE | 2018-01-17 08:55 | HP ---
CHIEF COMPLAINT: Altered mental status. HISTORY OF PRESENT ILLNESS: This is an 82-year-old female with a recent stay in our facility from which she was discharged on 01/01/2018. The patient has a known history of glomerulonephritis due and ankle vasculitis along with end- stage renal disease on hemodialysis and was residing in a nursing facility when she was found to have altered mental status. The patient was subsequently brought to our facility. Of note, the patient is a very, very poor historian with a known baseline of dementia with likely superimposed metabolic encephalopathy at the time of my evaluation. Patient has a nonrebreather mask in place and is somnolent, but arousable. EMERGENCY ROOM COURSE: The patient was found to have decreased mentation as noted above. Initial evaluation demonstrated a urinary tract infection and possible pneumonia as well. The patient was given IV fluids and it appears that she has received an initial 30 mg/kg bolus in the emergency department and was subsequently started on Levophed for pressor support. Status post fluid and pressor support, the patient's mentation significantly improved to the point of being arousable and intermittently conversant and following one-step commands. This is grossly the patient's mentation as I am evaluating her. REVIEW OF SYSTEMS: Unable to be obtained secondary to the patient's mentation as above. PAST MEDICAL AND SURGICAL HISTORY: As per HPI, includes the followin. Known end-stage renal disease on hemodialysis. 2. 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 3. Urinary retention. 4. Aortic stenosis with a valvular area slightly over 1 sq cm. 5. Mitral regurgitation. 6. Prior history of acute hypoxic respiratory failure during prior hospitalization, which was resolved at the time of discharge. 7. Hypertension. 8. Hyperlipidemia. 9. Type 2 diabetes. 10. Folate and vitamin D deficiencies. 11. Status post . HOME MEDICATIONS: Please see the EMR for full details. The patient's home list includes the following: Folic acid 1 mg p.o. daily, ferrous sulfate 325 mg p.o. q.a.m., carvedilol 25 mg p.o. b.i.d., atorvastatin 80 mg p.o. at bedtime, Nephro-Francisco 1 tab p.o. daily, Pantoprazole 40 mg p.o. daily, Humalog sliding scale t.i.d., prednisone 60 mg p.o. q.a.m. ALLERGIES: Includes CODEINE, which causes swollen lips. FAMILY HISTORY: As per prior records, no known family history of end-stage renal disease. SOCIAL HISTORY: The patient resides in a nursing facility. She is accompanied by her [id number] DNR paperwork. This was confirmed both palliative care _ ____ the patient on immediate prior hospitalization. It appears that the patient has a son, Toby, who is primary MPOA and also np-[id number]-law, Jody, who appears may also be involved in the patient's medical decision making when and as needed. No apparent history of alcohol, tobacco or illicit drug use for this patient. PHYSICAL EXAMINATION: GENERAL: The patient is somnolent, but arousable, lying in the hospital bed, nonrebreather mask in place. HEENT: Normocephalic, atraumatic. Dry mucous membranes. CARDIOVASCULAR: S1, S2 with prominent systolic ejection murmur. Pulses 1+ bilateral in upper extremities. No other murmurs, rubs or gallops appreciated. RESPIRATORY: Limited anterior examination. Diminished throughout. No overt wheezes, rales or rhonchi. ABDOMEN: Positive bowel sounds, soft, nontender to palpation. LABORATORY DATA AND IMAGING: On 01/16/2018, chest x-ray. Impression: Stable appearance of the chest as above. Pulmonary parenchymal opacities may be on the basis of edema. Infectious pneumonitis and/or aspiration. Follow up imaging following treatment to document resolution advised. WBC 11.6, hemoglobin 7.7, hematocrit 23.0, platelets of 16, and PT of 17.9, INR 1.5. VBG with a pH of 7.514, pCO2 36.5, pO2 of 73.0. Sodium 136, potassium 3.5, chloride 101, bicarbonate 23, BUN 46, creatinine 3.18, glucose 129. Initial lactate 2.5 with repeat that is 1.0, calcium 7.2, magnesium 1.4, total bilirubin 0.8, AST 35, ALT 15, alkaline phosphatase 115. TSH . UA significant for 100 of protein, trace ketones, large blood, small bilirubin, large leukocyte esterase and urine WBCs greater than 50+ and urine bacteria 4+. ASSESSMENT AND PLAN: Ms. Vernon Ramos is an 82-year-old female with end- stage renal disease on hemodialysis secondary to glomerulonephritis who presented with a chief complaint of altered mental status. 1. Altered mental status likely union representative of metabolic encephalopathy, concern for possible relation to her presentation of septic shock. We will closely monitor the patient's neurological status along with initial treatment for her underlying issues. 2. Septic shock. The patient has received IV fluids, is currently undergoing a central venous line procedure with the [facility] for IV access. The patient is also currently on pressor support as well, we will titrate as tolerated. I appreciate Critical Care consultation. Likely source of infection is suspected to be either urine or pulmonary or with a possible combination of both. Unclear if the patient's opacities represent de suzanne pneumonia, or an aspiration type pattern given the patient's mental status. The patient also has pending urine, respiratory and blood cultures. We would empirically cover the patient broadly given her recent hospitalization and for need to cover for MRSA organisms. Patient has currently been started on empiric vancomycin, ceftriaxone and gentamicin with renal doses for the above as applicable. Of note, the patient has cleared her lactic acid. 3. Question of acute hypoxic respiratory failure. The patient is currently on a nonrebreather. We will try to maintain O2 saturations above 92%. Patient is BiPAP p.r.n. If failure to improve, we will dillon out for obtaining a subsequent ABG. 4. Urinary tract infection with empiric antibiotics as described above. 5. Pneumonia with empiric antibiotics as described above and supplemental O2 support as described above. 6. End-stage renal disease on hemodialysis. I appreciate Nephrology consultation for this patient. The patient currently appears to have stable electrolyte status and we will closely monitor and re-monitor. 7. Anemia, suspected to be acute. The patient with no overt evidence of blood loss. The patient has received 1 unit of PRBC in the emergency department. We will evaluate for potential sources of blood loss, Hemoccult stool. We will closely monitor the patient's H&H serially. Please note concern including associated thrombocytopenia. 8. Thrombocytopenia. We will hold pharmacological deep venous thrombosis prophylaxis due to very low platelets. The patient currently did appear grossly hemodynamically stable. We will check a DIC panel. 9. Known history of aortic stenosis, moderate to severe, along with accompanying mitral regurgitation. Close assessment of the patient's respiratory status in the process of fluid resuscitation. 10. Hypertension. The patient is currently hypotensive. IV fluid resuscitation and close monitoring of cardiorespiratory status as described above. 11. Hyperlipidemia, stable. 12. Diabetes type 2. We will closely monitor the patient's blood sugar with serial Accu-Cheks. Sliding scale insulin if and as needed. 13. Hypomagnesemia. We will replete as needed and recheck in the morning. 14. Diet: Patient may be allowed a renal diet when her mentation is sufficient to safely swallow. Otherwise, with current state of metabolic encephalopathy, the patient is a swallow and aspiration risk. I appreciate Speech consultation. 15. Activity: As tolerated, although the patient is currently more or less bedbound due to her medical issues. The patient is a very high risk of further deconditioning. Low threshold for physical therapy involvement as tolerated. 16. Deep venous thrombosis prophylaxis with mechanical prophylaxis secondary to thrombocytopenia as described above. 17. Code status: DNR/DNI as described above. Overall poor prognosis Greater than 30 minutes of critical care time spent for patient at bedside on date of admission, 01/16/2018. Thank you for asking me to care of the patient. CLAUDY
[2018-01-17] MEDS ORDERED: Prevnar 13-Val Conj/PF 0.5 ML SYRINGE IM ONE (09:00)
[2018-01-17 09:20] LABS: Fibrinogen 560 mg/dL (253-463)
[2018-01-17 09:21] LABS: INR-International Normal Ratio 1.6; PTT 40.2 SEC (22.9-36.1); Prothrombin Time 18.7 SEC (12.0-14.7)
[2018-01-17 09:24] LABS: Platelet Count 48 thou/uL (130-400)
[2018-01-17 09:29] LABS: D-Dimer Test 5.28 *mcg/mL (0.27-0.43)
--- NOTE | 2018-01-17 09:30 | CON ---
DATE OF CONSULTATION: 01/17/2018 HISTORY: This is an 82-year-old female, demented, unable to give any history. Apparently she comes from the custodial after she was found to be hypotensive. Blood pressure was 80 systolic on Levophed, pulse 75, sats are 92%, respiration 32. She is on a nonr ebreather. Absolutely unable to get any history. She was just recently discharged from the hospital with a diagnosis of renal failure, recurrent urinary tract infection, sepsis, apparently ANKA vascul itis. Her primary care doctor appears to be in [place]. It is unclear whether she smokes. PAST MEDICAL HISTORY: Otherwise, pertinent for apparently diabetes, hypertension, cholesterol. PAST SURGICAL HISTORY: . SOCIAL/FAMILY HISTORY: Unclear, she has a son. He has got cerebral palsy. She is a DNR as per the notes. MEDICATIONS: Her medicine from the custodial includes folic acid, Coreg 25 twice a day, Protonix 40, prednisone 60. PHYSICAL EXAMINATION: VITAL SIGNS: Pulse 76, blood pressure 85/40, sats 92% on nonrebreather, respirations 31. CHEST: Extensive rhonchi and crackles. CARDIAC: Normal S1-S2. No gallops. ABDOMEN: Soft. LABORATORY: White count 16,000, H&H 9 and 28, platelet count is low 48,000. This is new since the l ast admission. Creatinine 3.6, BUN is 53. WBC shows E. coli. Blood culture is growing Staph aureus . X-ray shows extensive infiltrate, right greater than left, appears to have not changed much from the previous admission about 3 weeks ago. IMPRESSION: 1. Respiratory failure. 2. Bilateral bronchopneumonia versus fluid overload. 3. Renal failure. 4. Apparently a diagnosis of vasculitis has been made somewhere down the line. 5. Necrotizing glomerulonephritis following a biopsy. 6. DNR. 7. Diabetes. PLAN: 1. I have given her vancomycin for Staph aureus culture. 2. She needs dialysis. 3. She is on Rocephin for presumed E. coli, probably should be adequate. Await culture and sensitiv ities. 4. Will deescalate stress dose of steroids. 5. If blood pressure remains low, we will add low dose vasopressor. I will follow. Forty-five minutes critical care time. I am going to try and discuss with family as they arrive.
[2018-01-17 10:21] LABS: FSP-Qualitative ABNORMAL (Normal); FSP-Semiquantitative >=5 & <20 mcg/mL (Less than 5)
--- NOTE | 2018-01-17 11:58 | PRG ---
DATE OF SERVICE: 01/17/2018 SUBJECTIVE: The patient was seen and examined at the bedside in ICU. The patient remains hypotensiv e 80s/40s despite being on max dose of vasopressin and Levophed. She is on nonrebreather mask and is very fluid overloaded with crackles and hypoxia, very confused. OBJECTIVE: GENERAL: This is an elderly white female in mild distress. VITAL SIGNS: Temperature 97.6, pulse 81, respiratory rate 18, blood pressure 83/42. HEENT: Atraumatic, normocephalic. NECK: Supple. CARDIOVASCULAR: S1, S2 heard. RESPIRATORY: Coarse breath sounds. Coarse crackles bilaterally. ABDOMEN: Soft. MUSCULOSKELETAL: 1+ edema. DERMATOLOGIC: No skin rash. NEUROLOGIC: Confused. LABORATORY DATA: WBC 16.3, hemoglobin is 9.1, potassium 4.2, BUN 53, creatinine 3.3. ASSESSMENT AND PLAN: 1. End-stage renal disease. The patient is a poor candidate for dialysis. The patient's blood pres sure is 80s/40s on pressors. She is fluid overloaded, but not able to have any ultrafiltration given her hypotension. 2. Septic shock, currently on pressors and broad spectrum antibiotics. 3. Edema, stable with fluid overload. 4. Anemia. 5. ANCA vasculitis. 6. Chronic immunosuppression. Prognosis very guarded. The patient is DNR, not able to have dialysis. Continue supportive care. Krystle martin was talking to the daughter and updated her about the very poor prognosis. We will follow.
[2018-01-17 14:17] VITALS: TEMP 97
[2018-01-17] MEDS ORDERED: cefTRIAXone\\ROCEPHIN 1 GM in Sodium Chloride 0.9% 100 ML IVPB SCH (20:00)
--- NOTE | 2018-01-17 23:32 | PDOC.EVN ---
Event Note - Event Note Event Note: Patient passed 01/17/18 a 15:17 causes of : septic shock MSSA bacteremia multi organ failure ANCA vasculitis
[2018-01-19] MEDS ORDERED: Vancomycin HCl 750 MG in Sodium Chloride 0.9% 250 ML 250 ML IVPB SCH (04:00)
== END 2018-01-17 17:10 | disposition expired | DRG 871 ==
LOC: ERS 12:57 → CCU 21:27
PROVIDERS: ADMIT Internal Medicine; ATTEND Internal Medicine
PROC: 3E033XZ Introduction of Vasopressor into Peripheral Vein, Percutaneous Approach (ICD-10-PCS; principal; 2018-01-16)
PROC: 06HY33Z Insertion of Infusion Device into Lower Vein, Percutaneous Approach (ICD-10-PCS; 2018-01-16)
DX: A41.01 Sepsis due to Methicillin susceptible Staphylococcus aureus (principal); R65.21 Severe sepsis with septic shock; N18.6 End stage renal disease; J18.9 Pneumonia, unspecified organism; G93.41 Metabolic encephalopathy; J96.01 Acute respiratory failure with hypoxia; I12.0 Hypertensive chronic kidney disease with stage 5 chronic kidney disease or end stage renal disease; N39.0 Urinary tract infection, site not specified; D63.1 Anemia in chronic kidney disease; F03.90 Unspecified dementia, unspecified severity, without behavioral disturbance, psychotic disturbance, mood disturbance, and anxiety; I77.89 Other specified disorders of arteries and arterioles; N05.8 Unspecified nephritic syndrome with other morphologic changes; Z66 Do not resuscitate; I08.0 Rheumatic disorders of both mitral and aortic valves; E11.22 Type 2 diabetes mellitus with diabetic chronic kidney disease; D69.6 Thrombocytopenia, unspecified; E78.5 Hyperlipidemia, unspecified; E83.42 Hypomagnesemia; Z99.2 Dependence on renal dialysis; Z79.52 Long term (current) use of systemic steroids; Z79.4 Long term (current) use of insulin
CPT/HCPCS: 36415; 36416; 36430; 36556; 51702; 71045; 80048; 80053; 81003; 81015; 82330; 82803; 83605; 83735; 84443; 85025; 85049; 85300; 85362; 85379; 85384; 85610; 85730; 86850; 86900; 86901; 87040; 87077; 87086; 87149; 87186; 93005; 96365; 96366; 96368; 99292; C1769; J0696; J1580; J1720; J2270; J3370; J3411; J7050; P9016; P9047